=== PATIENT | male | born 1940 | race Caucasian/White ===

== ENCOUNTER 2019-10-02 08:34 | Day surgery (SDC) | payer MEDICARE, OTHER, SELFPAY ==
[2019-10-01 14:31] VITALS: BMI 29.2
[2019-10-02 09:27] VITALS: BP 119/62; PULSE 76; RESP 18; TEMP 36.6; O2SAT 96
--- NOTE | 2019-10-02 09:30 | W.PM.OPSUD ---
Surgery/Procedure H&P Update DATE OF PROCEDURE: October 02, 2019 DATE H&P PERFORMED: 09/30/19 H&P UPDATE INFORMATION: I have reviewed H&P completed within last 30 days, I have examined patient prior to procedure and No changes to prior documentation PREOP DIAGNOSIS: Subcutaneous mass left arm PLANNED PROCEDURE: Operation Date: 10/02/19 10:15 Proposed Procedures p Excision Mass of subcutaneous left thumb 73071 R22.32(Not Applicable) - Antwan Moore MD
[2019-10-02] MEDS: sodium chloride 0.9% 1,000 ML 30 ML IV (09:33)
[2019-10-02 09:37] LABS: Glucose Point of Care 164 mg/dL (70-110)
--- NOTE | 2019-10-02 09:56 | ANES.PREANE2 ---
Pre-Anesthetic Assessment Pre-Anesthetic Assessment: Height/Weight: Height 1.6 m Weight 74.843 kg Temp Pulse Resp BP Pulse Ox 97.9 F 76 18 119/62 96 10/02/19 09:27 10/02/19 09:27 10/02/19 09:27 10/02/19 09:27 10/02/19 09:27 Preop Diagnosis: Subcutaneous mass left arm Proposed Procedure: Operation Date: 10/02/19 10:15 Proposed Procedures p Excision Mass of subcutaneous left thumb 69712 R22.32(Not Applicable) - Antwan Moore MD Was Beta Ofe taken within 24 hours: Yes Last intake: Intake Last Liquid Date 09/30/19 Last Liquid Time 14:00 Last Solid Date 09/30/19 Last Solid Time 14:00 Social: Comment: chews Exam: Pre-Anes Outpt Exam: alert, oriented x 3, clear to auscultation bilaterally and regular rate & rhythm Airway: Submandibular: WNL Cervical ROM: Other MP: 2 CV/HEM: CV/HEM: HTN and VA Comments: '16 Cabg Metabolic: Metabolic: DM Comments: 4Y, NORMALLY does not follow Anesthetic Plan: ASA status: 3 Anesthesia: MAC Meds/Allergies Current Medications: Current Medications Generic Name Dose Route Start Last Admin Trade Name Freq PRN Reason Stop Dose Admin Sodium Chloride 1,000 mls @ 30 ml s/hr 10/02/19 09:00 10/02/19 09:33 Sodium Chloride 0.9% IV 10/03/19 08:59 30 mls/hr .Q24H KRISTY Administration PFSH Anesthesia PFSH: Social History (Updated 10/01/19 @ 14:26 by Shelby Erwin) Smoking and tobacco status: never smoked Alcohol intake: never History of recent travel: No Data Anesthesia Other Labs: Laboratory Results - last 48 hr 10/02/19 09:35 POC Glucose 164 Cardiac Studies: No Data to Display
[2019-10-02] MEDS: lidocaine 1% INJ 20 mL IM (10:38)
[2019-10-02 11:24] VITALS: BP 97/48; PULSE 57; RESP 16; TEMP 37.3; O2SAT 97
--- NOTE | 2019-10-02 11:26 | PM.OP ---
Operative Report Date of procedure: October 02, 2019 Pre-op Diagnosis: Subcutaneous mass left thumb Post-op diagnosis: same Procedure Done: Excision of subcutaneous mass left thumb measuring 2.5 x 2.5 cm Specimens removed/disposition: Subcutaneous mass left thumb Surgeon: Antwan Moore Anesthesia: MAC Disposition: same day Procedure: The patient was taken to the operating room and placed under MAC after the left arm was prepped and draped in a sterile manner. Using a 15 blade an elliptical incision was made longitudinally measuring 4 cm extending from the metacarpophalangeal joint down to the base of the nailbed. Using combination of 15 blade and electrocautery the subcutaneous mass along with the overlying skin was dissected free from the surrounding subcutaneous tissue and underlying tendon. Medial and lateral skin flaps were raised and the skin was approximated using interrupted 3-0 Prolene suture. Incision was covered with antibiotic cream, Telfa and 2 inch Kerlix gauze and a splint was applied to prevent flexion. The patient was transferred to same-day surgery in stable condition.
[2019-10-02 11:47] VITALS: BP 91/46; PULSE 57; RESP 18; TEMP 37.2; O2SAT 98
== END 2019-10-02 12:12 | disposition home or self-care (01) ==
PROVIDERS: Family Provider Registered Nurse; PCP Registered Nurse; Visit Provider Surgery
PROC: (CPT 64788; principal; 2019-10-02 10:05)
DX: D36.12 Benign neoplasm of peripheral nerves and autonomic nervous system, upper limb, including shoulder (principal); F17.220 Nicotine dependence, chewing tobacco, uncomplicated; I10 Essential (primary) hypertension; I25.2 Old myocardial infarction; E11.9 Type 2 diabetes mellitus without complications; Z95.1 Presence of aortocoronary bypass graft; E78.5 Hyperlipidemia, unspecified; Z79.82 Long term (current) use of aspirin; Z79.84 Long term (current) use of oral hypoglycemic drugs
CPT/HCPCS: 64788; 12345; 36416; 82962; 88309; J2001; J2250; J2704; J3010; J3490; J7030

== ENCOUNTER 2023-10-11 16:09 | Inpatient (IN) | payer MEDICARE, OTHER, SELFPAY ==
[2023-10-11] VITALS (57 sets, daily range): BP systolic 103–170; BP diastolic 58–92; PULSE 70–133; RESP 10–48; TEMP 36.3–39.6; O2SAT 90–98
--- NOTE | 2023-10-11 16:10 | ECG_ITS ---
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 Measurements Intervals Sigel Rate: 117 P: 0 MS: 0 QRS: 14 QRSD: 135 T: 124 QT: 344 QTc: 481 Interpretive Statements ATRIAL FIBRILLATION WITH RAPID VENTRICULAR RESPONSE INTRAVENTRICULAR CONDUCTION DELAY [130+ ms QRS DURATION] Compared to ECG 01/14/2016 04:40:54 Intraventricular conduction delay now present Sinus tachycardia no longer present T-wave abnormality no longer present Myocardial infarct finding no longer present Electronically Signed On 10-12-2023 14:46:45 SEQUENCING MACHINE OPERATOR by Torres Zayas M.D. [id number]
--- NOTE | 2023-10-11 16:10 | CTR_ITS ---
PROCEDURE INFORMATION: Exam: CT Head Without Contrast Exam date and time: 10/11/2023 4:11 PM Age: 83 years old Clinical indication: Stroke-like symptoms; Altered mental status/memory loss; Additional info: Symptoms of acute stroke TECHNIQUE: Imaging protocol: Computed tomography of the head without contrast. Radiation optimization: All CT scans at this facility use at least one of these dose optimization techniques: automated exposure control; mA and/or kV adjustment per patient size (includes targeted exams where dose is matched to clinical indication); or iterative reconstruction. Other technique: STROKE PROTOCOL was implemented. COMPARISON: No relevant prior studies available. RADIATION DOSE METRICS: Total DLP (mGy-cm): 1872 FINDINGS: Brain: There is diffuse cerebral atrophy and chronic microvascular white matter disease. There is no significant mass effect or midline shift. There is no acute intracranial hemorrhage. Cerebral ventricles: There is mild ex vacuo dilation of the lateral ventricles. The basal cisterns are unremarkable. Paranasal sinuses: Normal edema. There is mucosal thickening and fluid in the left maxillary sinus. There is mucosal thickening in the ethmoid air cells bilaterally. There is mucosal thickening and fluid in the sphenoid sinuses bilaterally. Mastoid air cells: The mastoid air cells are clear. Orbital cavities: Probably chronic aspherical contour of the right globe. Right lens is not visible. No intraorbital edema. Bones/joints: The calvarium is intact. Soft tissues: The visible extracranial soft tissues are unremarkable. There is trace gas in the right cavernous sinus and in the upper right facial soft tissues, likely venous gas related to peripheral venipuncture. CT/CT head thrombolytic 02249 IMPRESSION: 1. No acute intracranial abnormality. 2. Left maxillary, bilateral sphenoid and bilateral ethmoid sinusitis, possibly acute. 3. Incidental findings above. ASSESSMENT: ASPECTS ([place] Stroke Program Early CT Score) is 10.
--- NOTE | 2023-10-11 16:28 | XRR_ITS ---
PROCEDURE INFORMATION: Exam: XR Chest Exam date and time: 10/11/2023 4:35 PM Age: 83 years old Clinical indication: Other: AMS; Additional info: SOB TECHNIQUE: Imaging protocol: Radiologic exam of the chest. Views: 1 view. COMPARISON: No relevant prior studies available. FINDINGS: Lungs: There is extensive patchy ground-glass opacity throughout both lungs. Pleural spaces: There is no pleural effusion or pneumothorax. Heart/Mediastinum: There is moderate enlargement of the cardiac silhouette. Bones/joints: Sternal wires are present. There is no displacement to suggest sternal dehiscence. XR/XR chest 1V portable [id number] IMPRESSION: 1. Extensive bilateral pulmonary opacity is nonspecific. Differential diagnosis includes cardiogenic pulmonary edema, infection, pulmonary hemorrhage, interstitial lung disease, and acute lung injury. 2. Cardiac enlargement.
[2023-10-11 16:33] LABS: Glucose Point of Care 310 mg/dL (70-110)
[2023-10-11 16:34] LABS: Basophils % 0.1 %; Hematocrit 37.6 % (37-53); Lymphocytes # 0.3 10^3/uL (0.8-4.8); Mean Corpuscular HGB Conc 33.5 g/dL (30-55); Mean Corpuscular Hemoglobin 31.8 pg (27-33); Mean Corpuscular Volume 94.9 fl (82-101); Mean Platelet Volume 9.5 fL (7.4-10.4); Monocytes # 0.3 10^3/uL (0.2-0.9); Monocytes % 3.8 %; Neutrophils # 7.47 10^3/uL (1.8-7.7); Neutrophils % 90.9 %; Nucleated Red Blood Cells % 0 %; Platelet Count 246 10^3/cmm (157-399); Red Blood Count 3.96 10^6/uL (3.85-5.65); Red Cell Distribution Width 12.9 % (12.1-15.1); White Blood Count 8.22 10^3/uL (3.29-11.43)
--- NOTE | 2023-10-11 16:37 | ED_ITS ---
HPI - Neuro Symptoms/Deficit 2 General: Chief Complaint: Altered Mental Status Stated Complaint: Stoke Alert Time Seen by Provider: 10/11/23 16:10 Source: patient and EMS Mode of arrival: EMS Limitations: no limitations History of Present Illness: 83-year-old male brought in by EMS for s troke alert per EMS home health states that he went to bed 1130 was normal and when he woke up at 230 he was quite confused not following commands and seemed weak. Patient here is able to tell me his name not really able answer any other questions he does move both arms he will not move either legs patient is tachypneic here in appears short of breath he is febrile to 103.2 no known recent illnesses. Patient's family here now states he did test positive for COVID 6 days ago Review of Systems 2 General: Reports: ROS unobtainable due to mental status PFSH ED 2 PFSH: Medical History Hx of coronary artery disease Hyperlipidemia Diabetes Hypertension Surgical History History of local excision of skin lesion Neurofibroma left thumb Hx of CABG Family History Denies family history of Anesthesia complication Bleeding disorder Social History Smoking and tobacco/nicotine status: never used tobacco/nicotine Alcohol intake: never Substance/Drug Use: never Physical Exam 2 Const: COMMON NORMALS: negative for patient oriented x3 GENERAL APPEARANCE: ill appearing HENMT: COMMON NORMALS: normocephalic and atraumatic HEAD & SCALP: n ormocephalic and atraumatic Eye: COMMON NORMALS: Equal, round and reactive pupils present and EOMs intact bilaterally PUPIL: Yes Equal, round and reactive pupils present Neck/C-Spine: COMMON NORMALS: full ROM and supple Chest: COMMONS NORMALS: normal inspection of the chest and normal palpation of entire chest wall Resp: EFFORT & INSPECTION: Yes tachypneic, Yes respiratory distress, Yes labored and Yes audible wheezes AUSCULTATION: rales Cardio: COMMON NORMALS: No murmurs present (Cardio) RATE: tachycardic R HYTHM: abnormal rhythm irregularly irregular GI: COMMON NORMALS: Normal to inspection, nondistended, normoactive bowel sounds present, Soft to palpation, non-tender and no masses PALPATION: Yes Soft to palpation Extremity: COMMON NORMALS: normal to inspection and full ROM Neuro: COMMON NORMALS: negative for patient oriented x3 Psych: COMMON NORMALS: negative for mental status grossly normal Skin: COMMON NORMALS: no rashes or lesions noted and no wounds GENERAL SKIN EXAM: no rashes or lesions noted Course 2 Vital Signs: Vital signs: Vital Signs Temperature 103.2 F H 10/11/23 16:15 Pulse Rate 114 H 10/11/23 17:45 Respiratory Rate 24 H 10/11/23 17:45 Blood Pressure 132/61 10/11/23 17:45 Pulse Oximetry 95 10/11/23 17:45 Oxygen Delivery Me thod BiPAP 10/11/23 17:45 Oxygen Flow Rate 2 10/11/23 16:40 Fraction of Inspir ed Oxygen 30 10/11/23 17:10 MDM - Neuro Symptoms/Deficit Medical Decision Making Patient presents here with confusion he has no focal deficits here he was in respiratory distress he tested positive for COVID 6 days ago his x-ray is consistent with a COVID-pneumonia he is on BiPAP here. His signs do qualify him for sepsis but I did stop his IV fluids as he appears fluid overloaded as well and his BNP is elevated and feel that we will do more harm with IV fluids spoke to the hospitalist will admit the ICU at this time. Medical Records I reviewed the patient's medical records. Lab Data I reviewed the patient's lab results. 10/11/23 16:26 10/11/23 16:[address] 10/11/23 16:10 IMPRESSION: 1. No acute intracranial abnormality. 2. Left maxillary, bilateral sphenoid and bilateral ethmoid sinusitis, possibly acute. 3. Incidental findings above. ASSESSMENT: ASPECTS ([place] Stroke Program Early CT Score) is 10. ADDENDUM: 10/11/23 0160 THIS REPORT CONTAINS FINDINGS THAT MAY BE CRITICAL TO PATIENT CARE. The findings and recommendations were verbally communicated by me via telephone conference with BRIANNE TODD at 4:43 PM PALLIATIVE MEDICINE PHYSICIAN on 10/11/2023. The findings were acknowledged and understood. Chest X-Ray 10/11/23 16:28 IMPRESSION: 1. Extensive bilateral pulmonary opacity is nonspecific. Differential diagnosis includes cardiogenic pulmonary edema, infection, pulmonary hemorrhage, interstitial lung disease, and acute lung injury. 2. Cardiac enlargement. Laboratory Results WBC 8.22 10^3/uL (3.29-11.43) 10/11/23 16:26 RBC 3.96 10^6/uL (3.85-5.65) 10/11/23 16:26 Hgb 12.60 g/dL (11.27-16.99) 10/11/23 16:26 Hct 37.6 % (37-53) 10/11/23 16:26 MCV 94.9 fl (82-101) 10/11/23 16:26 MCH 31.8 pg (27-33) 10/11/23 16:26 MCHC 33.5 g/dL (30-55) 10/11/23 16:26 RDW 12.9 % (12.1-15.1) 10/11/23 16:26 Plt Count 246 10^3/cmm (157-399) 10/11/23 16:26 MPV 9.5 fL (7.4-10.4) 10/11/23 16:26 Neut % (Auto) 90.9 % 10/11/23 16:26 Lymph % (Auto) 4.0 % 10/11/23 16:26 [place] % (Auto) 3.8 % 10/11/23 16:26 Eos % (Auto) 0.0 % 10/11/23 16:26 Baso % (Auto) 0.1 % 10/11/23 16:26 Neut # (Auto) 7.47 10^3/uL (1.8-7.7) 10/11/23 16:26 Lymph # (Auto) 0.3 10^3/uL (0.8-4.8) L 10/11/23 16:26 [place] # (Auto) 0.3 10^3/uL (0.2-0.9) 10/11/23 16:26 Eos # (Auto) 0.0 10^3/uL (0.0-0.8) 10/11/23 16:26 Baso # (Auto) 0.0 10^3/uL (0.0-0.1) 10/11/23 16:26 Nucleated RBC % (auto) 0 % 10/11/23 16:26 Nucleated RBCs # 0.0 /100WBC 10/11/23 16:26 PT 16.10 SECONDS (12.1-14.9) H 10/11/23 16:26 INR 1.25 (0.8-1.2) H 10/11/23 16:26 APTT 35.2 SECONDS (23.9-36.7) 10/11/23 16:26 Specimen Type Arterial 10/11/23 16:45 Sample Site Brachial, left 10/11/23 16:45 ABG pH 7.50 (7.35-7.45) H 10/11/23 16:45 ABG pCO2 30.3 mmHg (35-45) L 10/11/23 16:45 ABG pO2 89.4 mmHg (80.0-100.0) 10/11/23 16:45 ABG PO2/FiO2 Ratio 0 10/11/23 16:45 ABG HCO3 23.7 mmol/L (22-26) 10/11/23 16:45 ABG Base Excess 1.2 mmol/L (-2.0-2.0) 10/11/23 16:45 David Test N/a 10/11/23 16:45 Hematocrit 37.0 % (42-52) L 10/11/23 16:45 O2 Delivery Device Nc 10/11/23 16:45 O2 Liters/Min 2.0 % 10/11/23 16:45 FiO2 28.0 % 10/11/23 16:45 Substitute Teacher ID Amh 10/11/23 16:45 Sodium 133 mmol/L (136-145) L 10/11/23 16:26 Potassium 4.5 mmol/L (3.5-5.1) 10/11/23 16:26 Chloride 96 mmol/L (98-107) L 10/11/23 16:26 Carbon Dioxide 23 mmol/L (22-29) 10/11/23 16:26 Anion Gap 18.5 (5-19) 10/11/23 16:26 BUN 20 mg/dL (8-23) 10/11/23 16:26 Creatinine 0.9 mg/dL (0.7-1.2) 10/11/23 16:26 GFR Calculation Not Reportable 10/11/23 16:26 Glucose 317 mg/dL (65-115) H 10/11/23 16:26 POC Glucose 310 mg/dL (70-110) H 10/11/23 16:23 Calculated Osmolality 291 mOsm/kg (285-295) 10/11/23 16:26 Lactic Acid 2.2 mmol/L (0.5-2.2) 10/11/23 16:26 Calcium 8.1 mg/dL (8.5-10.5) L 10/11/23 16:26 Total Bilirubin 0.8 mg/dL (0.15-1.2) 10/11/23 16:26 AST 16 U/L (0-40) 10/11/23 16:26 ALT 29 U/L (0-41) 10/11/23 16:26 Alkaline Phosphatase 70 U/L (40-130) 10/11/23 16:26 Ammonia 18 umol/L (16-60) 10/11/23 16:26 NT-Pro-B Natriuret Pep 41715 pg/mL (0-450) H 10/11/23 16:26 Total Protein 6.8 g/dL (6.6-8.7) 10/11/23 16:26 Albumin 3.1 g/dL (3.5-5.2) L 10/11/23 16:26 Globulin 3.7 g/dL (1.3-4.6) 10/11/23 16:26 All radiology interpretation(s) finalized by discharge EKG Data EKG 1: I personally reviewed and interpreted this EKG as follows: EKG interpretation date: 10/11/23 EKG interpretation time: :24 Interpretation: afib with rvr hr [address] or twave abnormalities qrs 135 qtc 413 Critical Care Time 2 Critical Care Time: Critical Care Time: Yes Total Critical Care Time: 50 Attestation: The high probability of a clinically significant, sudden or life threatening deterioration of the patient's resp system(s) required my full and direct attention, intervention and personal management. The critical care time is as shown. This time is in addition to time spent performing any reported procedures but includes the following: [x] Data and vital sign review and interpretation [x] Patient assessment, examination and intervention [x] Documentation [x] Medication orders and management Discharge Plan Discharge Patient Disposition: Admitted As Inpatient Clinical Impression: Altered mental status, COVID-19, Acute respiratory failure with hypoxia Condition: Stable Coding Level of Care Code ED Decorator Inspector for Geoff Vidales
[2023-10-11] MEDS: ipratropium-albuterol 3 mL Neb INHALATION (16:40)
[2023-10-11 16:45] LABS: INR 1.25 (0.8-1.2)
[2023-10-11 16:46] LABS: Partial Thromboplastin Time 35.2 SECONDS (23.9-36.7)
[2023-10-11] MEDS: acetaminophen 1,000 MG/100 ML PIGGYBACK 400 MG IV (16:46)
[2023-10-11] MEDS: sodium chloride 0.9% 1,000 ML 999 ML IV (16:46)
--- NOTE | 2023-10-11 16:54 | PC.PHAR ---
PT'S FAMILY STATES HE HAS NOT BEEN TO THE DOCTOR IN OVER A YEAR. LAST MEDICATION FILLED WAS C[facility] AT [facility]. I PHONED [facility]ILIE [facility]. LAST MEDICATIONS ON THIS PT FILLED IN 2021. 10/11/23
[2023-10-11 16:56] LABS: ABG PCO2 30.3 mmHg (35-45); Base Excess ABG 1.2 mmol/L (-2.0-2.0); Blood Gas Operator Identificat AMH; Blood Gas Sample Site Brachial, left; Blood Gas Sample Type Arterial; HCO3 ABG 23.7 mmol/L (22-26); Oxygen Device NC; PO2 ABG 89.4 mmHg (80.0-100.0); PO2 FiO2 Ratio Arterial Blood 0
[2023-10-11 17:04] LABS: Ammonia 18 umol/L (16-60)
[2023-10-11 17:15] LABS: Alanine Aminotransferase 29 U/L (0-41); Albumin Level 3.1 g/dL (3.5-5.2); Alkaline Phosphatase 70 U/L (40-130); Anion Gap 18.5 (5-19); Aspartate Amino Transferase 16 U/L (0-40); Blood Urea Nitrogen 20 mg/dL (8-23); Calcium 8.1 mg/dL (8.5-10.5); Carbon Dioxide 23 mmol/L (22-29); Chloride 96 mmol/L (98-107); Creatinine Clr Calc Pharmacy 64.7939; Globulin 3.7 g/dL (1.3-4.6); Glucose 317 mg/dL (65-115); NT Pro B Type Natriuretic Pept 10280 pg/mL (0-450); Osmolality Calculated 291 mOsm/kg (285-295); Potassium 4.5 mmol/L (3.5-5.1); Sodium 133 mmol/L (136-145); Total Bilirubin 0.8 mg/dL (0.15-1.2); Total Protein 6.8 g/dL (6.6-8.7)
[2023-10-11 17:22] LABS: Lactic Sepsis W/Reflex 2.2 mmol/L (0.5-2.2)
--- NOTE | 2023-10-11 17:40 | P.HP_ITS ---
Providers/Chief Complaint 2 Primary Care Provider: Alexa Berry DO Chief Complaint: Stoke Alert History of Present Illness Junior Li Everett is a 83 year old male with history of CABG, dementia, was recently discharged from the hospital 2 days ago from [facility] after management of COVID-19 and shortness of breath as per the niece who is at the bedside there was no albuterol or oxygen prescribed, he presented back because he has been confused and short of breath. Code stroke was called however that was ruled out CT head unremarkable. He was diagnosed with pulmonary congestion, sepsis related to COVID-19 septic bolus was discontinued. I gave him Lasix 60 mg he has received antibiotics. He has high-grade fever. He is oriented to himself We put him on BiPAP to decrease work of breathing ABG showing hypoxia Review of Systems 2 Const: Reports: fever(s) and chills Eyes: Denies: change in vision ENMT: Denies: throat pain Card: Denies: chest pain Resp: Reports: dyspnea Medications/Allergies Home Medications Medication Instructions Recorded Confirmed Last Taken Type No Known Home Medications 10/11/23 10/11/23 Unknown History Allergies Allergy/AdvReac Type Severity Reaction Status Date / Time metformin Allergy unknown Verified 04/09/20 08:20 rosuvastatin Allergy ADR-Muscle Verified 10/18/19 09:51 Pain PFSH Acute 2 PFSH: Medical History (Updated 10/11/23 @ 18:12 by Celestina Escalante MD) Dementia Hx of coronary artery disease History of hypertension Hx of chronic arthritis History of CVA (cerebrovascular accident) Hx of chest pain Hx of cholelithiasis History of peripheral arterial disease Hx of hyperlipidemia Hx of coronary artery disease Hyperlipidemia Diabetes Hypertension Surgical History (Updated 10/11/23 @ 18:12 by Celestina Escalante MD) Hx of heart bypass surgery History of local excision of skin lesion Neurofibroma left thumb Hx of CABG Family History Denies family history of Anesthesia complication Bleeding disorder Social History Smoking and tobacco/nicotine status: never used tobacco/nicotine Alcohol intake: never Substance/Drug Use: never Vitals/I&O/Wt Last Vital Signs Temp 103.2 F H 10/11/23 16:15 Pulse 110 H 10/11/23 17:10 Resp 24 H 10/11/23 16:40 BP 170/89 10/11/23 16:15 Pulse Ox 95 10/11/23 17:10 O2 Del Method Nasal Cannula 10/11/23 16:40 O2 Flow Rate 2 10/11/23 16:40 FiO2 30 10/11/23 17:10 10/11/23 10/11/23 10/11/23 06:59 14:59 22:59 Intake Total 482.85 / 482.85 Balance 482.85 / 482.85 Weight last 48 hrs Weight 88.451 kg Physical Exam 2 Narrative: Awake and alert Signs of fluid overload GCS 15 Currently on BiPAP Oriented to himself Blind in right eye Patient not able to provide much detail Experiencing visual hallucination Abdomen soft 1+ edema of legs Napoles catheter in place Data 10/11/23 16:26 10/11/23 16:26 A&P Assessment and plan (1) COVID-19: (2) Altered mental status: (3) Acute respiratory failure with hypoxia: (4) Metabolic encephalopathy: (5) Sepsis: (6) New onset of congestive heart failure: (7) Atrial fibrillation with RVR: Plan COVID-19 Bilateral infiltrates Will add antibiotics for postviral bacterial pneumonia Check echo to learn more about his EF I will diurese him at this point Agree with holding off on aggressive IV fluid hydration despite meeting septic criteria Sepsis secondary to t COVID-19 Criteria met with tachypnea tachycardia fever Not a good candidate to receive septic bolus related to fluid overload condition and pulmonary venous congestion New onset CHF Requested echo Will give him Lasix Metabolic encephalopathy related to sepsis related to COVID-19 Monitor in ICU Increased Rester distress acute hypoxic respiratory failure requiring BiPAP Our threshold to intubate him will stay low Full code N.p.o. for now Can start clear liquid diet once he is more awake and alert and stable As per the niece who is at the bedside who is providing history, because patient is not able to provide much history, patient seems to have component of dementia, he does not use any oxygen at home, they are okay with nursing placement if that is needed, patient normally is very active for his age He carries history of A-fib but he has never been put on any anticoagulating agent Dedrick Mcgee 5 I will keep him on therapeutic Lovenox Will describe Eliquis at the time of discharge Attestations 2 Medical Necessity Statement*: More than 2 midnights anticipated Diagnoses COVID-19 U07.1 Altered mental status R41.82 Acute respiratory failure with hypoxia J96.01 Metabolic encephalopathy G93.41 Sepsis A41.9 New onset of congestive heart failure I50.9 Atrial fibrillation with RVR I48.91
--- NOTE | 2023-10-11 17:44 | USCV_ITS ---
Junior Marguerite Age: 83 Gender: M : 1940 Exam Date: 10/11/2023 19:09 Ordering Phys: Celestina Escalante MD Technologist: TERRI Exam Location: [facility] [place] Indication: COVID+ febrile 103F , order says chf . History of CABG 1994 BP: 132 / 61 HR: 75 Rhythm: Sinus Technical Quality: Adequate MEASUREMENTS (Male / Female) Normal Values 2D ECHO LV Diastolic Diameter PLAX 3.8 cm 4.2 - 5.9 / 3.9 - 5.3 cm LV Systolic Diameter PLAX 3.2 cm IVS Diastolic Thickness 2.0 cm 0.6 - 1.0 / 0.6 - 0.9 cm IVS Systolic Thickness 2.1 cm LVPW Diastolic Thickness 1.4 cm 0.6 - 1.0 / 0.6 - 0.9 cm LVPW Systolic Thickness 1.6 cm LVOT Diameter 1.9 cm LV Ejection Fraction 2D Teich 30.6 % LV Ejection Fraction MOD 2C 36.9 % LV Ejection Fraction 2C AL 36.9 % LA Diameter 6.2 cm Aorta at Sinotubular Diameter 3.9 cm IVC Diameter 1.7 cm M-MODE LA Ao Ratio MM 1.3 AV Cusp Separation MM 1.1 cm DOPPLER AV Peak Velocity 192.0 cm/s LVOT Peak Velocity 97.0 cm/s AV Area Cont Eq vti 1.6 cm squared AV Area Cont Eq pk 1.5 cm squared MV Peak Velocity 135.0 cm/s MV Area PHT 2.9 cm squared Mitral E to A Ratio 20.1 TV Peak Velocity 215.0 cm/s TR Peak Velocity 220.0 cm/s TR Peak Gradient 19.4 mmHg TV Peak E Velocity 37.0 cm/s Right Atrial Pressure 10.0 mmHg Pulmonary Artery Systolic Pressu 29.4 mmHg PV Peak Velocity 76.0 cm/s FINDINGS Left Ventricle Left ventricle is normal in size. LV systolic function is mildly reduced with EF of 40-45%. Mild global hypokinesis. Right Ventricle Mildly hypokinetic Right Atrium Normal in size Left Atrium Dilated. Mitral Valve Mitral valve is thickened. Mild mitral regurgitation Aortic Valve Aortic valve is thickened and calcified. Mild to moderate aortic regurgitation. Mild aortic stenosis with aortic valve area 1.56 cm squared and mean gradient of 7.7 mmHg. Tricuspid Valve Trace tricuspid regurgitation. Pulmonary artery systolic pressure is normal. 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 IVC Appears to be normal CONCLUSIONS LV systolic function is mildly reduced with EF of 40-45% Left atrial dilation. Mild mitral regurgitation. Mild to moderate aortic regurgitation. Mild aortic stenosis. Trace tricuspid regurgitation. Small sized pericardial effusion. 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 Compared to prior echocardiogram from 2016, LV systolic function has decreased now and patient has dilated ascending aorta. Torres Zayas MD (Electronically Signed) Final Date: 12 October 2023 13:46 S
[2023-10-11] MEDS: dexamethasone 10 mg/mL INJ IVP (17:47)
[2023-10-11 18:04] LABS: Amphetamines Screen Urine Negative (Negative); Barbiturates Screen Urine Negative (Negative); Benzodiazepines Screen Urine Negative (Negative); Cocaine Screen Urine Negative (Negative); Opiate Screen Urine Negative (Negative); PCP Screen Urine Negative (Negative); THC Screen Urine Negative (Negative)
[2023-10-11 18:05] LABS: Bilirubin Urine Neg (Negative); Blood Urine 2+ (Negative); Glucose Urine UA 4+ (Normal); Ketones Urine 2+ (Negative); Leukocyte Esterase Urine Negative (Negative); Nitrate Urine Negative (Negative); Protein Urine 1+ (Negative); Urine Appearance Clear (CLEAR); Urine Color Yellow (Yellow); Urobilinogen Urine 1 mg/dL (Negative); pH Urine 5 (5-7)
[2023-10-11 18:06] LABS: Add Urine Microscopic? YES
[2023-10-11 18:08] LABS: Add Urine Culture? No; Amorphous Sediment Urine TRACE /hpf; Bacteria Urine TRACE /hpf; Mucus Urine 2+ /hpf; Squamous Epithelial Cell Urine 0-4 /hpf (0-5); WBC Urine 0-4 /hpf (0-5)
[2023-10-11] MEDS: FUROsemide 10 mg/mL SDV 10mL 60 MG IVP (18:09)
[2023-10-11] MEDS: pantoprazole 40 mg SDV IVP (18:14)
[2023-10-11] MEDS: piperacillin-tazobactam 3.375 GM in sodium chloride 0.9% (plus) 50 ML IV (18:17)
[2023-10-11 18:26] LABS: D Dimer 1.56 ug/mLFEU (0-0.59)
[2023-10-11 18:33] LABS: Procalcitonin 1.01 ng/mL (0-0.5); Thyroid Stimulating Hormone 1.43 uIU/mL (0.27-4.20); Vitamin B12 576 pg/mL (232-1245)
[2023-10-11 18:44] LABS: Magnesium 1.7 mg/dL (1.7-2.3)
[2023-10-11 18:52] LABS: Influenza A by IFA negative (Negative); Influenza B by IFA negative (Negative); SARS Covid-2 Antigen negative (Negative)
[2023-10-11 18:58] LABS: Reflex Lactate Order REFLEX LACTIC ORDERD
[2023-10-11] MEDS: vancomycin 1,000 MG in sodium chloride 0.9% 250 ML 250 MG IV (19:03)
--- NOTE | 2023-10-11 20:10 | PC.NURSE ---
Report was called to HAYLEY Alegria in ICU. All questions and concerns were addressed at time of report.
[2023-10-11 20:17] LABS: Lactic Acid level (Lactate) 1.3 mmol/L (0.5-2.2)
[2023-10-11 20:22] LABS: Adenovirus Not Detected (NOT DETECT); Chlamydia Pneumoniae Not Detected (NOT DETECT); Coronavirus 229E,HKU1,NL63,OC4 Not Detected (NOT DETECT); Human Metapneumovirus Not Detected (NOT DETECT); Human Rhinovirus/Enterovirus Not Detected (NOT DETECT); Influenza A Not Detected (NOT DETECT); Influenza A H1 Not Detected (NOT DETECT); Influenza A H1-2009 Not Detected (NOT DETECT); Influenza A H3 Not Detected (NOT DETECT); Influenza B Not Detected (NOT DETECT); Mycoplasma Pneumoniae Not Detected (NOT DETECT); Parainfluenza Virus Type 1 Not Detected (NOT DETECT); Parainfluenza Virus Type 2 Not Detected (NOT DETECT); Parainfluenza Virus Type 3 Not Detected (NOT DETECT); Parainfluenza Virus Type 4 Not Detected (NOT DETECT); Respiratory Syncytial Virus A Not Detected (NOT DETECT); Respiratory Syncytial Virus B Not Detected (NOT DETECT)
[2023-10-11 20:26] LABS: SARS-COV-2 Detected (NOT DETECT)
--- NOTE | 2023-10-11 22:47 | PC.NURSE ---
Patient currently NSR with heart rate at 72. Spoke with Dr Webster regarding metoprolol and cardizem due. Received instruction to not give Cardizem dose and continue with the Metoprolol dosing. RBVO
[2023-10-11] MEDS: remdesivir 200 MG in sodium chloride 0.9% (100 ml) 60 ML 100 MG IV (22:57)
[2023-10-11] MEDS: metoprolol tartrate 25 mg Tablet PO (22:57)
[2023-10-11] MEDS: enoxaparin 100 mg/mL Syringe 90 MG SUBCUT (22:57)
[2023-10-12] VITALS (94 sets, daily range): BP systolic 62–171; BP diastolic 41–95; PULSE 60–118; RESP 12–29; TEMP 35.8–37.2; O2SAT 90–100
[2023-10-12 05:17] LABS: Basophils % 0.1 %; Hematocrit 40.3 % (37-53); Lymphocytes # 0.4 10^3/uL (0.8-4.8); Lymphocytes % 3.8 %; Mean Corpuscular HGB Conc 33.3 g/dL (30-55); Mean Corpuscular Hemoglobin 31.8 pg (27-33); Mean Corpuscular Volume 95.7 fl (82-101); Mean Platelet Volume 9.7 fL (7.4-10.4); Monocytes # 0.2 10^3/uL (0.2-0.9); Monocytes % 2.3 %; Neutrophils # 8.54 10^3/uL (1.8-7.7); Nucleated Red Blood Cells % 0 %; Platelet Count 261 10^3/cmm (157-399); Red Blood Count 4.21 10^6/uL (3.85-5.65); Red Cell Distribution Width 13.1 % (12.1-15.1); White Blood Count 9.18 10^3/uL (3.29-11.43)
[2023-10-12 05:21] LABS: ABG PCO2 34.1 mmHg (35-45); ABG PH Result 7.48 (7.35-7.45); Arterial Blood Gas Hematocrit 31.6 % (42-52); Base Excess ABG 1.9 mmol/L (-2.0-2.0); Blood Gas Allen Test Pos; Blood Gas Operator Identificat JB; Blood Gas Sample Site Radial, right; Blood Gas Sample Type Arterial; HCO3 ABG 25.3 mmol/L (22-26); Oxygen Device BIPAP; PO2 ABG 92.9 mmHg (80.0-100.0); PO2 FiO2 Ratio Arterial Blood 0
[2023-10-12 05:54] LABS: Blood Urea Nitrogen 23 mg/dL (8-23); C Reactive Protein 286.6 mg/L (0.0-4.9); Calcium 8.1 mg/dL (8.5-10.5); Carbon Dioxide 26 mmol/L (22-29); Chloride 94 mmol/L (98-107); Creatinine Clr Calc Pharmacy 57.5244; Glucose 394 mg/dL (65-115); Magnesium 2.2 mg/dL (1.7-2.3); Osmolality Calculated 302 mOsm/kg (285-295); Phosphorus 4.3 mg/dL (2.5-4.5); Sodium 136 mmol/L (136-145)
[2023-10-12] MEDS: magnesium sulfate premix 1 GM/100 ML PIGGYBACK IV (05:55)
[2023-10-12] MEDS: etomidate 20 ML 20 MG (06:00)
[2023-10-12] MEDS: succinylcholine 20 mg/mL SDV 10mL 200 MG (06:00)
--- NOTE | 2023-10-12 06:21 | ECG_ITS ---
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 Measurements Intervals [place] Rate: 109 P: 106 NC: 257 QRS: 15 QRSD: 147 T: 184 QT: 371 QTc: 500 Interpretive Statements SINUS TACHYCARDIA WITH FIRST DEGREE AV BLOCK LEFT ATRIAL ENLARGEMENT [-0.15mV P-WAVE IN V1/V2] LEFT BUNDLE BRANCH BLOCK [120+ ms QRS DURATION, 80+ ms Q/S IN V1/V2, 85+ ms R IN I/aVL/V5/V6] Compared to ECG 10/11/2023 16:24:27 First degree AV block now present Atrial abnormality now present Left bundle-branch block now present Atrial fibrillation no longer present Intraventricular conduction delay no longer present Electronically Signed On 10-12-2023 14:44:35 SUGAR SAMPLER by Torres Zayas M.D. [id number]
--- NOTE | 2023-10-12 06:28 | ECG_ITS ---
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 Measurements Intervals [place] Rate: 94 P: 60 PA: 249 QRS: 20 QRSD: 150 T: 200 QT: 400 QTc: 500 Interpretive Statements SINUS RHYTHM WITH FIRST DEGREE AV BLOCK LEFT BUNDLE BRANCH BLOCK [120+ ms QRS DURATION, 80+ ms Q/S IN V1/V2, 85+ ms R IN I/aVL/V5/V6] Compared to ECG 10/12/2023 06:04:55 Sinus tachycardia no longer present Atrial abnormality no longer present Electronically Signed On 10-12-2023 14:44:27 BELT REPAIRER by Torres Zayas M.D. [id number]
--- NOTE | 2023-10-12 06:29 | PC.NURSE ---
At 0545 Code El was called due v-fib on telemetry and no palpable carotid pulse. Code team arrived. ROSC achieved at 0552. Patient intubated at 0559. Dr Webster placing central line to right groin. Patient placed on amiodarone drip, propofol and received 1g mag sulfate. Family notified.
[2023-10-12 06:34] LABS: Alveolar-Arterial Oxygen Gradi 57.9 mmHg (5-10); Arterial Blood Gas Hematocrit 40.6 % (42-52); Base Excess ABG -10.7 mmol/L (-2.0-2.0); Blood Gas Operator Identificat JB; Blood Gas Sample Site Not specified; Blood Gas Sample Type Arterial; Carboxyhemoglobin 0.7 %THgb (0.4-20.1); HCO3 ABG 14.3 mmol/L (22-26); HGB O2 Sat 98.6 % (95-100); Methemoglobin 0.7 % (0.4-1.5); Oxygen Device VENT; PO2 FiO2 Ratio Arterial Blood 0; Potassium Level - ABG 5.1 mmol/L (3.5-5.0); Total Hemoglobin 13.2 g/dL (14-18)
[2023-10-12] MEDS: norepinephrine 4 MG/250 ML BAG 7.5 MG IV (07:00)
--- NOTE | 2023-10-12 07:08 | PM.CCNAC ---
Critical Care Event Note The high probability of a clinically significant, sudden or life threatening deterioration of the patient's [cardivascular, respiratory] system(s) required my full and direct attention, intervention and personal management. The critical care time is as shown. This time is in addition to time spent performing any reported procedures but includes the following: [x] Data and vital sign review and interpretation [x] Patient assessment, examination and intervention [x] Documentation [x] Medication orders and management Critical Care Time Code activated: Yes Critical Care Time (min): 60 Additional information about critical care time: ATA FIGUEROA called this morning after patient developed V-fib. He was unresponsive. ATA FIGUEROA activated. Had 2 rounds of chest compressions. 2 rounds of epinephrine. ROSC was able to be obtained after 2 rounds of CPR. Patient intubated emergently by ER physician Dr. Mills. Blood pressure 222/130 initially, thereafter patient becoming hypotensive around 6:45 AM for which Levophed was started. New changes noted on EKG post CPR. Diffuse ST segment depressions noted on telemetry. Twelve-lead EKG and troponins ordered. Central line attempted to be placed initially in the right femoral, however line removed as it was an arterial stick. Central line was subsequently inserted into the left IJ by Dr. Hendricks. Postintubation and line x-ray pending at this time. Stat labs sent. Family updated. Currently patient is on amiodarone gtt, levophed, full dose a/c as already initiated yesterday Coding Level of Care Code Critical Care
--- NOTE | 2023-10-12 07:09 | P.OP_ITS ---
Operative Report Date of procedure: October 12, 2023 Pre-op diagnosis: Poor vascular access status post arrest Post-op diagnosis: same Procedure done: Right internal jugular vein central line placement Implants: Triple-lumen central line Pathology: none sent Surgeon: Sam Hendricks MD Estimated blood loss (mL): 10 Complications: None observed Condition: critical Disposition: ICU Brief History: I was requested while making rounds in the ICU by Dr. Webster to assess a right groin line placement for possible intra-arterial positioning. Blood gas had been drawn and indeed during our conversation was returned that this was consistent with an arterial placement. We then using ultrasound attempted to identify the vascular anatomy though I believe probably related to some extravasation, this is quite confusing, therefore I recommended a neck approach for central line placement. As the central line was required in an expeditious fashion and the patient was intubated with a history of dementia, I elected to proceed without the opportunity to obtain consent. Procedure: TYPE OF PLACEMENT: Central line right IJ WHERE INSERTED: Right IJ TUNNELED: No IMAGING UTILIZED: Yes/hand-held ultrasound ANESTHESIA: 1% local REASON FOR PLACEMENT: Urgent need for vascular access status post arrest DESCRIPTION OF PROCEDURE PLACEMENT: Monitors were already in place and monitored throughout the procedure. A time out was performed with the nurse present. All necessary supplies were available prior to start. Hand hygiene was performed prior to starting. Maximum barrier technique including hat, mask, sterile gown, and sterile gloves was utilized by all at the sterile field. Site was was prepped with chlorhexidine and a head to toe drape was placed. 3 mL of 1% lidocaine was injected into the skin with a 25 gauge needle. Hand-held ultrasound was utilized for direct visualization. Under direct visualization the needle was inserted into the right IJ vein. A wire was then advanced without difficulty. There were no prolonged runs of ectopy noted. A small incision was then made to facilitate the dilator over which the catheter was placed. The wire was then removed. All ports were then aspirated showing venous return and were each then flushed with sterile normal saline. The catheter was then sutured in place and a Tegaderm was used to cover the insertion site. Patient tolerated the procedure without difficulty or complication. A portable chest x- ray is pending. Patients vital signs remained stable throughout the procedure. At this time it is safe to use the right IJ central line.
--- NOTE | 2023-10-12 07:10 | XR_ITS ---
WS: [id number] Portable AP semiupright chest, 10/12/2023 Clinical Data: cvl line placement Comparison: Portable chest, 10/11/2023 Findings: There is a right internal jugular venous catheter which ends at the caval atrial junction. There is a nasogastric tube and the tip ends in the fundus of the stomach. There is an endotracheal t ube above the shay. The heart and lungs remain the same. Impression: Satisfactory insertion of multiple tubes.
[2023-10-12 07:38] LABS: Troponin(5th) Baseline 29 ng/L (0-15)
--- NOTE | 2023-10-12 08:40 | P.CONIM_ITS ---
Providers/Reason For Consult 2 Consulting Physician/Specialty*: ROZ Don MD/cardiology Reason for Consult*: Patient with V-fib arrest/history of ASHD and coronary bypass surgery/atrial fibrillation/pulmonary edema Requesting Physician: Dr. Escalante Attending Physician: Celestina Escalante MD Primary Care Provider: Alexa Berry DO History of Present Illness History of Present Illness Junior Li Everett is a 83 year old male who is admitted to hospital through the emergency room where he presented with complaints of worsening shortness of breath and altered mental status. The patient was found to be septic and respiratory distress. He had some features of congestive heart failure. He is admitted to hospital for further evaluation management. Initially he was placed on a BiPAP. In the ICU, he had a V-fib arrest. He regained a rhythm and blood pressure with resuscitation. However he remains unconscious. Cardiology consult is requested for further cardiac evaluation recommendations This patient known to have atherosclerotic heart disease and had a coronary bypass surgery here at the [facility] in 2017. For the last 2 years, he has not been to any doctors. According to the family, he stopped taking all his medications a year ago. He was admitted to the outside hospital with COVID-pneumonia ? On September.. He was told to have fluid collection in the left side of the lung. He was discharged home on the 09 October. According to the niece, his shortness of breath kept getting worse since the hospital discharge. He also was getting progressively weak with a low-grade fever and change of mentation. Initially he was taken to the primary care provider. The family was advised to him to be admitted to the hospital for further evaluation and management. He was found to be in respiratory distress in the emergency room. He was placed on BiPAP. Last night, he went into ventricular fibrillation. He had 2 rounds of chest compressions. At that point, he achieved ROSC. Initially he was found to have an accelerated hypertension. Subsequently became hypotensive. He was placed on a low-dose of Levophed. Currently he is on Levophed 7 mics per KG per minute. He is not responding to verbal commands or painful stimuli at this point This patient had a four-vessel coronary bypass surgery [place] [address] Hendricks. He had a PARRA to the LAD, venous graft to the RCA and a Y graft to the intermedius and to the circumflex artery. He used to be followed by Dr. Last up until 2019. Has not been to a physician since then up until his current hospital admission. He did not want to take any more medications and stopped taking all his medications a year ago He is legally blind in his right eye. Has some diminished vision will left eye. Review of Systems 2 Narrative: CONSTITUTIONAL: No fever or chills. Recent COVID-19 and fever as mentioned above EYES: No blurring of vision or other visual disturbances lately. ENT: No hoarseness of voice, auditory disturbances or sore throat. CARDIOVASCULAR: As mentioned above. RESPIRATORY: Progressive shortness of breath as mentioned above GASTROINTESTINAL: No hematemesis or melena. GENITOURINARY: No dysuria or hematuria. INTEGUMENTARY: No skin rashes or history of skin cancer. NEURO: Altered mental status as mentioned above PSYCHIATRIC: No history of psychosis or major depression. HEMATOLOGIC: No bleeding disorders or significant anemia. ENDOCRINE: No history of polyuria or polydipsia. MUSCULOSKELETAL: No recent joint pain or swelling. ALLERGY/IMMUNOLOGY: As mentioned above. Medications/Allergies Home Medications Medication Instructions Recorded Confirmed Last Taken Type No Known Home Medications 10/11/23 10/11/23 Unknown History Allergies Allergy/AdvReac Type Severity Reaction Status Date / Time metformin Allergy unknown Verified 04/09/20 08:20 rosuvastatin Allergy ADR-Muscle Verified 10/18/19 09:51 Pain Current Medications Generic Name Dose Route Start Last Admin Trade Name Freq PRN Reason Stop Dose Admin Enoxaparin Sodium 90 mg 10/11/23 22:00 10/11/23 22:57 Enoxaparin 100 Mg/Ml Syringe SUBCUT 90 mg Q12H KRISTY Administration Furosemide 60 mg 10/11/23 17:45 10/11/23 18:09 Furosemide 10 Mg/Ml Sdv 10ml IVP 60 mg Q12H KRISTY Administration Metoprolol Tartrate 25 mg 10/11/23 21:44 10/11/23 22:57 Metoprolol Tartrate 25 Mg Tablet PO 25 mg BID@0900,2100 KRISTY Administration Pantoprazole Sodium 40 mg 10/11/23 18:00 10/11/23 18:14 Pantoprazole 40 Mg Sdv IVP 40 mg BID KRISTY Administration PFSH Acute 2 PFSH: Medical History Dementia Hx of coronary artery disease History of hypertension Hx of chronic arthritis History of CVA (cerebrovascular accident) Hx of chest pain Hx of cholelithiasis History of peripheral arterial disease Hx of hyperlipidemia Hx of coronary artery disease Hyperlipidemia Diabetes Hypertension Surgical History Hx of heart bypass surgery History of local excision of skin lesion Neurofibroma left thumb Hx of CABG Family History Denies family history of Anesthesia complication Bleeding disorder Social History Smoking and tobacco/nicotine status: never used tobacco/nicotine Alcohol intake: never Substance/Drug Use: never Vitals/I&O/Wt Last Vital Signs Temp 96.4 F L 10/12/23 01:00 Pulse 70 10/12/23 07:10 Resp 14 10/12/23 06:15 BP 145/90 10/12/23 04:00 Pulse Ox 97 10/12/23 04:15 O2 Del Method BiPAP 10/12/23 01:00 O2 Flow Rate 2 10/11/23 16:40 FiO2 100 10/12/23 06:15 10/11/23 10/12/23 10/12/23 22:59 06:59 14:59 Intake Total 882.85 / 882.85 100 / 982.85 Output Total 2550 / 2550 Balance 882.85 / 882.85 -2450 / -1567.15 Weight last 48 hrs Weight 189 lb 8 oz Weight 191 lb 4.8 oz Weight 195 lb Physical Exam 2 Narrative: GENERAL: The patient is intubated and unresponsive to verbal or painful stimuli. The right cornea is opaque. Left pupil is small and nonreactive HEENT: Minimal pallor. No icterus or lymphadenopathy.Oral cavity: There are no mucous membrane lesions. NECK: Trachea appears to be central. No masses noted. No JVD or thyromegaly appreciated. RESPIRATORY: Chest is symmetrical. No intercostals muscle retraction or any accessory muscle activation. There is no chest wall tenderness. Breath sounds are heard bilaterally. Breath sounds are diminished in the bases more so on the left side BREASTS: Deferred. HEART: The heart sounds are normal. No S3 or S4. Soft systolic murmur in the left frontal border. No diastolic murmurs. No pericardial rub ABDOMEN: No vessel pulsations or distention. No tenderness. No organomegaly appreciated. Bowel sounds are normally heard. : Deferred. RECTAL: Deferred. LYMPHATIC: No lymphadenopathy noted in the neck. EXTREMITIES: No edema or cyanosis. No clubbing. The peripheral pulses are weak and extremities are relatively cold. MUSCULOSKELETAL: No acute joint deformities or swelling SKIN: There are no significant rashes or ecchymosis NEUROPSYCHIATRIC: Patient is unresponsive to verbal commands or painful stimuli. no spontaneous movements. Urinary Catheter Management: Napoles: Cath Placed During This Visit: yes Reason for Continuing Indwelling Catheter: Accurate Measurement of Urinary Output in Critically Ill Patients Urinary Catheter Date of Insertion: 10/11/23 Urinary Catheter Time of Insertion: 17:30 Data 10/12/23 04:52 10/12/23 14:21 Other Labs: Laboratory Last Values WBC 9.18 10^3/uL (3.29-11.43) 10/12/23 04:52 RBC 4.21 10^6/uL (3.85-5.65) 10/12/23 04:52 Hgb 13.40 g/dL (11.27-16.99) 10/12/23 04:52 Hct 40.3 % (37-53) 10/12/23 04:52 MCV 95.7 fl (82-101) 10/12/23 04:52 MCH 31.8 pg (27-33) 10/12/23 04:52 MCHC 33.3 g/dL (30-55) 10/12/23 04:52 RDW 13.1 % (12.1-15.1) 10/12/23 04:52 Plt Count 261 10^3/cmm (157-399) 10/12/23 04:52 MPV 9.7 fL (7.4-10.4) 10/12/23 04:52 Neut % (Auto) 93.0 % 10/12/23 04:52 Lymph % (Auto) 3.8 % 10/12/23 04:52 [place] % (Auto) 2.3 % 10/12/23 04:52 Eos % (Auto) 0.0 % 10/12/23 04:52 Baso % (Auto) 0.1 % 10/12/23 04:52 Neut # (Auto) 8.54 10^3/uL (1.8-7.7) H 10/12/23 04:52 Lymph # (Auto) 0.4 10^3/uL (0.8-4.8) L 10/12/23 04:52 [place] # (Auto) 0.2 10^3/uL (0.2-0.9) 10/12/23 04:52 Eos # (Auto) 0.0 10^3/uL (0.0-0.8) 10/12/23 04:52 Baso # (Auto) 0.0 10^3/uL (0.0-0.1) 10/12/23 04:52 Nucleated RBC % (auto) 0 % 10/12/23 04:52 Nucleated RBCs # 0.0 /100WBC 10/12/23 04:52 PT 16.10 SECONDS (12.1-14.9) H 10/11/23 16:26 INR 1.25 (0.8-1.2) H 10/11/23 16:26 APTT 35.2 SECONDS (23.9-36.7) 10/11/23 16:26 D-Dimer 1.56 ug/mLFEU (0-0.59) H 10/11/23 16:16 Specimen Type Arterial 10/12/23 10:40 Sample Site Brachial, right 10/12/23 10:40 ABG pH 7.46 (7.35-7.45) H 10/12/23 10:40 ABG pCO2 31.6 mmHg (35-45) L 10/12/23 10:40 ABG pO2 80.7 mmHg (80.0-100.0) 10/12/23 10:40 ABG PO2/FiO2 Ratio 0 10/12/23 10:40 ABG HCO3 22.6 mmol/L (22-26) 10/12/23 10:40 ABG O2 Saturation 100.0 10/12/23 06:25 ABG Base Excess -0.6 mmol/L (-2.0-2.0) 10/12/23 10:40 David Test Pos 10/12/23 10:40 A-a O2 Gradient 57.9 mmHg (5-10) H 10/12/23 06:25 Hematocrit 37.3 % (42-52) L 10/12/23 10:40 Hgb O2 Saturation 98.6 % (95-100) 10/12/23 06:25 Carboxyhemoglobin 0.7 %THgb (0.4-20.1) 10/12/23 06:25 Methemoglobin 0.7 % (0.4-1.5) 10/12/23 06:25 Total Hemoglobin 13.2 g/dL (14-18) L 10/12/23 06:25 Sodium 135.0 mmol/L (131-143) 10/12/23 06:25 Potassium 5.1 mmol/L (3.5-5.0) H 10/12/23 06:25 Glucose 493.0 mg/dL (70-115) H 10/12/23 06:25 Ionized Calcium 1.0 mmol/L (1.1-1.4) L 10/12/23 06:25 O2 Delivery Device Vent 10/12/23 10:40 O2 Liters/Min 2.0 % 10/11/23 16:45 FiO2 35.0 % 10/12/23 10:40 Tidal Volume 0.40 10/12/23 10:40 PEEP 6.0 cmH20 10/12/23 10:40 Head Men'[employer] Tennis [employer] ID Gd 10/12/23 10:40 Sodium 134 mmol/L (136-145) L 10/12/23 08:34 Potassium 5.0 mmol/L (3.5-5.1) 10/12/23 08:34 Chloride 93 mmol/L (98-107) L 10/12/23 08:34 Carbon Dioxide 20 mmol/L (22-29) L 10/12/23 08:34 Anion Gap 26.0 (5-19) H 10/12/23 08:34 BUN 30 mg/dL (8-23) H 10/12/23 08:34 Creatinine 1.0 mg/dL (0.7-1.2) 10/12/23 08:34 GFR Calculation Not Reportable 10/12/23 08:34 Glucose 485 mg/dL (65-115) H 10/12/23 08:34 POC Glucose 310 mg/dL (70-110) H 10/11/23 16:23 Calculated Osmolality 306 mOsm/kg (285-295) H 10/12/23 08:34 Lactic Acid 2.2 mmol/L (0.5-2.2) 10/11/23 16:26 Lactic Acid (Sepsis) 1.3 mmol/L (0.5-2.2) 10/11/23 19:53 Lactate 4.3 mmol/L (0.5-2.2) H* 10/12/23 08:34 Calcium 7.6 mg/dL (8.5-10.5) L 10/12/23 08:34 Phosphorus 4.3 mg/dL (2.5-4.5) 10/12/23 04:52 Magnesium 2.2 mg/dL (1.7-2.3) 10/12/23 04:52 Total Bilirubin 0.8 mg/dL (0.15-1.2) 10/11/23 16:26 AST 16 U/L (0-40) 10/11/23 16:26 ALT 29 U/L (0-41) 10/11/23 16:26 Alkaline Phosphatase 70 U/L (40-130) 10/11/23 16:26 Ammonia 18 umol/L (16-60) 10/11/23 16:26 Troponin T Baseline 29 ng/L (0-15) H 10/12/23 06:22 Troponin T 120 Minute 61.52 ng/L (0-15) H 10/12/23 08:34 Delta Troponin T 32.52 ABS# (0-10) H* 10/12/23 08:34 C-Reactive Protein 286.6 mg/L (0.0-4.9) H 10/12/23 04:52 NT-Pro-B Natriuret Pep 34943 pg/mL (0-450) H 10/11/23 16:26 Total Protein 6.8 g/dL (6.6-8.7) 10/11/23 16:26 Albumin 3.1 g/dL (3.5-5.2) L 10/11/23 16:26 Globulin 3.7 g/dL (1.3-4.6) 10/11/23 16:26 Vitamin B12 576 pg/mL (232-1245) 10/11/23 16:26 Procalcitonin 1.01 ng/mL (0-0.5) H 10/11/23 16:26 TSH 1.43 uIU/mL (0.27-4.20) 10/11/23 16:26 Urine Color Yellow (Yellow) 10/11/23 17:47 Urine Appearance Clear (CLEAR) 10/11/23 17:47 Urine pH 5 (5-7) 10/11/23 17:47 Ur Specific [place] 1.020 (1.005-1.030) 10/11/23 17:47 Urine Protein 1+ (Negative) H 10/11/23 17:47 Urine Glucose (UA) 4+ (Normal) H 10/11/23 17:47 Urine Ketones 2+ (Negative) H 10/11/23 17:47 Urine Blood 2+ (Negative) H 10/11/23 17:47 Urine Nitrate Negative (Negative) 10/11/23 17:47 Urine Bilirubin Neg (Negative) 10/11/23 17:47 Urine Urobilinogen 1 mg/dL (Negative) H 10/11/23 17:47 Ur Leukocyte Esterase Negative (Negative) 10/11/23 17:47 Urine RBC 5-10 /hpf (0-2) H 10/11/23 17:47 Urine WBC 0-4 /hpf (0-5) H 10/11/23 17:47 Ur Squamous Epith Cells 0-4 /hpf (0-5) H 10/11/23 17:47 Amorphous Sediment Trace /hpf 10/11/23 17:47 Urine Bacteria Trace /hpf (NONE) 10/11/23 17:47 Urine Mucus 2+ /hpf 10/11/23 17:47 Urine Opiates Screen Negative ng/mL (Negative) 10/11/23 17:47 Ur Barbiturates Screen Negative ng/mL (Negative) 10/11/23 17:47 Ur Phencyclidine Scrn Negative ng/mL (Negative) 10/11/23 17:47 Ur Amphetamines Screen Negative ng/mL (Negative) 10/11/23 17:47 U Benzodiazepines Scrn Negative ng/mL (Negative) 10/11/23 17:47 Urine Cocaine Screen Negative ng/mL (Negative) 10/11/23 17:47 U Marijuana (THC) Screen Negative ng/mL (Negative) 10/11/23 17:47 Adenovirus (PCR) Not detected (NOT DETECT) 10/11/23 18:20 C. pneumoniae DNA (PCR) Not detected (NOT DETECT) 10/11/23 18:20 Coronavirus 229E (PCR) Not detected (NOT DETECT) 10/11/23 18:20 Human Metapneumovir PCR Not detected (NOT DETECT) 10/11/23 18:20 Influenza A (H1) PCR Not detected (NOT DETECT) 10/11/23 18:20 Influ A (H1/09) PCR Not detected (NOT DETECT) 10/11/23 18:20 Influenza A (H3) PCR Not detected (NOT DETECT) 10/11/23 18:20 Influenza Type A Ag negative (Negative) 10/11/23 18:20 Influenza Type A (PCR) Not detected (NOT DETECT) 10/11/23 18:20 Influenza Type B Ag negative (Negative) 10/11/23 18:20 Influenza Type B (PCR) Not detected (NOT DETECT) 10/11/23 18:20 M. pneumoniae (PCR) Not detected (NOT DETECT) 10/11/23 18:20 Parainfluenza 1 (PCR) Not detected (NOT DETECT) 10/11/23 18:20 Parainfluenza 2 (PCR) Not detected (NOT DETECT) 10/11/23 18:20 Parainfluenza 3 (PCR) Not detected (NOT DETECT) 10/11/23 18:20 Parainfluenza 4 (PCR) Not detected (NOT DETECT) 10/11/23 18:20 RSV Type A (PCR) Not detected (NOT DETECT) 10/11/23 18:20 RSV Type B (PCR) Not detected (NOT DETECT) 10/11/23 18:20 Entero/Rhino (PCR) Not detected (NOT DETECT) 10/11/23 18:20 SARS-CoV-2 (PCR) Detected (NOT DETECT) A 10/11/23 18:20 SARS-CoV-2 Ag (Rapid) negative (Negative) 10/11/23 18:20 Micro: Microbiology 10/11/23 17:50 Blood Culture - Preliminary Blood SPECIMEN COLLECTED 10/11/23 17:55 Blood Culture - Preliminary Blood SPECIMEN COLLECTED A&P Assessment and plan (1) Ventricular fibrillation: The exact etiology is not clear. Possibility of underlying coronary ischemia causing this is a consideration. Patient has not had a recurrence of the arrhythmia. He may be kept on the IV amiodarone for the time being. (2) Hypotension: This could be multifactorial. Patient is currently on Levophed and dobutamine. This may be continued and titrated up to maintain a mean arterial pressure above 70 Qualifiers: Hypotension type: unspecified hypotension type Qualified Code(s): I95.9 - Hypotension, unspecified (3) Atherosclerotic heart disease of [place] coronary artery without angina pectoris: Patient has a history of four-vessel coronary bypass surgery. The troponin T has a delta of around 2:30 hours. It is possible that he could have had a non- ST elevation myocardial infarction. However because of the resuscitative measures the significance of troponin T is questionable. Qualifiers: [place] vs. transplanted heart: [place] heart Qualified Code(s): I25.10 - Atherosclerotic heart disease of [place] coronary artery without angina pectoris (4) Metabolic encephalopathy: Patient had a fever of 104, since hospital admission. He is on multiple antibiotics. (5) New onset of congestive heart failure: Coronary ischemia, LV dysfunction, systemic infection, etc. are contributing factors. (6) Atrial fibrillation with RVR: Patient has a history of atrial fibrillation. Currently he is in sinus rhythm. (7) Acute respiratory failure with hypoxia: The oxygenation seems to be improving. Currently the patient on FiO2 of 35%. Plan I had a long discussion with the patient's family members. He has a limited CODE STATUS. Family does not want him to undergo any invasive or interventional procedures, if his mental status is not improving Consult Attestations 2 Medical Necessity Statement: Patient requires continued hospital stay for close monitoring and further management Coding Level of Care Code 28782 Diagnoses Ventricular fibrillation I49.01 Hypotension, unspecified hypotension type I95.9 Hypotension type: unspecified hypotension type Atherosclerosis of [place] coronary artery of [place] heart without angina pectoris I25.10 [place] vs. transplanted heart: [place] heart Metabolic encephalopathy G93.41 New onset of congestive heart failure I50.9 Atrial fibrillation with RVR I48.91 Acute respiratory failure with hypoxia J96.01
[2023-10-12] MEDS: pantoprazole 40 mg SDV IVP ×2 (08:53→17:22)
[2023-10-12] MEDS: cefTRIAXone 1,000 MG in sodium chloride 0.9% (plus) 50 ML 100 MG IV (08:53)
[2023-10-12] MEDS: sennosides-docusate Tablet 1 TAB PO (08:54)
--- NOTE | 2023-10-12 09:01 | XR_ITS ---
WS: [id number] Portable AP semiupright chest, 10/12/2023, 0920 hours Clinical Data: et tube placement Comparison: Portable chest, 10/12/2023, 0723 hours Findings: The endotracheal tube ends above the shay. The right internal jugular venous catheter and nasogastric tube remain in the same position. Impression: Satisfactory placement of endotracheal tube.
[2023-10-12] MEDS: enoxaparin 100 mg/mL Syringe 90 MG SUBCUT ×2 (09:05→23:06)
[2023-10-12 09:14] LABS: Troponin 5 2HR 61.52 ng/L (0-15)
--- NOTE | 2023-10-12 09:14 | ECG_ITS ---
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 Measurements Intervals [place] Rate: 81 P: -7 AR: 322 QRS: 12 QRSD: 141 T: 133 QT: 432 QTc: 504 Interpretive Statements SINUS RHYTHM WITH FIRST DEGREE AV BLOCK LEFT BUNDLE BRANCH BLOCK [120+ ms QRS DURATION, 80+ ms Q/S IN V1/V2, 85+ ms R IN I/aVL/V5/V6] Compared to ECG 10/12/2023 06:27:09 No significant changes Electronically Signed On 10-12-2023 14:50:42 MINE SURVEYOR by Torres Zayas M.D. [id number]
[2023-10-12 09:28] LABS: Blood Urea Nitrogen 30 mg/dL (8-23); Calcium 7.6 mg/dL (8.5-10.5); Carbon Dioxide 20 mmol/L (22-29); Chloride 93 mmol/L (98-107); Creatinine Clr Calc Pharmacy 57.5244; Glucose 485 mg/dL (65-115); Osmolality Calculated 306 mOsm/kg (285-295); Sodium 134 mmol/L (136-145)
[2023-10-12 09:36] LABS: Lactate (Lactic Acid level) 4.3 mmol/L (0.5-2.2); Troponin 5 2HR Delta 32.52 ABS# (0-10)
[2023-10-12] MEDS: sodium bicarbonate 150 MEQ in dextrose 5% 1,000 ML IV (09:58)
[2023-10-12] MEDS: insulin regular-human 10 UNIT in SYRINGE 1 EACH IVP (10:01)
[2023-10-12] MEDS: propofol 1,000 MG/100 ML INJ 30.9400000000000013 MG IV ×3 (10:10→16:40)
[2023-10-12 10:58] LABS: ABG PCO2 31.6 mmHg (35-45); ABG PH Result 7.46 (7.35-7.45); Arterial Blood Gas Hematocrit 37.3 % (42-52); Base Excess ABG -0.6 mmol/L (-2.0-2.0); Blood Gas Allen Test Pos; Blood Gas Operator Identificat GD; Blood Gas Sample Site Brachial, right; Blood Gas Sample Type Arterial; HCO3 ABG 22.6 mmol/L (22-26); Oxygen Device VENT; PO2 ABG 80.7 mmHg (80.0-100.0); PO2 FiO2 Ratio Arterial Blood 0
--- NOTE | 2023-10-12 11:11 | P.PN_ITS ---
Subjective 2 Subjective: Overnight events noted Patient is intubated sedated ET tube size 8 at 20 cm I have added dobutamine for cardiogenic shock Currently is on amiodarone drip Noticed acidosis on ABG, likely lactic acid related which was supported by the BMP A friend visited him today I have tried to call the family It is going on voicemail for now Consulted Dr. Don Non-STEMI EKG showing A-fib with incomplete left bundle branch block Troponin without significant elevation Significant delta troponin currently patient is on therapeutic Lovenox Holding metoprolol for low blood pressure We will replenish calcium as well Vitals/I&O/Wt Last Vital Signs Temp 98.9 F 10/12/23 10:45 Pulse 92 10/12/23 10:45 Resp 15 10/12/23 10:08 BP 79/57 10/12/23 10:45 Pulse Ox 97 10/12/23 10:45 O2 Del Method Mechanical Ventilation 10/12/23 09:43 O2 Flow Rate 2 10/11/23 16:40 FiO2 35 10/12/23 10:08 10/11/23 10/12/23 10/12/23 22:59 06:59 14:59 Intake Total 882.85 / 882.85 100 / 982.85 Output Total 2550 / 2550 Balance 882.85 / 882.85 -2450 / -1567.15 Weight last 48 hrs Weight 85.956 kg Weight 86.772 kg Weight 88.451 kg Physical Exam 2 Narrative: Patient intubated and sedated ET tube size 8 at 20 cm at at the level of teeth Abdomen nondistended Lower extremity swelling FiO2 80% PEEP 6 Currently on amiodarone Propofol at 40 Amiodarone at 1 Levophed at 88 mics About 800 mL urine noted in the bag Urinary Catheter Management: Napoles: Cath Placed During This Visit: yes Reason for Continuing Indwelling Catheter: Accurate Measurement of Urinary Output in Critically Ill Patients Urinary Catheter Date of Insertion: 10/11/23 Urinary Catheter Time of Insertion: 17:30 Data 10/12/23 04:52 10/12/23 08:34 Micro: Microbiology 10/11/23 17:50 Blood Culture - Preliminary Blood SPECIMEN COLLECTED 10/11/23 17:55 Blood Culture - Preliminary Blood SPECIMEN COLLECTED A&P Assessment and plan (1) New onset of congestive heart failure: (2) Hx of CABG: (3) Ventricular fibrillation: (4) Atrial fibrillation with RVR: (5) COVID-19: (6) Sepsis: (7) Altered mental status: (8) Metabolic encephalopathy: (9) Acute respiratory failure with hypoxia: (10) Cardiac arrest: (11) Metabolic acidosis: (12) Hyperkalemia: (13) Septic shock: (14) Non-STEMI (non-ST elevated myocardial infarction): Plan Septic shock Not a candidate of septic bolus secondary to CHF exacerbation Source is COVID-19 Considering non-STEMI secondary to troponin, I would also consider cardiogenic shock in my differentials because of signal pulm edema evident on the x-ray Add dobutamine to Levophed Respiratory failure after cardiac arrest requiring mechanical ventilation Patient intubated on 10/11 ABG showing metabolic acidosis I have asked RT to decrease FiO2 from 80% Repeat ABG Non-STEMI Currently on therapeutic Lovenox Hold metoprolol Will add aspirin and Plavix via NG tube Patient carries history of CABG Cardiac arrest, V-fib Torsade? Echo ordered Magnesium is 2.2 Currently on amiodarone drip Cardiology consulted Hyperkalemia will give 10 units IV insulin Metabolic acidosis start bicarb drip which I will stop with next BMP if it is improving by 2:00pm Guarded prognosis Full code Try to get a hold of family, it is going to voicemail COVID-19: Continue Decadron and remdesivir N.p.o. Attestations 2 Medical Necessity Statement*: Critical, continue ICU management Coding Level of Care Code Critical Care >/= 30 minutes Critical care time (in minutes): 50 The high probability of a clinically significant, sudden or life threatening deterioration, as referenced in this documentation, required my full and direct attention, intervention and personal management. The critical care time shown is in addition to time spent performing any reported separately billable procedures and includes the following: [x] Data and vital sign review and interpretation [x ] Patient assessment, examination and intervention [x] Medication orders and management [x] Patient/Family updates as able [x] Care Coordination and Documentation. Diagnoses New onset of congestive heart failure I50.9 Hx of CABG Z95.1 Ventricular fibrillation I49.01 Atrial fibrillation with RVR I48.91 COVID-19 U07.1 Sepsis A41.9 Altered mental status R41.82 Metabolic encephalopathy G93.41 Acute respiratory failure with hypoxia J96.01 Cardiac arrest I46.9 Metabolic acidosis E87.20 Hyperkalemia E87.5 Septic shock A41.9; R65.21 Non-STEMI (non-ST elevated myocardial infarction) I21.4
[2023-10-12] MEDS: DOBUTamine drip 500 MG/250 ML PREMIX 12.8900000000000006 MG IV (11:40)
[2023-10-12] MEDS: piperacillin-tazobactam 3.375 GM in sodium chloride 0.9% (plus) 50 ML IV ×2 (12:36→20:10)
--- NOTE | 2023-10-12 13:14 | ECG_ITS ---
[facility] Test Date: 2023-10-12 Pat Name: Junior Everett Department: Room: ICU12 Gender: Male Document Coordinator: : 1940 Requested By: Barbie Webster Order Number: [id number] Arnol MD: Torres Zayas M.D. Measurements Intervals [place] Rate: 92 P: 0 VT: 0 QRS: 15 QRSD: 145 T: 156 QT: 439 QTc: 546 Interpretive Statements ATRIAL FIBRILLATION LEFT BUNDLE BRANCH BLOCK [120+ ms QRS DURATION, 80+ ms Q/S IN V1/V2, 85+ ms R IN I/aVL/V5/V6] Compared to ECG 10/12/2023 08:53:38 Sinus rhythm no longer present First degree AV block no longer present Electronically Signed On 10-12-2023 14:50:15 FORMSTONE FITTER by Torres Zayas M.D. [id number]
[2023-10-12] MEDS: insulin regular-human 250 UNIT in sodium chloride 0.9% 250 ML 8.08000000000000007 UNIT IV (13:17)
[2023-10-12 14:14] LABS: Glucose Point of Care 453 mg/dL (70-110)
[2023-10-12] MEDS: ipratropium-albuterol 3 mL Neb INHALATION ×2 (14:15→20:25)
[2023-10-12 14:25] LABS: Lactic Sepsis W/Reflex 3.3 mmol/L (0.5-2.2)
[2023-10-12 14:38] LABS: Troponin 5 6HR 131.8 ng/L (0-15); Troponin 5 6HR Delta 102.8 ng/L (0-12)
[2023-10-12 14:57] LABS: Anion Gap 21.6 (5-19); Blood Urea Nitrogen 33 mg/dL (8-23); Calcium 7.4 mg/dL (8.5-10.5); Carbon Dioxide 23 mmol/L (22-29); Chloride 92 mmol/L (98-107); Glucose 446 mg/dL (65-115); Osmolality Calculated 303 mOsm/kg (285-295); Potassium 3.6 mmol/L (3.5-5.1); Sodium 133 mmol/L (136-145)
[2023-10-12] MEDS: norepinephrine 4 MG/250 ML BAG 30 MG IV (15:26)
[2023-10-12 15:43] LABS: Reflex Lactate Order REFLEX LACTIC ORDERD
[2023-10-12 16:48] LABS: Glucose Point of Care 448 mg/dL (70-110)
[2023-10-12] MEDS: remdesivir 100 MG in sodium chloride 0.9% (100 ml) 80 ML IV (17:21)
[2023-10-12 17:51] LABS: Lactic Acid level (Lactate) 4.3 mmol/L (0.5-2.2)
--- NOTE | 2023-10-12 18:00 | PM.CCN ---
Critical Care Event Note Responded to CODE BLUE in ICU room 12. I was the first physician to arrive. Directed to code initially then Dr. Webster took over and manage the medical portion of the COVID intubated the patient with an 8 OT ET tube 22 cm at the gumline Dr. Webster continued management of the patient we had achieved ROSC by the time I left the room. Critical Care Time Code activated: Yes Critical Care Time (min): 15 Procedures Intubation Sedative: etomidate Mg given: 30 Paralytic: succinylcholine Mg given: 120 Laryngoscope: fiber optic video scope ET tube size: 8 ET tube uncuffed: No Tube secured depth (cm): 22 Tube secured location: teeth Tube placement confirmation: visualized tube passing through cords, equal breath sounds bilaterally, no breath sounds over epigastrium, confirmation by capnometry and color change noted Patient tolerated procedure: well Intubation complications: none Coding Level of Care Code Acute Code for Chg Fwd
[2023-10-12] MEDS: dextrose 5%-sod chloride 0.9% 1,000 ML 75 ML IV (20:10)
[2023-10-12] MEDS: norepinephrine 4 MG/250 ML BAG 60 MG IV (20:11)
[2023-10-12] MEDS: propofol 1,000 MG/100 ML INJ 28.370000000000001 MG IV (20:11)
[2023-10-12 20:31] LABS: Glucose Point of Care 197 mg/dL (70-110)
[2023-10-12 20:32] LABS: Glucose Point of Care 130 mg/dL (70-110)
[2023-10-12 21:13] LABS: Anion Gap 17.6 (5-19); Blood Urea Nitrogen 31 mg/dL (8-23); Carbon Dioxide 28 mmol/L (22-29); Chloride 95 mmol/L (98-107); Glucose 123 mg/dL (65-115); Osmolality Calculated 292 mOsm/kg (285-295); Potassium 3.6 mmol/L (3.5-5.1); Sodium 137 mmol/L (136-145)
[2023-10-12 21:15] LABS: Glucose Point of Care 130 mg/dL (70-110)
[2023-10-12 21:31] LABS: Calcium 7.6 mg/dL (8.5-10.5)
[2023-10-12] MEDS: fentaNYL 1,000 MCG/100 ML BAG 2.5 MCG IV (21:54)
[2023-10-12 22:05] LABS: Glucose Point of Care 113 mg/dL (70-110)
--- NOTE | 2023-10-12 23:03 | PC.NURSE ---
Sodium bicarbonate was stopped during dayshift. MAR was updated to reflect this.
--- NOTE | 2023-10-12 23:11 | PC.NURSE ---
Insulin drip: Patient's blood sugar was 130, Anion Gap was 17.6, and Carbon dioxide levels were 28. Dr. Webster was notified per Insulin drip protocol. Dr. Webster ordered for the insulin drip to be set at a fixed rate of 5 units per hour.
[2023-10-12 23:12] LABS: Glucose Point of Care 120 mg/dL (70-110)
[2023-10-13] VITALS (104 sets, daily range): BP systolic 73–145; BP diastolic 38–74; PULSE 60–115; RESP 12–15; TEMP 37.5–37.7; O2SAT 89–100
[2023-10-13 00:07] LABS: Anion Gap 16.2 (5-19); Blood Urea Nitrogen 31 mg/dL (8-23); Calcium 7.5 mg/dL (8.5-10.5); Carbon Dioxide 29 mmol/L (22-29); Chloride 94 mmol/L (98-107); Glucose 121 mg/dL (65-115); Osmolality Calculated 290 mOsm/kg (285-295); Potassium 3.2 mmol/L (3.5-5.1); Sodium 136 mmol/L (136-145)
[2023-10-13] MEDS: norepinephrine 4 MG/250 ML BAG 60 MG IV ×2 (00:16→23:56)
[2023-10-13] MEDS: propofol 1,000 MG/100 ML INJ 18.0500000000000007 MG IV (00:17)
[2023-10-13 01:03] LABS: Glucose Point of Care 113 mg/dL (70-110)
[2023-10-13] MEDS: lidocaine 1% 5 ML in potassium chloride premix 100 ML 25 ML IV ×2 (01:06→13:00)
[2023-10-13 02:03] LABS: Glucose Point of Care 147 mg/dL (70-110)
[2023-10-13 03:05] LABS: Glucose Point of Care 150 mg/dL (70-110)
[2023-10-13] MEDS: ipratropium-albuterol 3 mL Neb INHALATION ×4 (03:26→20:32)
[2023-10-13 03:59] LABS: Basophils % 0.1 %; Hematocrit 33.9 % (37-53); Lymphocytes # 0.6 10^3/uL (0.8-4.8); Mean Corpuscular Hemoglobin 31.7 pg (27-33); Mean Platelet Volume 9.4 fL (7.4-10.4); Monocytes # 0.2 10^3/uL (0.2-0.9); Monocytes % 2.2 %; Neutrophils # 9.18 10^3/uL (1.8-7.7); Nucleated Red Blood Cells % 0 %; Platelet Count 181 10^3/cmm (157-399); Red Blood Count 3.53 10^6/uL (3.85-5.65); White Blood Count 10.09 10^3/uL (3.29-11.43)
[2023-10-13] MEDS: norepinephrine 4 MG/250 ML BAG 75 MG IV ×5 (04:06→17:06)
[2023-10-13] MEDS: piperacillin-tazobactam 3.375 GM in sodium chloride 0.9% (plus) 50 ML IV ×3 (04:06→22:00)
[2023-10-13 04:25] LABS: ABG PCO2 39.2 mmHg (35-45); ABG PH Result 7.46 (7.35-7.45); Arterial Blood Gas Hematocrit 40.4 % (42-52); Base Excess ABG 3.4 mmol/L (-2.0-2.0); Blood Gas Allen Test Pos; Blood Gas Operator Identificat JB; Blood Gas Sample Site Radial, right; Blood Gas Sample Type Arterial; HCO3 ABG 27.5 mmol/L (22-26); Oxygen Device VENT; PO2 ABG 56.1 mmHg (80.0-100.0)
[2023-10-13 04:27] LABS: PO2 FiO2 Ratio Arterial Blood 0
[2023-10-13] MEDS: DOBUTamine drip 500 MG/250 ML PREMIX 51.5700000000000003 MG IV (04:31)
[2023-10-13 04:32] LABS: Anion Gap 17.3 (5-19); Blood Urea Nitrogen 29 mg/dL (8-23); Calcium 7.1 mg/dL (8.5-10.5); Carbon Dioxide 26 mmol/L (22-29); Chloride 93 mmol/L (98-107); Creatinine Clr Calc Pharmacy 41.0889; Glucose 174 mg/dL (65-115); Osmolality Calculated 286 mOsm/kg (285-295); Potassium 3.3 mmol/L (3.5-5.1); Sodium 133 mmol/L (136-145)
[2023-10-13] MEDS: vasopressin 40 UNIT/100 ML PREMIX IV (04:58)
[2023-10-13 05:58] LABS: Glucose Point of Care 150 mg/dL (70-110)
[2023-10-13 05:58] LABS: Glucose Point of Care 175 mg/dL (70-110)
[2023-10-13 08:06] LABS: Blood Urea Nitrogen 28 mg/dL (8-23); Calcium 6.8 mg/dL (8.5-10.5); Carbon Dioxide 21 mmol/L (22-29); Chloride 94 mmol/L (98-107); Creatinine Clr Calc Pharmacy 40.8516; Glucose 211 mg/dL (65-115); Osmolality Calculated 284 mOsm/kg (285-295); Sodium 131 mmol/L (136-145)
[2023-10-13 08:08] LABS: Anion Gap 19.6 (5-19); Potassium 3.6 mmol/L (3.5-5.1)
[2023-10-13] MEDS: propofol 1,000 MG/100 ML INJ 7.74000000000000021 MG IV (08:35)
[2023-10-13] MEDS: fentaNYL 1,000 MCG/100 ML BAG 12.5 MCG IV ×2 (08:48→13:54)
--- NOTE | 2023-10-13 09:11 | PC.NURSE ---
Dr. Escalante at bedside this AM, plan to stop dobutamine, start epi drip if bp stays low, stop insulin drip and monitor glucose
[2023-10-13] MEDS: sennosides-docusate Tablet 1 TAB PO (09:18)
[2023-10-13] MEDS: enoxaparin 100 mg/mL Syringe 90 MG SUBCUT ×2 (09:18→22:00)
[2023-10-13] MEDS: pantoprazole 40 mg SDV IVP ×2 (09:18→17:21)
[2023-10-13] MEDS: FUROsemide 10 mg/mL SDV 10mL 60 MG IVP (09:18)
--- NOTE | 2023-10-13 11:49 | P.PN_ITS ---
Subjective 2 Subjective: Patient is requiring 3 pressors I have asked nurse to discontinue dobutamine and continue Levophed along vasopressin Patient is showing A-fib with left bundle branch block wide QRS pattern Magnesium of 2 Will increase FiO2 to 50% No fever or leukocytosis Hypotensive Septic shock Potassium 3.6 Patient is not extremely acidotic Creatinine 1.4 Insulin drip has been turned off Vitals/I&O/Wt Last Vital Signs Temp 99.9 F H 10/13/23 04:44 Pulse 96 10/13/23 09:00 Resp 15 10/13/23 11:05 BP 91/62 10/13/23 09:00 Pulse Ox 100 10/13/23 11:05 O2 Del Method Mechanical Ventilation 10/13/23 08:24 O2 Flow Rate 2 10/11/23 16:40 FiO2 50 10/13/23 11:05 10/12/23 10/13/23 10/13/23 22:59 06:59 14:59 Intake Total 1155.215 / 0113.985 0296.160 / 2527.875 1885.430 / 1885.430 Output Total 1175 / 1175 400 / 1575 Balance -19.785 / 312.715 640.160 / 929.214 6385.430 / 1885.430 Weight last 48 hrs Weight 84.907 kg Weight 85.956 kg Weight 86.772 kg Weight 88.451 kg Physical Exam 2 Narrative: Patient is intubated and sedated Low-grade fever Hypertensive Septic shock No skin mottling Adequate urine output Abdomen soft Bilateral assisted breath sounds Neuroexam limited Napoles catheter in place No sign ischemic ulcers Right IJ central line in place Right groin no active bleeding Urinary Catheter Management: Napoles: Cath Placed During This Visit: yes Reason for Continuing Indwelling Catheter: Accurate Measurement of Urinary Output in Critically Ill Patients Urinary Catheter Date of Insertion: 10/11/23 Urinary Catheter Time of Insertion: 17:30 Data 10/13/23 03:48 10/13/23 07:36 Micro: Microbiology 10/11/23 17:50 Blood Culture - Preliminary Blood NEGATIVE TO DATE 10/11/23 17:55 Blood Culture - Preliminary Blood NEGATIVE TO DATE 10/12/23 09:20 Gram Stain - Final Sputum - Endotracheal Tube Aspirate A&P Assessment and plan (1) Hypotension: Qualifiers: Hypotension type: unspecified hypotension type Qualified Code(s): I95.9 - Hypotension, unspecified (2) New onset of congestive heart failure: (3) Non-STEMI (non-ST elevated myocardial infarction): (4) Hx of CABG: (5) Atrial fibrillation with RVR: (6) Ventricular fibrillation: (7) Cardiac arrest: (8) Metabolic acidosis: (9) Hyperkalemia: (10) COVID-19: (11) Septic shock: (12) Sepsis: (13) Altered mental status: Qualifiers: Altered mental status type: coma Coma depth: other Coma timing: at hospital admission Qualified Code(s): R40.2443 - Other coma, without documented [place] coma scale score, or with partial score reported, at hospital admission (14) Metabolic encephalopathy: (15) Acute respiratory failure with hypoxia: Plan Cardiac arrest related to V-fib Appreciate cardiology recommendations Continue amiodarone Goal potassium 4 magnesium of 2 Continue therapeutic Lovenox Respiratory failure requiring mechanical ventilation Patient intubated and sedated Septic shock Currently on 3 pressors I have asked nurse to discontinue dobutamine and continue Levophed along vasopressin, third agent if needed will be epinephrine for septic shock Low-grade fever Cultures negative COVID-19 related pneumonia [place]: Cardiorenal anticipate improvement with diuresis Metabolic encephalopathy: Related to COVID-19 and septic shock Patient is not ready to be weaned off however his FiO2 requirement is around 50% with PEEP of 6 He is currently requiring 2 pressors Blood pressure is still soft If his blood pressure stays with MAP above 70 we can wean off one of the vasopressors and then probably try weaning trial on Monday Guarded prognosis Non-STEMI Currently on therapeutic Lovenox Appreciate cardiology recommendations Echo showed mildly reduced EF AF with left bundle branch block: Wide QRS pattern on EKG and telemetry Continue amiodarone Guarded prognosis Today I have increased FiO2 to 50% Discontinue dobutamine Added potassium IV Attestations 2 Medical Necessity Statement*: Continue medical management Coding Level of Care Code Critical Care >/= 30 minutes Critical care time (in minutes): 40 The high probability of a clinically significant, sudden or life threatening deterioration, as referenced in this documentation, required my full and direct attention, intervention and personal management. The critical care time shown is in addition to time spent performing any reported separately billable procedures and includes the following: [x] Data and vital sign review and interpretation [x ] Patient assessment, examination and intervention [x] Medication orders and management [x] Patient/Family updates as able [x] Care Coordination and Documentation. Diagnoses Hypotension, unspecified hypotension type I95.9 Hypotension type: unspecified hypotension type New onset of congestive heart failure I50.9 Non-STEMI (non-ST elevated myocardial infarction) I21.4 Hx of CABG Z95.1 Atrial fibrillation with RVR I48.91 Ventricular fibrillation I49.01 Cardiac arrest I46.9 Metabolic acidosis E87.20 Hyperkalemia E87.5 COVID-19 U07.1 Septic shock A41.9; R65.21 Sepsis A41.9 Other coma depth, at hospital admission R40.2443 Altered mental status type: coma Coma depth: other Coma timing: at hospital admission Metabolic encephalopathy G93.41 Acute respiratory failure with hypoxia J96.01
--- NOTE | 2023-10-13 17:01 | PM.PN ---
Subjective Subjective: Patient remains intubated. Unresponsive to painful stimuli. On vasopressors. Telemetry shows sinus rhythm/tachycardia. FiO2 of 50%. Currently on vasopressin, Levophed and Dobutrex. Medications: Medication Review Details: Current Medications Acetaminophen (Acetaminophen 500 Mg Tablet) 500 mg PO Q4H PRN PRN Reason: fever Albuterol/Ipratropium (Ipratropium-Albuterol 3 Ml Neb) 3 ml INHALATION Q6H.RESP KRISTY Last Admin: 10/13/23 13:27 Dose: 3 ml Enoxaparin Sodium (Enoxaparin 100 Mg/Ml Syringe) 90 mg SUBCUT Q12H KRISTY Last Admin: 10/13/23 09:18 Dose: 90 mg Furosemide (Furosemide 10 Mg/Ml Sdv 10ml) 60 mg IVP DAILY KRISTY Last Admin: 10/13/23 09:18 Dose: 60 mg Remdesivir 100 mg/ Sodium (Chloride) 100 mls @ 100 mls/hr IV Q24H KRISTY Stop: 10/15/23 18:59 Last Admin: 10/12/23 17:21 Dose: 100 mls/hr Propofol (Diprivan) 1,000 mg in 100 mls @ 0 mls/hr IV .Q0M KRISTY; Protocol Last Admin: 10/13/23 08:35 Dose: 15 mcg/kg/min, 7.74 mls/hr Amiodarone HCl/Dextrose (Nexterone) 360 mg in 200 mls @ 0 mls/hr IV .Q0M KRISTY; Protocol Last Admin: 10/13/23 01:10 Dose: 0.5 mg/min, 16.67 mls/hr norepinephrine (Levophed) 4 mg in 250 mls @ 0 mls/hr IV .Q0M KRISTY; Protocol Last Admin: 10/13/23 13:09 Dose: 20 mcg/min, 75 mls/hr Fentanyl (Sublimaze) 1,000 mcg in 100 mls @ 0 mls/hr IV .Q0M KRISTY; Protocol Last Admin: 10/13/23 13:54 Dose: 125 mcg/hr, 12.5 mls/hr Dobutamine HCl/Dextrose (Dobutamine Drip) 500 mg in 250 mls @ 0 mls/hr IV .Q0M KRISTY; Protocol Last Titration: 10/13/23 09:14 Dose: 5 mcg/kg/min, 12.89 mls/hr Piperacillin Sod/Tazobactam (Sod 3.375 gm/ Sodium Chloride) 50 mls @ 12.5 mls/hr IV Q8H [facility]; Protocol Last Admin: 10/13/23 11:40 Dose: 12.5 mls/hr Magnesium Sulfate (Magnesium Sulfate Premix) 2 gm in 50 mls @ 50 mls/hr IV PRN PRN PRN Reason: HYPOMAGNESIUMIA Insulin Human Regular 250 unit (/ Sodium Chloride) 252.5 mls @ 0 mls/hr IV .Q0M [facility]; Protocol Last Titration: 10/13/23 09:12 Dose: 0 unit/hr, 0 mls/hr Potassium Phosphate 40 meq/ (Sodium Chloride) 108.5106 mls @ 27.273 mls/hr IV PRN PRN PRN Reason: hypophosphatemia Dextrose (D10w) 125 mls @ 750 mls/hr IV PRN PRN; Protocol PRN Reason: Adult DKA Hypoglycemia Nursing Protocol Dextrose (D10w) 250 mls @ 1,000 mls/hr IV PRN PRN; Protocol PRN Reason: Adult DKA Hypoglycemia Nursing Protocol Dextrose/Sodium Chloride (Dextrose 5%-Sod Chloride 0.9%) 1,000 mls @ 75 mls/hr IV .[id number] [facility] Last Infusion: 10/13/23 09:13 Dose: 0 mls/hr Vasopressin (Vasostrict) 40 unit in 100 mls @ 0 mls/hr IV .Q0M KRISTY; Protocol Last Titration: 10/13/23 14:33 Dose: 0.02 unit/min, 3 mls/hr Lidocaine HCl 5 ml/ Potassium (Chloride) 105 mls @ 25 mls/hr IV PRN PRN PRN Reason: hypokalemia Metoprolol Tartrate (Metoprolol Tartrate 25 Mg Tablet) 25 mg PO BID@0900,2100 [facility] Last Admin: 10/12/23 08:54 Dose: Not Given Ondansetron HCl (Ondansetron 2 Mg/Ml Sdv 2 Ml) 4 mg IVP Q6H PRN PRN Reason: NAUSEA AND VOMITING Pantoprazole Sodium (Pantoprazole 40 Mg Sdv) 40 mg IVP BID [facility] Last Admin: 10/13/23 09:18 Dose: 40 mg Senna/Docusate Sodium (Sennosides-Docusate Tablet) 1 tab PO DAILY KRISTY Last Admin: 10/13/23 09:18 Dose: 1 tab Vitals/I&O/Wt Last Vital Signs Temp 99.9 F H 10/13/23 04:44 Pulse 71 10/13/23 14:15 Resp 12 10/13/23 13:30 BP 121/65 10/13/23 14:15 Pulse Ox 100 10/13/23 14:15 O2 Del Method Mechanical Ventilation 10/13/23 13:27 O2 Flow Rate 2 10/11/23 16:40 FiO2 50 10/13/23 13:30 10/13/23 10/13/23 10/13/23 06:59 14:59 22:59 Intake Total 1040.160 / 2527.875 2264.855 / 2264.855 Output Total 400 / 1575 Balance 640.160 / 209.892 8885.855 / 2264.855 Weight last 48 hrs Weight 187 lb 3 oz Weight 189 lb 8 oz Weight 191 lb 4.8 oz Physical Exam Urinary Catheter Management: Napoles: Cath Placed During This Visit: yes Reason for Continuing Indwelling Catheter: Accurate Measurement of Urinary Output in Critically Ill Patients Urinary Catheter Date of Insertion: 10/11/23 Urinary Catheter Time of Insertion: 17:30 Data 10/13/23 03:48 10/13/23 07:36 Micro: Microbiology 10/12/23 09:20 Gram Stain - Final Sputum - Endotracheal Tube Aspirate Sputum Culture - Preliminary 10/11/23 17:50 Blood Culture - Preliminary Blood NEGATIVE TO DATE 10/11/23 17:55 Blood Culture - Preliminary Blood NEGATIVE TO DATE A&P Assessment and plan (1) Ventricular fibrillation: The exact etiology is not clear. Possibility of underlying coronary ischemia causing this is a consideration. Patient has not had a recurrence of the arrhythmia. He may be kept on the IV amiodarone for the time being. (2) Hypotension: The vasopressin was tapered off. Currently on Levophed of 20 mics per KG per minute and 10 mics of Dobutrex Qualifiers: Hypotension type: unspecified hypotension type Qualified Code(s): I95.9 - Hypotension, unspecified (3) Atherosclerotic heart disease of [place] coronary artery without angina pectoris: Patient has a history of four-vessel coronary bypass surgery. Possible Non ST lesion myocardial infarction. Patient is on Lovenox. Qualifiers: [place] vs. transplanted heart: [place] heart Qualified Code(s): I25.10 - Atherosclerotic heart disease of [place] coronary artery without angina pectoris (4) Metabolic encephalopathy: Currently remaining afebrile. (5) New onset of congestive heart failure: Coronary ischemia, LV dysfunction, systemic infection, etc. are contributing factors. Seems to be an intermittent heart failure (6) Atrial fibrillation with RVR: Patient is in intermittent atrial fibrillation (7) Acute respiratory failure with hypoxia: Patient has remained intubated. Currently is on FiO2 50%. Oxygen saturation are 98% Plan As per the family's request, patient is on limited code. Continue on the current measures for the time being Attestations Medical Necessity Statement*: Disposition as per the primary Coding Level of Care Code 47753 Diagnoses Ventricular fibrillation I49.01 Hypotension, unspecified hypotension type I95.9 Hypotension type: unspecified hypotension type Atherosclerosis of [place] coronary artery of [place] heart without angina pectoris I25.10 [place] vs. transplanted heart: [place] heart Metabolic encephalopathy G93.41 New onset of congestive heart failure I50.9 Atrial fibrillation with RVR I48.91 Acute respiratory failure with hypoxia J96.01
[2023-10-13] MEDS: remdesivir 100 MG in sodium chloride 0.9% (100 ml) 80 ML IV (17:21)
[2023-10-13] MEDS: norepinephrine 4 MG/250 ML BAG 67.5 MG IV (20:41)
[2023-10-13 22:11] LABS: Glucose Point of Care 443 mg/dL (70-110)
[2023-10-13] MEDS: fentaNYL 1,000 MCG/100 ML BAG 10 MCG IV (22:11)
[2023-10-13] MEDS: insulin lispro 100 unit/1 mL SUBCUT (23:49)
[2023-10-13] MEDS: propofol 1,000 MG/100 ML INJ 5.16000000000000014 MG IV (23:55)
--- NOTE | 2023-10-13 23:57 | PC.NURSE ---
AT the beginning of this nurse's shift dobutamnne and amiodarone drips were both paused. MAR was updated to reflect this.
[2023-10-14] VITALS (107 sets, daily range): BP systolic 80–132; BP diastolic 52–80; PULSE 59–101; RESP 12–18; TEMP 36.6–37.2; O2SAT 87–100
[2023-10-14] MEDS: ipratropium-albuterol 3 mL Neb INHALATION ×4 (02:44→19:45)
[2023-10-14 04:29] LABS: Basophils % 0.1 %; Eosinophils % 0.1 %; Hematocrit 33.2 % (37-53); Lymphocytes # 0.9 10^3/uL (0.8-4.8); Lymphocytes % 9.2 %; Mean Corpuscular HGB Conc 33.1 g/dL (30-55); Mean Corpuscular Hemoglobin 32.1 pg (27-33); Mean Corpuscular Volume 96.8 fl (82-101); Monocytes # 0.5 10^3/uL (0.2-0.9); Monocytes % 5.1 %; Neutrophils # 8.01 10^3/uL (1.8-7.7); Neutrophils % 84.8 %; Nucleated Red Blood Cells % 0.2 %; Platelet Count 245 10^3/cmm (157-399); Red Blood Count 3.43 10^6/uL (3.85-5.65); Red Cell Distribution Width 13.6 % (12.1-15.1); White Blood Count 9.45 10^3/uL (3.29-11.43)
[2023-10-14 04:38] LABS: ABG PCO2 45.6 mmHg (35-45); ABG PH Result 7.38 (7.35-7.45); Arterial Blood Gas Hematocrit 34.6 % (42-52); Base Excess ABG 1.4 mmol/L (-2.0-2.0); Blood Gas Allen Test Pos; Blood Gas Sample Site Radial, right; Blood Gas Sample Type Arterial; HCO3 ABG 26.9 mmol/L (22-26); Oxygen Device VENT; PO2 FiO2 Ratio Arterial Blood 0
[2023-10-14 04:49] LABS: Alanine Aminotransferase 120 U/L (0-41); Albumin Level 2.5 g/dL (3.5-5.2); Alkaline Phosphatase 78 U/L (40-130); Anion Gap 14.7 (5-19); Aspartate Amino Transferase 78 U/L (0-40); Blood Urea Nitrogen 33 mg/dL (8-23); Calcium 7.3 mg/dL (8.5-10.5); Carbon Dioxide 27 mmol/L (22-29); Chloride 89 mmol/L (98-107); Creatinine Clr Calc Pharmacy 35.7451; Globulin 2.9 g/dL (1.3-4.6); Glucose 441 mg/dL (65-115); Osmolality Calculated 288 mOsm/kg (285-295); Potassium 4.7 mmol/L (3.5-5.1); Sodium 126 mmol/L (136-145); Total Bilirubin 0.7 mg/dL (0.15-1.2); Total Protein 5.4 g/dL (6.6-8.7)
[2023-10-14] MEDS: piperacillin-tazobactam 3.375 GM in sodium chloride 0.9% (plus) 50 ML IV ×3 (05:06→19:25)
[2023-10-14] MEDS: norepinephrine 4 MG/250 ML BAG 30 MG IV (05:10)
[2023-10-14] MEDS: insulin lispro 100 unit/1 mL SUBCUT ×2 (05:17→22:10)
[2023-10-14 05:18] LABS: Glucose Point of Care 389 mg/dL (70-110)
[2023-10-14] MEDS: fentaNYL 1,000 MCG/100 ML BAG 125 MCG IV (05:54)
[2023-10-14] MEDS: propofol 1,000 MG/100 ML INJ 5.16000000000000014 MG IV (05:56)
[2023-10-14 06:01] LABS: Glucose Point of Care 476 mg/dL (70-110)
[2023-10-14 07:32] LABS: Glucose Point of Care 406 mg/dL (70-110)
--- NOTE | 2023-10-14 08:03 | P.PN_ITS ---
Subjective 2 Subjective: Rony is essentially unchanged. He was admitted a couple of days ago respiratory distress and change in his mental status. He was found to be in heart failure. He has underlying coronary disease and had bypass surgery several years ago. He chose to stop seeing physicians after that and stopped most of his medications. He had been placed in the intensive care unit for management of his underlying medical problems when very early in the morning 2 days ago he suffered a cardiopulmonary arrest. He underwent CPR for a short time with standard ACLS protocol. He was intubated. Since then he has been unresponsive and there is a fear of brain . I spoke to the nurse this morning who said that the night nurse told him that the patient may have followed a command last evening. He is on propofol, fentanyl and norepinephrine. This morning I get no response from the patient. The propofol is slowly being weaned. His white blood cell count has been stable. His creatinine is up to 1.6. His first troponin was 29 but then after the cardiopulmonary arrest and CPR it went up to 131. His EKGs have been unchanged. His other medical problems include ill-defined dementia, stroke, dyslipidemia, diabetes, hypertension and peripheral arterial disease. Vitals/I&O/Wt Last Vital Signs Temp 98.9 F 10/14/23 00:30 Pulse 75 10/14/23 06:15 Resp 12 10/14/23 04:00 BP 115/60 10/14/23 06:15 Pulse Ox 100 10/14/23 06:15 O2 Del Method Mechanical Ventilation 10/14/23 06:15 O2 Flow Rate 2 10/11/23 16:40 FiO2 50 10/14/23 04:00 10/13/23 10/14/23 10/14/23 22:59 06:59 14:59 Intake Total 944.475 / 3209.330 644.671 / 3854.001 Output Total 1200 / 1200 700 / 1900 Balance -255.525 / 2009.330 -55.329 / 1954.001 Weight last 48 hrs Weight 186 lb 2 oz Weight 187 lb 3 oz Physical Exam 2 Narrative: GENERAL: Intubated HEENT: Exam within normal limits. NECK: Supple without jugular vein distention. The carotid upstroke is normal without bruits. BACK: Exam normal. LUNGS: Clear. HEART: Regular rate and rhythm. ABDOMEN: Benign without organomegaly or tenderness. EXTREMITIES: No edema. NEUROLOGIC: Comatose SKIN: Unremarkable. Urinary Catheter Management: Napoles: Cath Placed During This Visit: yes Reason for Continuing Indwelling Catheter: Accurate Measurement of Urinary Output in Critically Ill Patients Urinary Catheter Date of Insertion: 10/11/23 Urinary Catheter Time of Insertion: 17:30 Data 10/14/23 03:59 10/14/23 03:59 Micro: Microbiology 10/12/23 09:20 Gram Stain - Final Sputum - Endotracheal Tube Aspirate Sputum Culture - Preliminary A&P Assessment and plan (1) Hypertension: Qualifiers: Hypertension type: primary hypertension Qualified Code(s): I10 - Essential (primary) hypertension (2) Hx of CABG: (3) Hyperlipidemia: Qualifiers: Hyperlipidemia type: pure hypercholesterolemia Qualified Code(s): E 78.00 - Pure hypercholesterolemia, unspecified (4) New onset of congestive heart failure: (5) Atrial fibrillation with RVR: (6) Ventricular fibrillation: (7) Atherosclerotic heart disease of [place] coronary artery without angina pectoris: Qualifiers: [place] vs. transplanted heart: [place] heart Qualified Code(s): I25.10 - Atherosclerotic heart disease of [place] coronary artery without angina pectoris (8) Cardiac arrest: (9) Hypotension: Qualifiers: Hypotension type: unspecified hypotension type Qualified Code(s): I95.9 - Hypotension, unspecified (10) Metabolic acidosis: (11) Hyperkalemia: (12) Metabolic encephalopathy: Plan We need to wean anything that we will sedate him down and off. We need to get some handle on his central nervous system before moving forward. No family in the room this morning. Attestations 2 Medical Necessity Statement*: Continued hospitalization for management of heart failure and cardiopulmonary arrest. and High Time for a total of 60 minutes, includes reviewing past or interval history, examining/interviewing patient, discussing plan of care with staff, communicating with other healthcare providers and documenting encounter Diagnoses Primary hypertension I10 Hypertension type: primary hypertension Hx of CABG Z95.1 Pure hypercholesterolemia E78.00 Hyperlipidemia type: pure hypercholesterolemia New onset of congestive heart failure I50.9 Atrial fibrillation with RVR I48.91 Ventricular fibrillation I49.01 Atherosclerosis of [place] coronary artery of [place] heart without angina pectoris I25.10 [place] vs. transplanted heart: [place] heart Cardiac arrest I46.9 Hypotension, unspecified hypotension type I95.9 Hypotension type: unspecified hypotension type Metabolic acidosis E87.20 Hyperkalemia E87.5 Metabolic encephalopathy G93.41
--- NOTE | 2023-10-14 08:11 | PM.PN ---
Subjective Subjective: Rony somewhat improved today. He is off the BiPAP sitting in a chair eating breakfast. He can carry on a conversation this morning where he was unable to do so yesterday due to his COPD. He states that he still quite short of breath but if forced, he could lie flat. Vitals/I&O/Wt Last Vital Signs Temp 98.9 F 10/14/23 00:30 Pulse 75 10/14/23 06:15 Resp 12 10/14/23 04:00 BP 115/60 10/14/23 06:15 Pulse Ox 100 10/14/23 06:15 O2 Del Method Mechanical Ventilation 10/14/23 06:15 O2 Flow Rate 2 10/11/23 16:40 FiO2 50 10/14/23 04:00 10/13/23 10/14/23 10/14/23 22:59 06:59 14:59 Intake Total 944.475 / 3209.330 644.671 / 3854.001 Output Total 1200 / 1200 700 / 1900 Balance -255.525 / 2009.330 -55.329 / 1954.001 Weight last 48 hrs Weight 186 lb 2 oz Weight 187 lb 3 oz Physical Exam Narrative: GENERAL: In general he is short of breath but less so than yesterday HEENT: Exam within normal limits. NECK: Supple without jugular vein distention. The carotid upstroke is normal without bruits. BACK: Exam normal. LUNGS: Decreased breath sounds bilaterally. Occasional scattered wheezes. Prolonged expiratory phase. HEART: Regular rate and rhythm. ABDOMEN: Benign without organomegaly or tenderness. EXTREMITIES: No edema. NEUROLOGIC: Exam normal. SKIN: Unremarkable. Urinary Catheter Management: Napoles: Cath Placed During This Visit: yes Reason for Continuing Indwelling Catheter: Accurate Measurement of Urinary Output in Critically Ill Patients Urinary Catheter Date of Insertion: 10/11/23 Urinary Catheter Time of Insertion: 17:30 Data 10/14/23 03:59 10/14/23 03:59 Micro: Microbiology 10/12/23 09:20 Gram Stain - Final Sputum - Endotracheal Tube Aspirate Sputum Culture - Preliminary A&P Assessment and plan Plan He is improved from yesterday. Still probably not well enough to undergo angiography. We will continue to treat him and I will reassess with him tomorrow whether he would be a candidate for angiography. The difficulty will be even if he maintains a low ejection fraction will he be a candidate for a defibrillator. 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 His blood pressures have been quite soft and so far we have been unable to add afterload reducing agents and/or beta-blockers. His blood pressure today is improved slightly so we may add some medical therapy. Coding Level of Care Code Acute Code for Geoff Vidales
[2023-10-14] MEDS: fentaNYL 1,000 MCG/100 ML BAG 10 MCG IV (09:07)
--- NOTE | 2023-10-14 09:09 | PC.NURSE ---
Addendum entered by Chata Farr RN 10/14/23 11:02: witnessed waste of 45ml of fentanyl with Simba HARDY. Original Note: OCT shows fentanyl bag infused at 0700 when bag from previous shift wasnt empty, flow sheet showed running at 1250 mcg/hr when rate was 120 mcg/hr at shift change. unable to titrate bag on oct. 45 ml fentanyl wasted. Rx notified
[2023-10-14] MEDS: pantoprazole 40 mg SDV IVP ×2 (09:23→17:33)
[2023-10-14] MEDS: FUROsemide 10 mg/mL SDV 10mL 60 MG IVP (09:23)
[2023-10-14] MEDS: insulin regular-human 250 UNIT in sodium chloride 0.9% 250 ML 8.08000000000000007 UNIT IV (09:23)
[2023-10-14] MEDS: sennosides-docusate Tablet 1 TAB PO (09:23)
[2023-10-14] MEDS: enoxaparin 100 mg/mL Syringe 90 MG SUBCUT ×2 (09:23→22:10)
--- NOTE | 2023-10-14 10:14 | P.PN_ITS ---
Subjective 2 Subjective: Showing signs of improvement Only requiring Levophed at 8 mics Turn FiO2 down to 30 to 35% Will do sedation vacation to assess cognitive function Afebrile MAP above 65 Will switch amiodarone to p.o. regimen Start insulin drip for persistent hyperglycemia Would not use sliding scale Vitals/I&O/Wt Last Vital Signs Temp 98.9 F 10/14/23 00:30 Pulse 81 10/14/23 09:45 Resp 12 10/14/23 09:31 BP 98/56 10/14/23 09:45 Pulse Ox 99 10/14/23 09:45 O2 Del Method Mechanical Ventilation 10/14/23 07:50 O2 Flow Rate 2 10/11/23 16:40 FiO2 35 10/14/23 09:31 10/13/23 10/14/23 10/14/23 22:59 06:59 14:59 Intake Total 944.475 / 3209.330 644.671 / 3854.001 187.532 / 187.532 Output Total 1200 / 1200 700 / 1900 Balance -255.525 / 2009.330 -55.329 / 1954.001 187.532 / 187.532 Weight last 48 hrs Weight 84.425 kg Weight 84.907 kg Physical Exam 2 Narrative: Patient intubated sedated Hyperglycemia Currently on Levophed Signs of fluid overload improving Abdomen nondistended Neuro exam limited Endotracheal tube size 8 FiO2 30 to 35% Napoles catheter in place Urinary Catheter Management: Napoles: Cath Placed During This Visit: yes Reason for Continuing Indwelling Catheter: Accurate Measurement of Urinary Output in Critically Ill Patients Urinary Catheter Date of Insertion: 10/11/23 Urinary Catheter Time of Insertion: 17:30 Data 10/14/23 03:59 10/14/23 03:59 Micro: Microbiology 10/12/23 09:20 Gram Stain - Final Sputum - Endotracheal Tube Aspirate Sputum Culture - Preliminary A&P Assessment and plan (1) Metabolic acidosis: (2) Hyperkalemia: (3) COVID-19: (4) Sepsis: (5) Septic shock: (6) Altered mental status: Qualifiers: Altered mental status type: coma Coma depth: other Coma timing: at hospital admission Qualified Code(s): R40.2443 - Other coma, without documented [place] coma scale score, or with partial score reported, at hospital admission (7) Metabolic encephalopathy: (8) Acute respiratory failure with hypoxia: (9) New onset of congestive heart failure: (10) Non-STEMI (non-ST elevated myocardial infarction): (11) Hx of CABG: (12) Atrial fibrillation with RVR: (13) Ventricular fibrillation: (14) Hyperlipidemia: Qualifiers: Hyperlipidemia type: pure hypercholesterolemia Qualified Code(s): E 78.00 - Pure hypercholesterolemia, unspecified (15) Cardiac arrest: Plan Cardiac arrest related to V-fib No recurrence A-fib with left bundle branch block Discontinue amiodarone and switch to p.o. regimen Keep potassium above 4 and magnesium of 2 Rester failure require mechanical ventilation Minimal ventilator settings PEEP is low FiO2 35% Sedation location today Discontinue IV amiodarone switch to p.o. regimen Persistent hyperglycemia Hemoglobin A1c is below 7 Start insulin drip to keep blood sugar between 140s to 180, keep less than 200 mg/dL I would not do sliding scale Metabolic acidosis: Resolved Septic shock: Requiring 8 mics of Levophed [place]: Cardiorenal: Creatinine 1.6 Will do gentle fluid hydration Guarded prognosis Weaning trial to assess cognitive function Continue ICU management DNR/DNI Hyponatremia: Noted Will repeat BMP Attestations 2 Medical Necessity Statement*: Continue ICU management Coding Level of Care Code Critical Care >/= 30 minutes Critical care time (in minutes): 35 The high probability of a clinically significant, sudden or life threatening deterioration, as referenced in this documentation, required my full and direct attention, intervention and personal management. The critical care time shown is in addition to time spent performing any reported separately billable procedures and includes the following: [x] Data and vital sign review and interpretation [x ] Patient assessment, examination and intervention [x] Medication orders and management [x] Patient/Family updates as able [x] Care Coordination and Documentation. Diagnoses Metabolic acidosis E87.20 Hyperkalemia E87.5 COVID-19 U07.1 Sepsis A41.9 Septic shock A41.9; R65.21 Other coma depth, at hospital admission R40.2443 Altered mental status type: coma Coma depth: other Coma timing: at hospital admission Metabolic encephalopathy G93.41 Acute respiratory failure with hypoxia J96.01 New onset of congestive heart failure I50.9 Non-STEMI (non-ST elevated myocardial infarction) I21.4 Hx of CABG Z95.1 Atrial fibrillation with RVR I48.91 Ventricular fibrillation I49.01 Pure hypercholesterolemia E78.00 Hyperlipidemia type: pure hypercholesterolemia Cardiac arrest I46.9
[2023-10-14 14:36] LABS: Glucose Point of Care 283 mg/dL (70-110)
[2023-10-14 14:36] LABS: Glucose Point of Care 66 mg/dL (70-110)
[2023-10-14] MEDS: dextrose 10% 125 ML 750 ML IV (14:36)
[2023-10-14 15:32] LABS: Methicillin-Resist S.aureu PCR NOT DETECTED (NOT DETECTED)
[2023-10-14 15:35] LABS: Glucose Point of Care 79 mg/dL (70-110)
[2023-10-14 17:01] LABS: Glucose Point of Care 107 mg/dL (70-110)
[2023-10-14] MEDS: remdesivir 100 MG in sodium chloride 0.9% (100 ml) 80 ML IV (17:33)
[2023-10-14] MEDS: amiodarone 200 mg Tablet 400 MG PO (17:33)
[2023-10-14] MEDS: norepinephrine 4 MG/250 ML BAG 7.5 MG IV (17:34)
[2023-10-14 20:17] LABS: Glucose Point of Care 170 mg/dL (70-110)
[2023-10-14 22:04] LABS: Glucose Point of Care 198 mg/dL (70-110)
[2023-10-14] MEDS: chlorhexidine gluconate 4% Btl 118 mL 1 APPLIC TOPICAL (22:10)
[2023-10-15] VITALS (63 sets, daily range): BP systolic 89–153; BP diastolic 55–123; PULSE 66–101; RESP 12–30; TEMP 36.6–37.4; O2SAT 93–100; BMI 29.7
[2023-10-15] MEDS: fentaNYL 1,000 MCG/100 ML BAG 7.5 MCG IV (01:10)
[2023-10-15] MEDS: ipratropium-albuterol 3 mL Neb INHALATION ×4 (03:18→20:44)
[2023-10-15 04:29] LABS: Glucose Point of Care 203 mg/dL (70-110)
[2023-10-15] MEDS: insulin lispro 100 unit/1 mL SUBCUT ×4 (04:32→22:07)
[2023-10-15] MEDS: piperacillin-tazobactam 3.375 GM in sodium chloride 0.9% (plus) 50 ML IV ×3 (04:32→20:22)
[2023-10-15 04:40] LABS: ABG PCO2 42.9 mmHg (35-45); ABG PH Result 7.43 (7.35-7.45); Arterial Blood Gas Hematocrit 33.3 % (42-52); Base Excess ABG 3.3 mmol/L (-2.0-2.0); Blood Gas Allen Test Pos; Blood Gas Sample Site Radial, right; Blood Gas Sample Type Arterial; HCO3 ABG 28.1 mmol/L (22-26); Oxygen Device VENT; PO2 ABG 85.8 mmHg (80.0-100.0); PO2 FiO2 Ratio Arterial Blood 0
[2023-10-15 05:20] LABS: Basophils % 0.1 %; Eosinophils % 0.1 %; Hematocrit 33.6 % (37-53); Lymphocytes # 0.8 10^3/uL (0.8-4.8); Lymphocytes % 11.1 %; Mean Corpuscular HGB Conc 33.3 g/dL (30-55); Mean Corpuscular Hemoglobin 32.3 pg (27-33); Mean Corpuscular Volume 96.8 fl (82-101); Mean Platelet Volume 10.1 fL (7.4-10.4); Monocytes # 0.3 10^3/uL (0.2-0.9); Monocytes % 4.9 %; Neutrophils # 5.61 10^3/uL (1.8-7.7); Neutrophils % 83.2 %; Nucleated Red Blood Cells % 0 %; Platelet Count 177 10^3/cmm (157-399); Red Blood Count 3.47 10^6/uL (3.85-5.65); Red Cell Distribution Width 13.5 % (12.1-15.1); White Blood Count 6.75 10^3/uL (3.29-11.43)
[2023-10-15 05:51] LABS: Anion Gap 15.3 (5-19); Blood Urea Nitrogen 41 mg/dL (8-23); Calcium 7.6 mg/dL (8.5-10.5); Carbon Dioxide 27 mmol/L (22-29); Chloride 96 mmol/L (98-107); Creatinine Clr Calc Pharmacy 40.7426; Glucose 182 mg/dL (65-115); Osmolality Calculated 293 mOsm/kg (285-295); Potassium 4.3 mmol/L (3.5-5.1); Sodium 134 mmol/L (136-145)
[2023-10-15 05:56] LABS: Creatine Phosphokinase 467 U/L (39-308)
--- NOTE | 2023-10-15 08:07 | P.PN_ITS ---
Subjective 2 Subjective: According to the nurses, the patient opens his eyes and looks around but has no meaningful motion. He does not respond to any command or painful stimuli. I could not elicit any response from him this morning. Vitals/I&O/Wt Last Vital Signs Temp 98.1 F 10/15/23 04:30 Pulse 85 10/15/23 06:15 Resp 18 10/15/23 04:30 BP 99/63 10/15/23 06:15 Pulse Ox 100 10/15/23 06:15 O2 Del Method Mechanical Ventilation 10/15/23 06:15 O2 Flow Rate 2 10/11/23 16:40 FiO2 30 10/15/23 06:15 10/14/23 10/15/23 10/15/23 21:59 06:59 14:59 Intake Total Output Total Balance Weight last 48 hrs Weight 184 lb Weight 186 lb 2 oz Physical Exam 2 Narrative: GENERAL: In general he appears to be comatose on the ventilator. HEENT: Exam within normal limits. NECK: Supple without jugular vein distention. The carotid upstroke is normal without bruits. BACK: Exam normal. LUNGS: Clear. HEART: Regular rate and rhythm. ABDOMEN: Benign without organomegaly or tenderness. EXTREMITIES: No edema. NEUROLOGIC: Coma SKIN: Unremarkable. Urinary Catheter Management: Napoles: Cath Placed During This Visit: yes Reason for Continuing Indwelling Catheter: Accurate Measurement of Urinary Output in Critically Ill Patients Urinary Catheter Date of Insertion: 10/11/23 Urinary Catheter Time of Insertion: 17:30 Data 10/15/23 04:50 10/15/23 04:50 Micro: Microbiology 10/12/23 09:20 Gram Stain - Final Sputum - Endotracheal Tube Aspirate Sputum Culture - Final A&P Assessment and plan (1) Hypertension: Qualifiers: Hypertension type: primary hypertension Qualified Code(s): I10 - Essential (primary) hypertension (2) Hx of CABG: (3) Hyperlipidemia: Qualifiers: Hyperlipidemia type: pure hypercholesterolemia Qualified Code(s): E 78.00 - Pure hypercholesterolemia, unspecified (4) New onset of congestive heart failure: (5) Atrial fibrillation with RVR: (6) Ventricular fibrillation: (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 There are no family members around at this time. We will follow at a distance. Attestations 2 Medical Necessity Statement*: Hospitalization for management of heart failure and cardiac arrest. Coding Level of Care Code Acute Code for g Fwd Diagnoses Primary hypertension I10 Hypertension type: primary hypertension Hx of CABG Z95.1 Pure hypercholesterolemia E78.00 Hyperlipidemia type: pure hypercholesterolemia New onset of congestive heart failure I50.9 Atrial fibrillation with RVR I48.91 Ventricular fibrillation I49.01 Atherosclerosis of [place] coronary artery of [place] heart without angina pectoris I25.10 [place] vs. transplanted heart: [place] heart Cardiac arrest I46.9 Non-STEMI (non-ST elevated myocardial infarction) I21.4 Hypotension, unspecified hypotension type I95.9 Hypotension type: unspecified hypotension type Acute respiratory failure with hypoxia J96.01 Anoxic encephalopathy G93.1
[2023-10-15] MEDS: pantoprazole 40 mg SDV IVP ×2 (08:14→17:49)
[2023-10-15] MEDS: amiodarone 200 mg Tablet 400 MG PO (08:15)
[2023-10-15] MEDS: FUROsemide 10 mg/mL SDV 10mL 60 MG IVP (08:15)
[2023-10-15] MEDS: sennosides-docusate Tablet 1 TAB PO (08:15)
[2023-10-15 09:52] LABS: Glucose Point of Care 176 mg/dL (70-110)
--- NOTE | 2023-10-15 11:58 | P.PN_ITS ---
Subjective 2 Subjective: Patient is morning is able to follow some commands He was able to blink his eyes on command Not able to move his arms or legs yet Nonpurposeful movements of lower extremities noted Afebrile Off Levophed Off sedation Sedation was turned off around 5 AM Family at the bedside I did tell them that we are waiting for him to respond a little better before making decision to extubate and do a weaning trial If he is not able to follow commands we will not be able to extubate him today They are agreeable with this plan Patient is DNR/DNI He has been afebrile Not requiring Levophed Adequate urine output No leukocytosis ABG showed good oxygenation, FiO2 30% Creatinine stable at 1.4 Vitals/I&O/Wt Last Vital Signs Temp 98.2 F 10/15/23 08:00 Pulse 84 10/15/23 08:30 Resp 14 10/15/23 11:17 BP 106/76 10/15/23 08:30 Pulse Ox 99 10/15/23 11:17 O2 Del Method Mechanical Ventilation 10/15/23 08:00 O2 Flow Rate 2 10/11/23 16:40 FiO2 30 10/15/23 11:17 10/14/23 10/15/23 10/15/23 21:59 06:59 14:59 Intake Total 37.875 / 37.875 Output Total Balance 37.875 / 37.875 Weight last 48 hrs Weight 83.461 kg Weight 84.425 kg Physical Exam 2 Narrative: Patient able to follow some commands Off sedation Intubated Off pressors Mild signs of fluid overload Napoles catheter in place Abdomen soft No audible stridor or wheezing Urinary Catheter Management: Napoles: Cath Placed During This Visit: yes Reason for Continuing Indwelling Catheter: Accurate Measurement of Urinary Output in Critically Ill Patients Urinary Catheter Date of Insertion: 10/11/23 Urinary Catheter Time of Insertion: 17:30 Data 10/15/23 04:50 10/15/23 04:50 Micro: Microbiology 10/12/23 09:20 Gram Stain - Final Sputum - Endotracheal Tube Aspirate Sputum Culture - Final A&P Assessment and plan (1) New onset of congestive heart failure: (2) Non-STEMI (non-ST elevated myocardial infarction): (3) Hx of CABG: (4) Atrial fibrillation with RVR: (5) Ventricular fibrillation: (6) Cardiac arrest: (7) Hyperlipidemia: Qualifiers: Hyperlipidemia type: pure hypercholesterolemia Qualified Code(s): E 78.00 - Pure hypercholesterolemia, unspecified (8) Metabolic acidosis: (9) Hyperkalemia: (10) COVID-19: (11) Sepsis: (12) Septic shock: (13) Altered mental status: Qualifiers: Altered mental status type: coma Coma depth: other Coma timing: at hospital admission Qualified Code(s): R40.2443 - Other coma, without documented [place] coma scale score, or with partial score reported, at hospital admission (14) Metabolic encephalopathy: (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: (16) Acute respiratory failure with hypoxia: Plan 83 male who was recently discharged from [facility] 2 days ago before his admission to the hospital for management & evaluation of respiratory distress, he was diagnosed with acute hypoxic hypercarbic respiratory failure, new onset CHF, non-STEMI, he was put on BiPAP at the time of admission, and next 12 hours patient had wide QRS rhythm, he lost pulse CODE BLUE was called after 2 rounds of epi ROSC was obtained there was concern for V-fib however he does have A-fib with left bundle branch block, his troponins were not remarkably high, echo showed mildly reduced EF, he was admitted as septic shock to the ICU, required Levophed along dobutamine and vasopressin at some point which was gradually weaned off, for his A-fib he was put on amiodarone drip which we have discontinued on 10/14, transition to p.o. regimen, please note his A1c is below 7 however his blood sugar was above 400 with high anion gap I started insulin drip which improved his metabolic acidosis and hyperglycemia. He was given bicarb drip on admission which was running through D5, I have discontinued bicarb drip as well, off sedation 10/14 since 5 AM, able to follow some commands Cardiac arrest related to severe sepsis Concern for V-fib Weaning trial once he is able to follow command Patient is blinking his eyes on verbal command Off sedation since 5 AM If extubated will request another evaluation from cardiology whether they would opt for stress test versus angiogram I do believe his wide QRS rhythm was related to A-fib with left bundle branch block I have switched his IV amiodarone to p.o. regimen Mildly reduced EF V-fib:? Will discuss with cardiology if patient would benefit from an AICD however I do believe it was A-fib with left bundle branch block showing wide QRS Systolic CHF exacerbation Continue diuresis Patient cardiology recommendations [place]: Cardiorenal Continue diuresis COVID-19 related pneumonia Continue antibiotics Afebrile this morning Respiratory failure secondary to hypoxic hypercarbic respite failure Plan to extubate in next 24 hours FiO2 30% Minimal vent settings Patient has been n.p.o. since admission His blood sugar has been running high Hyperglycemia improved with insulin drip Once extubated will do speech therapy Patient will need PT OT and ST If we are able to extubate him he will most likely need care home placement Family will decide if they want short-term versus long-term placement Metabolic acidosis: Resolved Hyperkalemia: Resolved Patient carries history of CABG Prognosis will be further assessed after neuro cognition evaluation Goals of care changed from full code to DNR/DNI after reviewing advance directives and medical DPOA documentation Attestations 2 Medical Necessity Statement*: Continue ICU management Coding Level of Care Code Critical Care >/= 30 minutes Critical care time (in minutes): 35 The high probability of a clinically significant, sudden or life threatening deterioration, as referenced in this documentation, required my full and direct attention, intervention and personal management. The critical care time shown is in addition to time spent performing any reported separately billable procedures and includes the following: [x] Data and vital sign review and interpretation [x ] Patient assessment, examination and intervention [x] Medication orders and management [x] Patient/Family updates as able [x] Care Coordination and Documentation. Diagnoses New onset of congestive heart failure I50.9 Non-STEMI (non-ST elevated myocardial infarction) I21.4 Hx of CABG Z95.1 Atrial fibrillation with RVR I48.91 Ventricular fibrillation I49.01 Cardiac arrest I46.9 Pure hypercholesterolemia E78.00 Hyperlipidemia type: pure hypercholesterolemia Metabolic acidosis E87.20 Hyperkalemia E87.5 COVID-19 U07.1 Sepsis A41.9 Septic shock A41.9; R65.21 Other coma depth, at hospital admission R40.2443 Altered mental status type: coma Coma depth: other Coma timing: at hospital admission Metabolic encephalopathy G93.41 Anoxic encephalopathy G93.1 Acute respiratory failure with hypoxia J96.01
[2023-10-15] MEDS: enoxaparin 100 mg/mL Syringe 90 MG SUBCUT ×2 (11:59→22:07)
[2023-10-15 14:47] LABS: Glucose Point of Care 253 mg/dL (70-110)
--- NOTE | 2023-10-15 15:05 | PC.NURSE ---
Pt was extubated to 3l NC. Tolerated well.
[2023-10-15] MEDS: remdesivir 100 MG in sodium chloride 0.9% (100 ml) 80 ML IV (17:49)
[2023-10-15 22:03] LABS: Glucose Point of Care 250 mg/dL (70-110)
[2023-10-16] VITALS (50 sets, daily range): BP systolic 91–161; BP diastolic 55–118; PULSE 81–97; RESP 15–32; TEMP 36.3–37.1; O2SAT 87–100
[2023-10-16] MEDS: ipratropium-albuterol 3 mL Neb INHALATION ×3 (01:30→14:04)
[2023-10-16 03:56] LABS: Basophils % 0.3 %; Hematocrit 33.7 % (37-53); Lymphocytes % 13.1 %; Mean Corpuscular HGB Conc 33.2 g/dL (30-55); Mean Corpuscular Hemoglobin 32.8 pg (27-33); Mean Corpuscular Volume 98.8 fl (82-101); Mean Platelet Volume 10.9 fL (7.4-10.4); Monocytes # 0.5 10^3/uL (0.2-0.9); Monocytes % 6.2 %; Neutrophils # 6.03 10^3/uL (1.8-7.7); Neutrophils % 79.6 %; Nucleated Red Blood Cells % 0 %; Platelet Count 126 10^3/cmm (157-399); Red Blood Count 3.41 10^6/uL (3.85-5.65); Red Cell Distribution Width 13.5 % (12.1-15.1); White Blood Count 7.57 10^3/uL (3.29-11.43)
[2023-10-16 04:23] LABS: Anion Gap 14.3 (5-19); Blood Urea Nitrogen 43 mg/dL (8-23); Calcium 7.7 mg/dL (8.5-10.5); Carbon Dioxide 30 mmol/L (22-29); Chloride 98 mmol/L (98-107); Creatinine Clr Calc Pharmacy 43.6418; Glucose 115 mg/dL (65-115); Osmolality Calculated 300 mOsm/kg (285-295); Potassium 3.3 mmol/L (3.5-5.1); Sodium 139 mmol/L (136-145)
[2023-10-16 04:55] LABS: Glucose Point of Care 124 mg/dL (70-110)
[2023-10-16] MEDS: piperacillin-tazobactam 3.375 GM in sodium chloride 0.9% (plus) 50 ML IV ×3 (05:01→20:51)
--- NOTE | 2023-10-16 07:49 | P.PN_ITS ---
Subjective 2 Subjective: Patient unable to follow most commands. Once I got very close to his right side he was able to wave his hand up however seems he may have a receptive aphasia. I did visually show him to squeeze my hand and then he squeeze my hand. Patient does not follow any other commands at this time. Limited neuroexam. Unable to assess for cranial nerves. Almost seems like he has a hemineglect. Patient favoring his right side. Nursing staff reported patient unable to swallow at all. Saturating 95% on room air. Unable to cough for me either. Not sure if patient is able to protect his airway however he is DNR/DNI at this time. Will be checking a CT head. Vitals/I&O/Wt Last Vital Signs Temp 97.7 F 10/16/23 01:30 Pulse 81 10/16/23 06:30 Resp 15 10/16/23 06:30 BP 126/70 10/16/23 06:30 Pulse Ox 93 10/16/23 06:30 O2 Del Method Room Air 10/16/23 01:30 O2 Flow Rate 2 10/11/23 16:40 FiO2 30 10/15/23 13:21 10/15/23 10/16/23 10/16/23 22:59 06:59 14:59 Intake Total 276.428 / 364.303 50 / 414.303 Output Total 950 / 950 600 / 1550 Balance -673.572 / -585.697 -550 / -1135.697 Weight last 48 hrs Weight 83.007 kg Weight 83.461 kg Physical Exam 2 Narrative: Unable to follow any commands. Off pressors Mild signs of fluid overload Napoles catheter in place Abdomen soft No audible stridor or wheezing Normal S1-S2, rhonchi at bases Heart exam: Limited. Able to move hands however seems to be nonpurposeful movements. Does have dysphagia as per nursing staff. Urinary Catheter Management: Napoles: Cath Placed During This Visit: yes Reason for Continuing Indwelling Catheter: Accurate Measurement of Urinary Output in Critically Ill Patients Urinary Catheter Date of Insertion: 10/11/23 Urinary Catheter Time of Insertion: 17:30 Data 10/16/23 03:35 10/16/23 03:35 A&P Assessment and plan (1) New onset of congestive heart failure: (2) Non-STEMI (non-ST elevated myocardial infarction): (3) Hx of CABG: (4) Atrial fibrillation with RVR: (5) Ventricular fibrillation: (6) Cardiac arrest: (7) Hyperlipidemia: Qualifiers: Hyperlipidemia type: pure hypercholesterolemia Qualified Code(s): E 78.00 - Pure hypercholesterolemia, unspecified (8) Metabolic acidosis: (9) Hyperkalemia: (10) COVID-19: (11) Sepsis: (12) Septic shock: (13) Altered mental status: Qualifiers: Altered mental status type: coma Coma depth: other Coma timing: at hospital admission Qualified Code(s): R40.2443 - Other coma, without documented Mally coma scale score, or with partial score reported, at hospital admission (14) Metabolic encephalopathy: (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: (16) Acute respiratory failure with hypoxia: Plan 83 male who was recently discharged from [facility] 2 days ago before his admission to the hospital for management & evaluation of respiratory distress, he was diagnosed with acute hypoxic hypercarbic respiratory failure, new onset CHF, non-STEMI, he was put on BiPAP at the time of admission, and next 12 hours patient had wide QRS rhythm, he lost pulse CODE BLUE was called after 2 rounds of epi ROSC was obtained there was concern for V-fib however he does have A-fib with left bundle branch block, his troponins were not remarkably high, echo showed mildly reduced EF, he was admitted as septic shock to the ICU, required Levophed along dobutamine and vasopressin at some point which was gradually weaned off, for his A-fib he was put on amiodarone drip which we have discontinued on 10/14, transition to p.o. regimen, please note his A1c is below 7 however his blood sugar was above 400 with high anion gap I started insulin drip which improved his metabolic acidosis and hyperglycemia. He was given bicarb drip on admission which was running through D5, I have discontinued bicarb drip as well, off sedation 10/14 since 5 AM, able to follow some commands. Patient was extubated 10/15/2023. A-fib plus left bundle branch block most likely cause of wide QRS rhythm. Cardiology on board. Cardiac arrest related to severe sepsis Concern for V-fib Weaning trial once he is able to follow command Patient is blinking his eyes on verbal command Off sedation since 5 AM If extubated will request another evaluation from cardiology whether they would opt for stress test versus angiogram I do believe his wide QRS rhythm was related to A-fib with left bundle branch block I have switched his IV amiodarone to p.o. regimen Mildly reduced EF V-fib:? Will discuss with cardiology if patient would benefit from an AICD however I do believe it was A-fib with left bundle branch block showing wide QRS Systolic CHF exacerbation Continue diuresis Patient cardiology recommendations [place]: Cardiorenal Continue diuresis COVID-19 related pneumonia Continue antibiotics Afebrile this morning Respiratory failure secondary to hypoxic hypercarbic respite failure Patient extubated Dysphagia ? Strict n.p.o. at this time ? Switch oral medications to IV at this time ? Check CT head to rule out stroke - Consult neurology Will discuss with family regarding PEG tube placement. Patient unable to participate with speech therapy and not following many commands at this time. Patient will need PT OT and ST Metabolic acidosis: Resolved Hyperkalemia: Resolved Patient carries history of CABG Prognosis will be further assessed after neuro cognition evaluation. Goals of care changed from full code to DNR/DNI after reviewing advance directives and medical DPOA documentation Prognosis seems to poor. Attestations 2 Medical Necessity Statement*: Pt not following commands, recent vent dep resp failure, continue ICU level care Diagnoses New onset of congestive heart failure I50.9 Non-STEMI (non-ST elevated myocardial infarction) I21.4 Hx of CABG Z95.1 Atrial fibrillation with RVR I48.91 Ventricular fibrillation I49.01 Cardiac arrest I46.9 Pure hypercholesterolemia E78.00 Hyperlipidemia type: pure hypercholesterolemia Metabolic acidosis E87.20 Hyperkalemia E87.5 COVID-19 U07.1 Sepsis A41.9 Septic shock A41.9; R65.21 Other coma depth, at hospital admission R40.2443 Altered mental status type: coma Coma depth: other Coma timing: at hospital admission Metabolic encephalopathy G93.41 Anoxic encephalopathy G93.1 Acute respiratory failure with hypoxia J96.01
[2023-10-16] MEDS: pantoprazole 40 mg SDV IVP ×2 (09:00→17:47)
[2023-10-16] MEDS: FUROsemide 10 mg/mL SDV 10mL 20 MG IVP (09:00)
--- NOTE | 2023-10-16 10:50 | CT_ITS ---
WS: [id number] CT HEAD NONCONTRAST HISTORY: r/o stroke TECHNIQUE: Contiguous axial imaging performed through the brain in 2.5 mm imaging. Bone and soft tiss ue windows. Sagittal and coronal reformats reviewed. All CT scans at [facility] use at least one of these dose optimization techniques: automated exposure control; mA and/or kV adjustment per pa tient size (includes targeted exams where dose is matched to clinical indication); or iterative recon struction. DLP: 2283.64 mGy.cm COMPARISON: 10/11/2023 No acute intracranial hemorrhage, midline shift or mass effect. Moderate atrophy and small vessel ischemic disease. No acute infarct or hemorrhage. Moderate bilatera l cerebellar atrophy. Ventricles: Mild ventricular dilatation on the basis of atrophy. Paranasal sinuses: Mucoperiosteal disease in the LEFT maxillary and ethmoid sinuses. Small fluid leve ls in the sphenoid sinuses. Mastoid air cells: Well pneumatized. Calvarium and scalp: Skull is intact with no soft tissue edema or swelling. IMPRESSION: 1. No acute intracranial hemorrhage or edema. 2. Moderate atrophy and small vessel ischemic disease. No acute interval change since 10/11/2023.
[2023-10-16 12:24] LABS: Glucose Point of Care 200 mg/dL (70-110)
[2023-10-16] MEDS: enoxaparin 100 mg/mL Syringe 90 MG SUBCUT ×2 (12:45→22:11)
[2023-10-16] MEDS: insulin lispro 100 unit/1 mL SUBCUT ×2 (12:45→22:11)
--- NOTE | 2023-10-16 13:05 | USCV_ITS ---
Junior Marguerite Age: 83 Gender: M : 1940 Exam Date: 10/16/2023 20:02 Ordering Phys: Yonas Clarke MD Technologist: TERRI [place] [facility] [place]: AMS, Patient is not oriented, in restraints, cannot cooperate, technically difficult study. No history available. Risk Factors: AMS, Patient is not oriented, in restraints, cannot cooperate, technically difficult study. No history available. Previous Vascular Surgery: unknown Right Brachial BP: 159 / 118 Left Brachial BP: / Right Left Velocity (cm/s) Spectral Plaque Velocity (cm/s) Spectral Plaque Syst/Diast Broadening Syst/Diast Broadening 76.00/ 14.30 Min Hetro Prox CCA 98.90 / 16.60 Mod Hetro 55.70/ 10.30 Min Homo Mid CCA 82.10 / 8.90 Mod Homo 57.70/ 8.90 Min Homo Distal CCA 65.40 / 11.40 Min Homo 50.00/ 8.90 Mod Homo Prox ICA 45.80 / 8.60 Mod Edgar 62.90/ 16.60 Min Homo Mid ICA 78.40 / 16.30 Mod Homo 51.30/ 11.40 Min Homo Distal ICA 68.60 / 14.10 Min Homo 102.70 Min Homo ECA 136.10 Mod Homo 1.10 ICA/CCA 1.20 Antegrade Vertebral Antegrade 38.40/ 6.30 cm/s 34.80/ 6.40 cm/s Tri Subclavian Tri 66.70 85.10 FINDINGS Comparison: none available. Technically difficult exam. No significant elevation of systolic or diastolic velocities. Diffuse bilateral scattered calcified plaque and intimal thickening throughout the common carotid arteries and extending through the bifurcation. CONCLUSIONS Bilateral ICA stenosis less than 50%. Dr. Lisa Shafer DO (Electronically Signed) Final Date: 17 October 2023 08:55 S
--- NOTE | 2023-10-16 13:47 | PC.SOCIAL ---
IMM Update pg 2 of IMM updated and reviewed w/ patients sister. Copy left @ bedside and copy dated, initialed and placed in chart.
[2023-10-16 14:45] LABS: Phosphorus 2.3 mg/dL (2.5-4.5)
[2023-10-16 16:59] LABS: Glucose Point of Care 133 mg/dL (70-110)
--- NOTE | 2023-10-16 17:44 | P.CONIM_ITS ---
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 The patient was admitted with COVID-19 infection. Patient was reported to experience cardiac and respiratory arrest requiring intubation. The patient was extubated but observed to have altered mental status and therefore neurology consult was obtained to assess for stroke versus seizures. Currently the patient is alert but having difficulty producing words. Patient repeatedly pointing at his upper hard palate and throat. He does follow commands. Motor testing appears to be nonfocal. Noncontrast head CT scan was obtained and revealed moderate atrophy and small vessel ischemic changes but no acute findings. Metabolic lab revealed elevated creatinine of 1.3. Therefore, CT angiogram was not ordered. Drug allergies: Metformin type reaction unknown Rosuvastatin which resulted in muscle aches and pains Home medications: None Past medical history: Ventricular fibrillation Atrial fibrillation New onset congestive heart failure COVID-19 infection Acute respiratory failure with hypoxia Hyperlipidemia Coronary atherosclerotic heart disease status post Type 2 diabetes mellitus Hypertension Habits: Unknown Family history: Unknown Review of Systems 2 General: Reports: ROS unobtainable due to medical condition Medications/Allergies Home Medications Medication Instructions Recorded Confirmed Last Taken Type No Known Home Medications 10/11/23 10/11/23 Unknown History Allergies Allergy/AdvReac Type Severity Reaction Status Date / Time metformin Allergy unknown Verified 04/09/20 08:20 rosuvastatin Allergy ADR-Muscle Verified 10/18/19 09:51 Pain Current Medications Generic Name Dose Route Start Last Admin Trade Name Freq PRN Reason Stop Dose Admin Albuterol/Ipratropium 3 ml 10/12/23 14:00 10/16/23 14:04 Ipratropium-Albuterol 3 Ml Neb INHALATION 3 ml Q6H.RESP KRISTY Administration Amiodarone HCl 400 mg 10/14/23 18:00 10/16/23 08:51 Amiodarone 200 Mg Tablet PO Not Given BID KRISTY Chlorhexidine Gluconate 1 applic 10/14/23 20:00 10/16/23 05:31 Chlorhexidine Gluconate 4% Btl 118 Ml TOPICAL Not Given Q24H KRISTY Enoxaparin Sodium 90 mg 10/11/23 22:00 10/16/23 12:45 Enoxaparin 100 Mg/Ml Syringe SUBCUT 90 mg Q12H KRISTY Administration Furosemide 20 mg 10/16/23 09:00 10/16/23 09:00 Furosemide 10 Mg/Ml Sdv 10ml IVP 20 mg DAILY KRISTY Administration Propofol 1,000 mg in 100 mls @ 0 mls/hr 10/12/23 06:30 10/15/23 18:03 Diprivan IV Infused .Q0M KRISTY Titration Protocol Per Protocol Piperacillin Sod/Tazobactam 50 mls @ 12.5 mls/hr 10/12/23 12:00 10/16/23 12:44 Sod 3.375 gm/ Sodium Chloride IV 12.5 mls/hr Q8H KRISTY Administration Protocol Dextrose 125 mls @ 750 mls/hr 10/13/23 22:25 10/15/23 19:20 D10w IV Infused PRN PRN Infusion Adult Acute Hypoglycemia Nursing Protocol Protocol Insulin Human Lispro 0 unit 10/13/23 22:30 10/16/23 17:20 Insulin Lispro 100 Unit/1 Ml SUBCUT Not Given Q6H [facility] Protocol Metoprolol Tartrate 25 mg 10/11/23 21:44 10/12/23 08:54 Metoprolol Tartrate 25 Mg Tablet PO Not Given BID@0900,2100 KRISTY Pantoprazole Sodium 40 mg 10/11/23 18:00 10/16/23 09:00 Pantoprazole 40 Mg Sdv IVP 40 mg BID KRISTY Administration Senna/Docusate Sodium 1 tab 10/12/23 09:00 10/16/23 08:52 Sennosides-Docusate Tablet PO Not Given DAILY KRISTY PFSH Acute 2 PFSH: Medical History (Updated 10/15/23 @ 08:09 by Adal Tang MD) Anoxic encephalopathy Dementia Hx of coronary artery disease History of hypertension Hx of chronic arthritis History of CVA (cerebrovascular accident) Hx of chest pain Hx of cholelithiasis History of peripheral arterial disease Hx of hyperlipidemia Hx of coronary artery disease Hyperlipidemia Diabetes Hypertension Surgical History Hx of heart bypass surgery History of local excision of skin lesion Neurofibroma left thumb Hx of CABG Family History Denies family history of Anesthesia complication Bleeding disorder Social History Smoking and tobacco/nicotine status: never used tobacco/nicotine Alcohol intake: never Substance/Drug Use: never Vitals/I&O/Wt Last Vital Signs Temp 98.0 F 10/16/23 07:00 Pulse 86 10/16/23 16:30 Resp 18 10/16/23 16:30 BP 150/118 10/16/23 16:30 Pulse Ox 92 10/16/23 16:00 O2 Del Method Room Air 10/16/23 14:04 O2 Flow Rate 2 10/11/23 16:40 FiO2 30 10/15/23 13:21 10/16/23 10/16/23 10/16/23 06:59 14:59 22:59 Intake Total 50 / 414.303 50 / 50 Output Total 600 / 1550 1450 / 1450 Balance -550 / -1135.697 50 / 50 -1450 / -1400 Weight last 48 hrs Weight 183 lb Weight 184 lb Physical Exam 2 Narrative: The patient is alert and oriented to person. Patient attempts to cooperate and attempts to talk but is unable to speak and he continues to point inside of his throat near his upper hard palate and down his throat area suggestive of trouble with his vocal cords or throat pain. Right pupil scar secondary to a chronic injury. Left pupil 3 to 4 mm reactive to light. Extraocular movements intact. Head atraumatic. 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 This is reported to be chronic. Motor testing grossly nonfocal. Patient able to lift all extremities against gravity to command. Deep tendon reflexes revealed plantar responses bilaterally. There was no clonus. Sensory examination was intact to touch. Throat appears to be clear. Lungs revealed no obvious wheezes. Heart regular rhythm and rate extremities were negative for cyanosis. Urinary Catheter Management: Napoles: Cath Placed During This Visit: yes Reason for Continuing Indwelling Catheter: Accurate Measurement of Urinary Output in Critically Ill Patients Urinary Catheter Date of Insertion: 10/11/23 Urinary Catheter Time of Insertion: 17:30 Data 10/16/23 03:35 10/16/23 03:35 A&P Assessment and plan (1) Anoxic encephalopathy: Impression: 1. Metabolic versus anoxic encephalopathy 2. Nonverbal with difficulty speaking recommend assessing for vocal cord injury 3. History of COVID-19 infection requiring intubation, patient now extubated 4. Renal insufficiency with elevated creatinine of 1.3 5. Congestive heart failure with decreased ejection fraction of 40 to 45% Plan: 1. Agree with current treatment 2. Recommend ENT evaluation to assess for any vocal cord injury 3. Once patient off COVID restrictions, consider obtaining noncontrast head MRI to assess for brainstem infarction if the patient's for us does not improve 4. Recommend obtaining carotid duplex study to assess for carotid or vertebral artery stenosis Consult Attestations 2 Medical Necessity Statement: Patient evaluated by neurology for altered mental status Coding Level of Care Code 64768 Diagnoses Anoxic encephalopathy G93.1
[2023-10-16] MEDS: potassium phosphate (mEq K) 40 MEQ in sodium chloride 0.9% (100 ml) 100 ML 27.2699999999999996 MEQ IV (17:47)
[2023-10-16 22:07] LABS: Glucose Point of Care 165 mg/dL (70-110)
--- NOTE | 2023-10-16 23:31 | PC.NURSE ---
Spoke with regarding patient that will be transfered from ICU to [facility]. The patient has an active order for IV Amiodarone gtt which has not been started. note said to start IV as patient PO amiodarone is on hold due to dysphagia. Confirmed with that patient should be started on amiodarone gtt. Nurse started gtt after patient arrived to CSU and settled in room 108.
[2023-10-17] VITALS (9 sets, daily range): BP systolic 128–147; BP diastolic 65–81; PULSE 76–91; RESP 15–25; TEMP 35.8–36.9; O2SAT 94–100
[2023-10-17] MEDS: piperacillin-tazobactam 3.375 GM in sodium chloride 0.9% (plus) 50 ML IV ×3 (03:39→20:24)
[2023-10-17 04:52] LABS: Basophils % 0.1 %; Eosinophils % 0.1 %; Hematocrit 34.3 % (37-53); Lymphocytes # 0.9 10^3/uL (0.8-4.8); Lymphocytes % 12.9 %; Mean Corpuscular HGB Conc 31.5 g/dL (30-55); Mean Corpuscular Hemoglobin 31.2 pg (27-33); Mean Corpuscular Volume 99.1 fl (82-101); Mean Platelet Volume 9.7 fL (7.4-10.4); Monocytes # 0.5 10^3/uL (0.2-0.9); Monocytes % 6.9 %; Neutrophils # 5.54 10^3/uL (1.8-7.7); Neutrophils % 78.6 %; Nucleated Red Blood Cells % 0 %; Platelet Count 215 10^3/cmm (157-399); Red Blood Count 3.46 10^6/uL (3.85-5.65); Red Cell Distribution Width 13.6 % (12.1-15.1); White Blood Count 7.06 10^3/uL (3.29-11.43)
[2023-10-17 05:17] LABS: Phosphorus 3.9 mg/dL (2.5-4.5)
[2023-10-17 05:18] LABS: Anion Gap 16.9 (5-19); Blood Urea Nitrogen 44 mg/dL (8-23); Calcium 7.6 mg/dL (8.5-10.5); Carbon Dioxide 29 mmol/L (22-29); Chloride 102 mmol/L (98-107); Glucose 185 mg/dL (65-115); Magnesium 2.2 mg/dL (1.7-2.3); Osmolality Calculated 314 mOsm/kg (285-295); Potassium 3.9 mmol/L (3.5-5.1); Sodium 144 mmol/L (136-145)
[2023-10-17 05:24] LABS: Slide Review Slide Review Perform
[2023-10-17] MEDS: insulin lispro 100 unit/1 mL SUBCUT ×3 (05:24→23:02)
[2023-10-17 05:25] LABS: Glucose Point of Care 185 mg/dL (70-110)
--- NOTE | 2023-10-17 06:45 | PC.NURSE ---
Called and made patients sister Ilana Tinsley aware of the patient being transfered to [facility].
[2023-10-17] MEDS: pantoprazole 40 mg SDV IVP ×2 (09:40→18:14)
[2023-10-17] MEDS: FUROsemide 10 mg/mL SDV 10mL 20 MG IVP (09:40)
[2023-10-17] MEDS: enoxaparin 100 mg/mL Syringe 90 MG SUBCUT (09:41)
[2023-10-17 10:10] LABS: Glucose Point of Care 146 mg/dL (70-110)
--- NOTE | 2023-10-17 10:16 | PC.NURSE ---
Pt speak few words such as good morning , No. He is able to follow commands when i asked him to squeeze my fingers, and he squeeze them. Oral care provided with sponge swab.
--- NOTE | 2023-10-17 11:45 | PM.PN ---
Subjective Subjective: Patient is awake and is trying to follow verbal commands. Difficulty in talking. Denies any chest pain. No shortness of breath. His oxygen saturation 94% room air. No fever, chills or cough. Medications: Medication Review Details: Current Medications Acetaminophen (Acetaminophen 500 Mg Tablet) 500 mg PO Q4H PRN PRN Reason: fever Albuterol/Ipratropium (Ipratropium-Albuterol 3 Ml Neb) 3 ml INHALATION Q6H.RESP PRN PRN Reason: Shortness Of Breath Amiodarone HCl (Amiodarone 200 Mg Tablet) 400 mg PO BID [facility] Last Admin: 10/16/23 08:51 Dose: Not Given Chlorhexidine Gluconate (Chlorhexidine Gluconate 4% Btl 118 Ml) 1 applic TOPICAL Q24H [facility] Last Admin: 10/16/23 20:29 Dose: Not Given Enoxaparin Sodium (Enoxaparin 100 Mg/Ml Syringe) 90 mg SUBCUT Q12H [facility] Last Admin: 10/17/23 09:41 Dose: 90 mg Furosemide (Furosemide 10 Mg/Ml Sdv 10ml) 20 mg IVP DAILY [facility] Last Admin: 10/17/23 09:40 Dose: 20 mg Piperacillin Sod/Tazobactam (Sod 3.375 gm/ Sodium Chloride) 50 mls @ 12.5 mls/hr IV Q8H [facility]; Protocol Last Infusion: 10/17/23 08:13 Dose: Infused Magnesium Sulfate (Magnesium Sulfate Premix) 2 gm in 50 mls @ 50 mls/hr IV PRN PRN PRN Reason: HYPOMAGNESIUMIA Potassium Phosphate 40 meq/ (Sodium Chloride) 108.5106 mls @ 27.273 mls/hr IV PRN PRN PRN Reason: hypophosphatemia Lidocaine HCl 5 ml/ Potassium (Chloride) 105 mls @ 25 mls/hr IV PRN PRN PRN Reason: hypokalemia Dextrose (D5w) 500 mls @ 0 mls/hr IV ONCE PRN; Protocol PRN Reason: Adult Acute Hypoglycemia Prot Dextrose (D10w) 125 mls @ 750 mls/hr IV PRN PRN; Protocol PRN Reason: Adult Acute Hypoglycemia Nursing Protocol Last Infusion: 10/15/23 19:20 Dose: Infused Dextrose (D10w) 250 mls @ 1,000 mls/hr IV PRN PRN; Protocol PRN Reason: Adult Acute Hypoglycemia Nursing Protocol Amiodarone HCl/Dextrose (Nexterone) 360 mg in 200 mls @ 0 mls/hr IV .Q0M [facility]; Protocol Last Admin: 10/16/23 23:31 Dose: 0.5 mg/min, 16.67 mls/hr Insulin Human Lispro (Insulin Lispro 100 Unit/1 Ml) 0 unit SUBCUT Q6H [facility]; Protocol Last Admin: 10/17/23 05:24 Dose: 6 unit Metoprolol Tartrate (Metoprolol Tartrate 25 Mg Tablet) 25 mg PO BID@0900,2100 [facility] Last Admin: 10/12/23 08:54 Dose: Not Given Ondansetron HCl (Ondansetron 2 Mg/Ml Sdv 2 Ml) 4 mg IVP Q6H PRN PRN Reason: NAUSEA AND VOMITING Pantoprazole Sodium (Pantoprazole 40 Mg Sdv) 40 mg IVP BID [facility] Last Admin: 10/17/23 09:40 Dose: 40 mg Senna/Docusate Sodium (Sennosides-Docusate Tablet) 1 tab PO DAILY [facility] Last Admin: 10/17/23 09:35 Dose: Not Given Vitals/I&O/Wt Last Vital Signs Temp 97.7 F 10/17/23 10:07 Pulse 84 10/17/23 10:07 Resp 15 10/17/23 10:07 BP 147/81 10/17/23 10:07 Pulse Ox 96 10/17/23 10:07 O2 Del Method Room Air 10/17/23 10:07 O2 Flow Rate 2 10/11/23 16:40 FiO2 30 10/15/23 13:21 10/16/23 10/17/23 10/17/23 22:59 06:59 14:59 Intake Total 158.5106 / 208.5106 265 / 473.5106 50 / 50 Output Total 1700 / 1700 300 / 2000 Balance -1541.4894 / -1491.4894 -35 / -1526.4894 50 / 50 Weight last 48 hrs Weight 189 lb 14.4 oz Weight 189 lb 14.4 oz Weight 189 lb 14.4 oz Weight 183 lb Physical Exam Narrative: GENERAL: The patient is alert and oriented to person. HEENT: Minimal pallor. No icterus or lymphadenopathy.Oral cavity: There are no mucous membrane lesions. NECK: Trachea appears to be central. No masses noted. No JVD or thyromegaly appreciated. RESPIRATORY: Chest is symmetrical. No intercostals muscle retraction or any accessory muscle activation. There is no chest wall tenderness. Breath sounds are heard bilaterally. No rales or rhonchi heard. No evidence of any consolidation. BREASTS: Deferred. HEART: The heart sounds are normal. No S3 or S4. Short systolic murmur in the lower sternal border. No diastolic murmurs. No pericardial rub ABDOMEN: No vessel pulsations or distention. No tenderness. No organomegaly appreciated. Bowel sounds are normally heard. : Deferred. RECTAL: Deferred. LYMPHATIC: No lymphadenopathy noted in the neck. EXTREMITIES: Trace edema with no cyanosis. MUSCULOSKELETAL: No acute joint deformities or swelling SKIN: There are no significant rashes or ecchymosis NEUROPSYCHIATRIC: Patient is alert and oriented to person. No focal motor deficit. Urinary Catheter Management: Napoles: Cath Placed During This Visit: yes Reason for Continuing Indwelling Catheter: Acute Urinary Retention or Obstruction Urinary Catheter Date of Insertion: 10/11/23 Urinary Catheter Time of Insertion: 17:30 Data 10/17/23 04:10 10/17/23 04:10 Other Labs: Laboratory Last Values WBC 7.06 10^3/uL (3.29-11.43) 10/17/23 04:10 RBC 3.46 10^6/uL (3.85-5.65) L 10/17/23 04:10 Hgb 10.80 g/dL (11.27-16.99) L 10/17/23 04:10 Hct 34.3 % (37-53) L 10/17/23 04:10 MCV 99.1 fl (82-101) 10/17/23 04:10 MCH 31.2 pg (27-33) 10/17/23 04:10 MCHC 31.5 g/dL (30-55) D 10/17/23 04:10 RDW 13.6 % (12.1-15.1) 10/17/23 04:10 Plt Count 215 10^3/cmm (157-399) D 10/17/23 04:10 MPV 9.7 fL (7.4-10.4) 10/17/23 04:10 Neut % (Auto) 78.6 % 10/17/23 04:10 Lymph % (Auto) 12.9 % 10/17/23 04:10 [place] % (Auto) 6.9 % 10/17/23 04:10 Eos % (Auto) 0.1 % 10/17/23 04:10 Baso % (Auto) 0.1 % 10/17/23 04:10 Neut # (Auto) 5.54 10^3/uL (1.8-7.7) 10/17/23 04:10 Lymph # (Auto) 0.9 10^3/uL (0.8-4.8) 10/17/23 04:10 [place] # (Auto) 0.5 10^3/uL (0.2-0.9) 10/17/23 04:10 Eos # (Auto) 0.0 10^3/uL (0.0-0.8) 10/17/23 04:10 Baso # (Auto) 0.0 10^3/uL (0.0-0.1) 10/17/23 04:10 Nucleated RBC % (auto) 0 % 10/17/23 04:10 Nucleated RBCs # 0.0 /100WBC 10/17/23 04:10 PT 16.10 SECONDS (12.1-14.9) H 10/11/23 16:26 INR 1.25 (0.8-1.2) H 10/11/23 16:26 APTT 35.2 SECONDS (23.9-36.7) 10/11/23 16:26 D-Dimer 1.56 ug/mLFEU (0-0.59) H 10/11/23 16:16 Specimen Type Arterial 10/15/23 04:25 Sample Site Radial, right 10/15/23 04:25 ABG pH 7.43 (7.35-7.45) 10/15/23 04:25 ABG pCO2 42.9 mmHg (35-45) 10/15/23 04:25 ABG pO2 85.8 mmHg (80.0-100.0) 10/15/23 04:25 ABG PO2/FiO2 Ratio 0 10/15/23 04:25 ABG HCO3 28.1 mmol/L (22-26) H 10/15/23 04:25 ABG O2 Saturation 100.0 10/12/23 06:25 ABG Base Excess 3.3 mmol/L (-2.0-2.0) H 10/15/23 04:25 David Test Pos 10/15/23 04:25 A-a O2 Gradient 57.9 mmHg (5-10) H 10/12/23 06:25 Hematocrit 33.3 % (42-52) L 10/15/23 04:25 Hgb O2 Saturation 98.6 % (95-100) 10/12/23 06:25 Carboxyhemoglobin 0.7 %THgb (0.4-20.1) 10/12/23 06:25 Methemoglobin 0.7 % (0.4-1.5) 10/12/23 06:25 Total Hemoglobin 13.2 g/dL (14-18) L 10/12/23 06:25 Sodium 135.0 mmol/L (131-143) 10/12/23 06:25 Potassium 5.1 mmol/L (3.5-5.0) H 10/12/23 06:25 Glucose 493.0 mg/dL (70-115) H 10/12/23 06:25 Ionized Calcium 1.0 mmol/L (1.1-1.4) L 10/12/23 06:25 O2 Delivery Device Vent 10/15/23 04:25 O2 Liters/Min 2.0 % 10/11/23 16:45 FiO2 30.0 % 10/15/23 04:25 Tidal Volume 0.40 10/15/23 04:25 PEEP 6.0 cmH20 10/15/23 04:25 Daytime Babysitter ID [email or web address] 10/15/23 04:25 Sodium 144 mmol/L (136-145) 10/17/23 04:10 Potassium 3.9 mmol/L (3.5-5.1) 10/17/23 04:10 Chloride 102 mmol/L (98-107) 10/17/23 04:10 Carbon Dioxide 29 mmol/L (22-29) 10/17/23 04:10 Anion Gap 16.9 (5-19) 10/17/23 04:10 BUN 44 mg/dL (8-23) H 10/17/23 04:10 Creatinine 1.1 mg/dL (0.7-1.2) 10/17/23 04:10 GFR Calculation Not Reportable 10/17/23 04:10 Glucose 185 mg/dL (65-115) H 10/17/23 04:10 POC Glucose 146 mg/dL (70-110) H 10/17/23 10:00 Calculated Osmolality 314 mOsm/kg (285-295) H 10/17/23 04:10 Lactic Acid 3.3 mmol/L (0.5-2.2) H 10/12/23 13:45 Lactic Acid (Sepsis) 4.3 mmol/L (0.5-2.2) H* 10/12/23 16:45 Lactate 4.3 mmol/L (0.5-2.2) H* 10/12/23 08:34 Calcium 7.6 mg/dL (8.5-10.5) L 10/17/23 04:10 Phosphorus 3.9 mg/dL (2.5-4.5) 10/17/23 04:10 Magnesium 2.2 mg/dL (1.7-2.3) 10/17/23 04:10 Total Bilirubin 0.7 mg/dL (0.15-1.2) 10/14/23 03:59 AST 78 U/L (0-40) H 10/14/23 03:59 ALT 120 U/L (0-41) H 10/14/23 03:59 Alkaline Phosphatase 78 U/L (40-130) 10/14/23 03:59 Ammonia 18 umol/L (16-60) 10/11/23 16:26 Creatine Kinase 467 U/L (39-308) H* 10/15/23 04:50 Troponin T Baseline 29 ng/L (0-15) H 10/12/23 06:22 Troponin T 120 Minute 61.52 ng/L (0-15) H 10/12/23 08:34 Delta Troponin T 32.52 ABS# (0-10) H* 10/12/23 08:34 Troponin T Hi Sens 6Hr 131.8 ng/L (0-15) H 10/12/23 13:45 Troponin T Hi Sens 6Hr Delta 102.8 ng/L (0-12) H* 10/12/23 13:45 C-Reactive Protein 286.6 mg/L (0.0-4.9) H 10/12/23 04:52 NT-Pro-B Natriuret Pep 79693 pg/mL (0-450) H 10/11/23 16:26 Total Protein 5.4 g/dL (6.6-8.7) L 10/14/23 03:59 Albumin 2.5 g/dL (3.5-5.2) L 10/14/23 03:59 Globulin 2.9 g/dL (1.3-4.6) 10/14/23 03:59 Vitamin B12 576 pg/mL (232-1245) 10/11/23 16:26 Procalcitonin 1.01 ng/mL (0-0.5) H 10/11/23 16:26 TSH 1.43 uIU/mL (0.27-4.20) 10/11/23 16:26 Urine Color Yellow (Yellow) 10/11/23 17:47 Urine Appearance Clear (CLEAR) 10/11/23 17:47 Urine pH 5 (5-7) 10/11/23 17:47 Ur Specific [place] 1.020 (1.005-1.030) 10/11/23 17:47 Urine Protein 1+ (Negative) H 10/11/23 17:47 Urine Glucose (UA) 4+ (Normal) H 10/11/23 17:47 Urine Ketones 2+ (Negative) H 10/11/23 17:47 Urine Blood 2+ (Negative) H 10/11/23 17:47 Urine Nitrate Negative (Negative) 10/11/23 17:47 Urine Bilirubin Neg (Negative) 10/11/23 17:47 Urine Urobilinogen 1 mg/dL (Negative) H 10/11/23 17:47 Ur Leukocyte Esterase Negative (Negative) 10/11/23 17:47 Urine RBC 5-10 /hpf (0-2) H 10/11/23 17:47 Urine WBC 0-4 /hpf (0-5) H 10/11/23 17:47 Ur Squamous Epith Cells 0-4 /hpf (0-5) H 10/11/23 17:47 Amorphous Sediment Trace /hpf 10/11/23 17:47 Urine Bacteria Trace /hpf (NONE) 10/11/23 17:47 Urine Mucus 2+ /hpf 10/11/23 17:47 Urine Opiates Screen Negative ng/mL (Negative) 10/11/23 17:47 Ur Barbiturates Screen Negative ng/mL (Negative) 10/11/23 17:47 Ur Phencyclidine Scrn Negative ng/mL (Negative) 10/11/23 17:47 Ur Amphetamines Screen Negative ng/mL (Negative) 10/11/23 17:47 U Benzodiazepines Scrn Negative ng/mL (Negative) 10/11/23 17:47 Urine Cocaine Screen Negative ng/mL (Negative) 10/11/23 17:47 U Marijuana (THC) Screen Negative ng/mL (Negative) 10/11/23 17:47 Adenovirus (PCR) Not detected (NOT DETECT) 10/11/23 18:20 C. pneumoniae DNA (PCR) Not detected (NOT DETECT) 10/11/23 18:20 Coronavirus 229E (PCR) Not detected (NOT DETECT) 10/11/23 18:20 Human Metapneumovir PCR Not detected (NOT DETECT) 10/11/23 18:20 Influenza A (H1) PCR Not detected (NOT DETECT) 10/11/23 18:20 Influ A (H1/09) PCR Not detected (NOT DETECT) 10/11/23 18:20 Influenza A (H3) PCR Not detected (NOT DETECT) 10/11/23 18:20 Influenza Type A Ag negative (Negative) 10/11/23 18:20 Influenza Type A (PCR) Not detected (NOT DETECT) 10/11/23 18:20 Influenza Type B Ag negative (Negative) 10/11/23 18:20 Influenza Type B (PCR) Not detected (NOT DETECT) 10/11/23 18:20 M. pneumoniae (PCR) Not detected (NOT DETECT) 10/11/23 18:20 Parainfluenza 1 (PCR) Not detected (NOT DETECT) 10/11/23 18:20 Parainfluenza 2 (PCR) Not detected (NOT DETECT) 10/11/23 18:20 Parainfluenza 3 (PCR) Not detected (NOT DETECT) 10/11/23 18:20 Parainfluenza 4 (PCR) Not detected (NOT DETECT) 10/11/23 18:20 RSV Type A (PCR) Not detected (NOT DETECT) 10/11/23 18:20 RSV Type B (PCR) Not detected (NOT DETECT) 10/11/23 18:20 Entero/Rhino (PCR) Not detected (NOT DETECT) 10/11/23 18:20 SARS-CoV-2 (PCR) Detected (NOT DETECT) A 10/11/23 18:20 SARS-CoV-2 Ag (Rapid) negative (Negative) 10/11/23 18:20 MRSA (PCR) Not detected (NOT DETECTED) 10/12/23 18:12 Micro: Microbiology 10/11/23 17:50 Blood Culture - Final Blood NO GROWTH AFTER 5 DAYS 10/11/23 17:55 Blood Culture - Final Blood NO GROWTH AFTER 5 DAYS A&P Assessment and plan (1) Ventricular fibrillation: The exact etiology is not clear. Possibility of underlying coronary ischemia causing this is a consideration. Patient has not had a recurrence of the arrhythmia. May continue IV amiodarone, maintenance dose till p.o. can be given. (2) Hypotension: Currently the blood pressure is slightly elevated. Qualifiers: Hypotension type: unspecified hypotension type Qualified Code(s): I95.9 - Hypotension, unspecified (3) Atherosclerotic heart disease of [place] coronary artery without angina pectoris: Patient has a history of four-vessel coronary bypass surgery. Possible Non ST lesion myocardial infarction. Patient is on Lovenox. Qualifiers: [place] vs. transplanted heart: [place] heart Qualified Code(s): I25.10 - Atherosclerotic heart disease of [place] coronary artery without angina pectoris (4) Metabolic encephalopathy: Has significant improvement . patient has underlying dementia. (5) New onset of congestive heart failure: The heart failure is currently compensated. (6) Atrial fibrillation with RVR: Patient is in intermittent atrial fibrillation. Currently seems to be in sinus rhythm. (7) Acute respiratory failure with hypoxia: Patient has remained intubated. Currently is on FiO2 50%. Oxygen saturation are 98% Plan Currently resolved. He is on room air oxygen. The patient has a DNR status. Will discuss with the family again about invasive cardiac workup. Will continue on the current medication for the time being Attestations Medical Necessity Statement*: Deferred to the primary Coding Level of Care Code Acute Code for [facility] Fwd Diagnoses Ventricular fibrillation I49.01 Hypotension, unspecified hypotension type I95.9 Hypotension type: unspecified hypotension type Atherosclerosis of [place] coronary artery of [place] heart without angina pectoris I25.10 [place] vs. transplanted heart: [place] heart Metabolic encephalopathy G93.41 New onset of congestive heart failure I50.9 Atrial fibrillation with RVR I48.91 Acute respiratory failure with hypoxia J96.01
--- NOTE | 2023-10-17 12:20 | PC.NURSE ---
Doctor rounding Dr Bond stated, pt can be off the isolation precaution. per report pt has been tested + for covid on sep. He is ok to be off the ISO.
--- NOTE | 2023-10-17 13:24 | P.PN_ITS ---
Subjective 2 Subjective: No family present at bedside Urine output 1700 overnight Able to follow some commands at this point. However unable to swallow still. Points to his mouth repeatedly indicating something is wrong. Able to protect his airway at this time No drooling noted. Saturating 96% on room air RN present at bedside stated that patient said good morning earlier this morning. Right side may be slightly weaker than left. CT head negative for stroke. Tested positive for COVID . Will take off COVID precautions this morning. Will try to discuss with family regarding PEG tube placement? Patient awake alert however unable to communicate. Vitals/I&O/Wt Last Vital Signs Temp 96.5 F L 10/17/23 12:00 Pulse 85 10/17/23 12:00 Resp 15 10/17/23 12:00 BP 128/65 10/17/23 12:00 Pulse Ox 94 10/17/23 12:00 O2 Del Method Room Air 10/17/23 12:00 O2 Flow Rate 2 10/11/23 16:40 FiO2 30 10/15/23 13:21 10/16/23 10/17/23 10/17/23 22:59 06:59 14:59 Intake Total 158.5106 / 208.5106 265 / 473.5106 250 / 250 Output Total 1700 / 1700 300 / 2000 Balance -1541.4894 / -1491.4894 -35 / -1526.4894 250 / 250 Weight last 48 hrs Weight 86.137 kg Weight 86.137 kg Weight 86.137 kg Weight 83.007 kg Physical Exam 2 Narrative: Able to follow some commands. Unable to speak however. Earlier did say good morning to RN. 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 Neuroexam nonfocal. Napoles catheter in place Abdomen soft No audible stridor or wheezing Normal S1-S2, rhonchi at bases Heart exam: Normal S1-S2 Lungs clear to auscultation bilaterally Urinary Catheter Management: Napoles: Cath Placed During This Visit: yes Reason for Continuing Indwelling Catheter: Acute Urinary Retention or Obstruction Urinary Catheter Date of Insertion: 10/11/23 Urinary Catheter Time of Insertion: 17:30 Data 10/17/23 04:10 10/17/23 04:10 Micro: Microbiology 10/11/23 17:50 Blood Culture - Final Blood NO GROWTH AFTER 5 DAYS 10/11/23 17:55 Blood Culture - Final Blood NO GROWTH AFTER 5 DAYS A&P Assessment and plan (1) New onset of congestive heart failure: (2) Non-STEMI (non-ST elevated myocardial infarction): (3) Hx of CABG: (4) Atrial fibrillation with RVR: (5) Ventricular fibrillation: (6) Cardiac arrest: (7) Hyperlipidemia: Qualifiers: Hyperlipidemia type: pure hypercholesterolemia Qualified Code(s): E 78.00 - Pure hypercholesterolemia, unspecified (8) Metabolic acidosis: (9) Hyperkalemia: (10) COVID-19: (11) Sepsis: (12) Septic shock: (13) Altered mental status: Qualifiers: Altered mental status type: coma Coma depth: other Coma timing: at hospital admission Qualified Code(s): R40.2443 - Other coma, without documented [place] coma scale score, or with partial score reported, at hospital admission (14) Metabolic encephalopathy: (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: (16) Acute respiratory failure with hypoxia: Plan 83 male who was recently discharged from [facility] days ago before his admission to the hospital for management & evaluation of respiratory distress, he was diagnosed with acute hypoxic hypercarbic respiratory failure, new onset CHF, non-STEMI, he was put on BiPAP at the time of admission, and next 12 hours patient had wide QRS rhythm, he lost pulse CODE BLUE was called after 2 rounds of epi ROSC was obtained there was concern for V-fib however he does have A-fib with left bundle branch block, his troponins were not remarkably high, echo showed mildly reduced EF, he was admitted as septic shock to the ICU, required Levophed along dobutamine and vasopressin at some point which was gradually weaned off, for his A-fib he was put on amiodarone drip which we have discontinued on 10/14, transition to p.o. regimen, please note his A1c is below 7 however his blood sugar was above 400 with high anion gap I started insulin drip which improved his metabolic acidosis and hyperglycemia. He was given bicarb drip on admission which was running through D5, I have discontinued bicarb drip as well, off sedation 10/14 since 5 AM, able to follow some commands. Patient was extubated 10/15/2023. A-fib plus left bundle branch block most likely cause of wide QRS rhythm. Cardiology on board. #Cardiac arrest related to severe sepsis secondary to COVID-19 #Concern for V-fib, A-fib with RVR with left bundle branch block? #Systolic CHF exacerbation #History of CABG -Patient has been extubated October 15, 2023. Since extubation he has been unable to speak. Points towards his mouth. ? Question of vocal cord dysfunction versus injury? Able to protect airway at this time. ? Consult ENT for further evaluation ? Neuroexam is nonfocal. Patient able to follow most commands. ? Will check MRI brain without contrast to rule out brainstem stroke ? Cardiology consulted and on board. Will discuss with them for further management. -Continue Lasix 20 IV daily ? Metoprolol tartrate 25 twice daily ? Continue amiodarone drip 0.5 IV [place] most likely secondary to cardiorenal and shock ? Resolved at this point ? Continuing to diuresis #COVID-19 related pneumonia, septic shock # Vent dependent Respiratory failure secondary to hypoxic hypercarbic respite failure ? May remove COVID precautions. Tested + ? Patient on Zosyn at this time. We will treat for total of 10 days and stop. Last date October 19. ? Patient continues to be afebrile. ?Patient extubated Dysphagia ? Strict n.p.o. at this time ? Switch oral medications to IV at this time ? Check CT head to rule out stroke?CT head rule out stroke - Consult neurology. Appreciate recommendations ? Check MRI without contrast brain to rule out brainstem stroke Will discuss with family regarding PEG tube placement. Once family is available Speech therapy ordered. If family declines a PEG tube we will have to discuss about palliative care/hospice Patient will need PT OT and ST Goals of care changed from full code to DNR/DNI after reviewing advance directives and medical DPOA documentation Prognosis seems to poor. Attestations 2 Medical Necessity Statement*: Continue to manage patient cardiac stepdown unit. Diagnoses New onset of congestive heart failure I50.9 Non-STEMI (non-ST elevated myocardial infarction) I21.4 Hx of CABG Z95.1 Atrial fibrillation with RVR I48.91 Ventricular fibrillation I49.01 Cardiac arrest I46.9 Pure hypercholesterolemia E78.00 Hyperlipidemia type: pure hypercholesterolemia Metabolic acidosis E87.20 Hyperkalemia E87.5 COVID-19 U07.1 Sepsis A41.9 Septic shock A41.9; R65.21 Other coma depth, at hospital admission R40.2443 Altered mental status type: coma Coma depth: other Coma timing: at hospital admission Metabolic encephalopathy G93.41 Anoxic encephalopathy G93.1 Acute respiratory failure with hypoxia J96.01
--- NOTE | 2023-10-17 14:30 | PC.NURSE ---
mri screening talk to the sister corine daniels for pt's mri screening order from doctor for possible brainstem stroke. reviewed and filled out mri screening form.
--- NOTE | 2023-10-17 17:40 | P.CONIM_ITS ---
Providers/Reason For Consult 2 Consulting Physician/Specialty*: Dr. Mahamed Morgan MD Otolaryngology, Head & Neck Surgery Reason for Consult*: Unable to speak after extubation Requesting Physician: Dr. Ruma Bond MD Attending Physician: Ruma Bond MD Primary Care Provider: Alexa Berry DO History of Present Illness History of Present Illness Junior Li Everett is a 83 year old male who was recently extubated after 3 days of intubation. I was consulted because the patient has been unable to speak above a whisper since extubation 2 days ago. Review of Systems 2 General: Reports: 10 or more systems reviewed and unremarkable except in HPI and below Medications/Allergies Home Medications Medication Instructions Recorded Confirmed Last Taken Type No Known Home Medications 10/11/23 10/11/23 Unknown History Allergies Allergy/AdvReac Type Severity Reaction Status Date / Time metformin Allergy unknown Verified 04/09/20 08:20 rosuvastatin Allergy ADR-Muscle Verified 10/18/19 09:51 Pain Current Medications Generic Name Dose Route Start Last Admin Trade Name Freq PRN Reason Stop Dose Admin Amiodarone HCl 400 mg 10/14/23 18:00 10/16/23 08:51 Amiodarone 200 Mg Tablet PO Not Given BID KRISTY Chlorhexidine Gluconate 1 applic 10/14/23 20:00 10/16/23 20:29 Chlorhexidine Gluconate 4% Btl 118 Ml TOPICAL Not Given Q24H KRISTY Enoxaparin Sodium 90 mg 10/11/23 22:00 10/17/23 09:41 Enoxaparin 100 Mg/Ml Syringe SUBCUT 90 mg Q12H KRISTY Administration Furosemide 20 mg 10/16/23 09:00 10/17/23 09:40 Furosemide 10 Mg/Ml Sdv 10ml IVP 20 mg DAILY KRISTY Administration Piperacillin Sod/Tazobactam 50 mls @ 12.5 mls/hr 10/12/23 12:00 10/17/23 17:01 Sod 3.375 gm/ Sodium Chloride IV Infused Q8H KRISTY Infusion Protocol Dextrose 125 mls @ 750 mls/hr 10/13/23 22:25 10/15/23 19:20 D10w IV Infused PRN PRN Infusion Adult Acute Hypoglycemia Nursing Protocol Protocol Amiodarone HCl/Dextrose 360 mg in 200 mls @ 0 mls/hr 10/16/23 10:51 10/17/23 12:47 Nexterone IV 0.5 mg/min .Q0M KRISTY 16.67 mls/hr Administration Protocol As Directed Insulin Human Lispro 0 unit 10/13/23 22:30 10/17/23 12:46 Insulin Lispro 100 Unit/1 Ml SUBCUT 4 unit Q6H KRISTY Administration Protocol Metoprolol Tartrate 25 mg 10/11/23 21:44 10/12/23 08:54 Metoprolol Tartrate 25 Mg Tablet PO Not Given BID@0900,2100 KRISTY Pantoprazole Sodium 40 mg 10/11/23 18:00 10/17/23 09:40 Pantoprazole 40 Mg Sdv IVP 40 mg BID KRISTY Administration Senna/Docusate Sodium 1 tab 10/12/23 09:00 10/17/23 09:35 Sennosides-Docusate Tablet PO Not Given DAILY KRISTY PFSH Acute 2 PFSH: Medical History (Updated 10/17/23 @ 17:50 by Mahamed Morgan MD) Anoxic encephalopathy Dementia Hx of coronary artery disease History of hypertension Hx of chronic arthritis History of CVA (cerebrovascular accident) Hx of chest pain Hx of cholelithiasis History of peripheral arterial disease Hx of hyperlipidemia Hx of coronary artery disease Hyperlipidemia Diabetes Hypertension Surgical History Hx of heart bypass surgery History of local excision of skin lesion Neurofibroma left thumb Hx of CABG Family History Denies family history of Anesthesia complication Bleeding disorder Social History Smoking and tobacco/nicotine status: never used tobacco/nicotine Alcohol intake: never Substance/Drug Use: never Vitals/I&O/Wt Last Vital Signs Temp 96.5 F L 10/17/23 12:00 Pulse 85 10/17/23 12:00 Resp 15 10/17/23 12:00 BP 128/65 10/17/23 12:00 Pulse Ox 94 10/17/23 12:00 O2 Del Method Room Air 10/17/23 12:00 O2 Flow Rate 2 10/11/23 16:40 FiO2 30 10/15/23 13:21 0310/17/23 10/17/23 06:59 14:59 22:59 Intake Total 265 / 473.5106 250 / 250 50 / 300 Output Total 300 / 2000 Balance -35 / -1526.4894 250 / 250 50 / 300 Weight last 48 hrs Weight 86.137 kg Weight 86.137 kg Weight 86.137 kg Weight 83.007 kg Physical Exam 2 Const: COMMON NORMALS: no acute distress, average body habitus and alert (The patient is alert and responds to commands) HENMT: COMMON NORMALS: normocephalic, atraumatic and Normal external nose present HEAD & SCALP: normocephalic and atraumatic FACE & SINUS: normal facial exam NOSE: Normal external nose present, Normal nares present and No nasal polyps present MOUTH: Normal oral and palatal mucosa present Neck/C-Spine: COMMON NORMALS: no lymphadenopathy Resp: COMMON NORMALS: normal respiratory effort, No retractions and No use of accessory muscles Neuro: SENSORIUM/ORIENTATION: Yes alert (The patient is alert and responds to commands) Urinary Catheter Management: Napoles: Cath Placed During This Visit: yes Reason for Continuing Indwelling Catheter: Acute Urinary Retention or Obstruction Urinary Catheter Date of Insertion: 10/11/23 Urinary Catheter Time of Insertion: 17:30 Data 10/17/23 04:10 10/17/23 04:10 Micro: Microbiology 10/11/23 17:50 Blood Culture - Final Blood NO GROWTH AFTER 5 DAYS 10/11/23 17:55 Blood Culture - Final Blood NO GROWTH AFTER 5 DAYS A&P Assessment and plan (1) Hoarseness of voice: Impression: Persistent Hoarseness following a brief intubation with normal true vocal cord mobilty plan: - Continue swallowing evaluation - I recommend a Neck CT with IV contrast to further evaluate the structures of the neck given the poor visualization via FFNPL secondary to copious retained secretions - I will f/u in a few days once a CT has been performed - I will review the CT and will perform a f/u FFNPL (2) Dysphagia: Impression: Dysphagia Plan: - Continue swallowing evaluation - O/W as above Consult Attestations 2 Medical Necessity Statement: I was consulted to evaluate the patient's hoarseness and vocal cords. Procedures Procedure Narrative Verbal informed consent was obtained; the patient's nose was sprayed with an Afrin/Lidocaine mix, and a flexible fiberoptic nasopharyngolaryngoscope was passed through the patient's right nostril until the nasopharynx came into view; an inspection was then carried out of the patient's nasopharynx, oropharynx, hypopharynx, and larynx with the findings noted below: - Nasopharynx: Normal - Oropharynx and hypopharynx: Exam difficult secondary to copious, retained, thickened secreations, but masses or lesions were appreciated - Larynx: Exam diffficult because of copious retained, thickened mucous, but the true vocal cords were visualized; the airway is patent, and the true vocal cords appear to be mobile bilaterally; there is chronic appearing laryngitis present Coding Level of Care Code Acute Code for Chg Fwd Diagnoses Hoarseness of voice R49.0 Dysphagia R13.10
[2023-10-17 18:00] LABS: Glucose Point of Care 130 mg/dL (70-110)
--- NOTE | 2023-10-17 20:12 | PC.NURSE ---
shift note pt able to speak few words, disoriented x4. he follow commands to raise his upper arms and squeeze my hands. noted more coughing episodes. oral suction at bedside.
--- NOTE | 2023-10-17 22:02 | W.PM.EVENTAC ---
Event Note Event Note: talked with patient's niece who is CRISTINO's daughter. she says patient's sister who is DPELVA would like to pursue comfort measures. she cannot come to hospital and is deaf. We will be having a phone conference tomorrow with CRISTINO and patient's niece at which point we will transition to comfort measures only status family not interested in pursuing neck ct, peg tube, cardiac workup or any other further procedures at this time. will keep code status dnr/dni stopped lovenox at this time. will not check labs in am, informed ENT as well. Discussed with family regarding disposition, home vs facility for hospice. They will discuss and let us know in AM. I dont believe pt will meet criteria for inpatient hospice at this time. In accordance with patients wishes that he had voiced to his sister (CRISTINO) pt will be made comfort measures in AM after conference call with family.
[2023-10-17 22:32] LABS: Glucose Point of Care 157 mg/dL (70-110)
[2023-10-18] VITALS (12 sets, daily range): BP systolic 113–136; BP diastolic 65–77; PULSE 64–77; RESP 20–29; TEMP 36.6–36.7; O2SAT 92–97; BMI 30.6
[2023-10-18] MEDS: piperacillin-tazobactam 3.375 GM in sodium chloride 0.9% (plus) 50 ML IV (04:03)
[2023-10-18 04:16] LABS: Glucose Point of Care 164 mg/dL (70-110)
[2023-10-18] MEDS: insulin lispro 100 unit/1 mL SUBCUT ×2 (04:17→10:45)
[2023-10-18 04:56] LABS: Eosinophils % 0.2 %; Hematocrit 33.6 % (37-53); Lymphocytes # 0.5 10^3/uL (0.8-4.8); Lymphocytes % 11.4 %; Mean Corpuscular HGB Conc 31.5 g/dL (30-55); Mean Corpuscular Hemoglobin 31.3 pg (27-33); Mean Corpuscular Volume 99.1 fl (82-101); Mean Platelet Volume 9.8 fL (7.4-10.4); Monocytes # 0.4 10^3/uL (0.2-0.9); Monocytes % 8.6 %; Neutrophils # 3.59 10^3/uL (1.8-7.7); Neutrophils % 78.7 %; Nucleated Red Blood Cells % 0 %; Platelet Count 209 10^3/cmm (157-399); Red Blood Count 3.39 10^6/uL (3.85-5.65); Red Cell Distribution Width 13.8 % (12.1-15.1); White Blood Count 4.56 10^3/uL (3.29-11.43)
[2023-10-18 05:21] LABS: Slide Review Slide Review Perform
[2023-10-18 05:24] LABS: Anion Gap 17.5 (5-19); Blood Urea Nitrogen 45 mg/dL (8-23); Calcium 7.7 mg/dL (8.5-10.5); Carbon Dioxide 28 mmol/L (22-29); Chloride 103 mmol/L (98-107); Creatinine Clr Calc Pharmacy 47.9848; Glucose 176 mg/dL (65-115); Magnesium 2.3 mg/dL (1.7-2.3); Osmolality Calculated 316 mOsm/kg (285-295); Potassium 3.5 mmol/L (3.5-5.1); Sodium 145 mmol/L (136-145)
--- NOTE | 2023-10-18 07:55 | PC.OT ---
OT TREATMENT HELD TODAY DUE TO FAMILY CONSIDERING COMFORT CARE.
--- NOTE | 2023-10-18 09:39 | PC.SOCIAL ---
IMM Update: pg 2 of IMM updated and reviewed w/ patients family. Copy left @ bedside and copy dated initialed and placed in chart.
[2023-10-18] MEDS: pantoprazole 40 mg SDV IVP (10:35)
[2023-10-18] MEDS: FUROsemide 10 mg/mL SDV 2mL 20 MG IVP (10:35)
[2023-10-18 10:47] LABS: Glucose Point of Care 148 mg/dL (70-110)
--- NOTE | 2023-10-18 14:04 | P.PN_ITS ---
Subjective 2 Subjective: Patient following some commands but at times stares into space. Does have a lot of secretions in mouth area. Did have an episode of aspiration overnight. Was suctioned. Patient unable to complete a neuroexam at this time with me. Unable to assess for orientation. He repeatedly tries to get out of bed and pull at his equipment. Soft restraints were used earlier and there was a sitter in place. He is unable to swallow. Please see event note from yesterday evening. Called family this morning in presence of nursing staff at nurses station. Phone was put on speaker. Discussed case with patient's niece and sister who is the DPOA. Ilana Lin and Ilana Sánchezwell. Discussed with them patient's prognosis and need for further workup with MRI to rule out a stroke and neck CT with repeat laryngoscope via ENT. I did tell the family that patient does have a lot of laryngeal edema and pooled secretions. Brainstem stroke may be suspected. Family does not want to pursue further aggressive measures or procedures at this time. Patient's sister states that he would not have wanted any of this and to live like this. They would like to pursue comfort measures at this time. They did ask me how long do I think he has and I responded saying probably days to weeks at this point. However it may be sudden with an acute aspiration event as patient does not seem to be protecting his airway that well at this time. Family would like to opt to take off the oxygen. And pursue comfort measures at this time. Vitals/I&O/Wt Last Vital Signs Temp 97.8 F 10/18/23 04:23 Pulse 77 10/18/23 12:44 Resp 29 H 10/18/23 12:44 BP 133/65 10/18/23 12:44 Pulse Ox 92 10/18/23 12:44 O2 Del Method Room Air 10/18/23 09:08 O2 Flow Rate 2 10/11/23 16:40 FiO2 30 10/15/23 13:21 10/17/23 10/18/23 10/18/23 22:59 06:59 14:59 Intake Total 195.585 / 445.585 50 / 495.585 230 / 230 Output Total 1100 / 1100 250 / 1350 550 / 550 Balance -904.415 / -654.415 -200 / -854.415 -320 / -320 Weight last 48 hrs Weight 85.984 kg Weight 86.137 kg Weight 86.137 kg Weight 86.137 kg Physical Exam 2 Narrative: Able to follow some commands. Unable to speak however. Has his mouth open and has a lot of secretions. Unable to assess for orientation. Will not follow all commands. Was trying to get out of bed earlier. Does move all 4 extremities however unable to swallow. Napoles catheter in place Abdomen soft Normal S1-S2, rhonchi at bases Heart exam: Normal S1-S2 Rhonchi bilaterally at bases. Urinary Catheter Management: Napoles: Cath Placed During This Visit: yes Reason for Continuing Indwelling Catheter: Accurate Measurement of Urinary Output in Critically Ill Patients Urinary Catheter Date of Insertion: 10/11/23 Urinary Catheter Time of Insertion: 17:30 Data 10/18/23 04:20 10/18/23 04:20 A&P Assessment and plan (1) New onset of congestive heart failure: (2) Non-STEMI (non-ST elevated myocardial infarction): (3) Hx of CABG: (4) Atrial fibrillation with RVR: (5) Ventricular fibrillation: (6) Cardiac arrest: (7) Hyperlipidemia: Qualifiers: Hyperlipidemia type: pure hypercholesterolemia Qualified Code(s): E 78.00 - Pure hypercholesterolemia, unspecified (8) Metabolic acidosis: (9) Hyperkalemia: (10) COVID-19: (11) Sepsis: (12) Septic shock: (13) Altered mental status: Qualifiers: Altered mental status type: coma Coma depth: other Coma timing: at hospital admission Qualified Code(s): R40.2443 - Other coma, without documented Mally coma scale score, or with partial score reported, at hospital admission (14) Metabolic encephalopathy: (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: (16) Acute respiratory failure with hypoxia: Plan 83 male who was recently discharged from [facility] 2 days ago before his admission to the hospital for management & evaluation of respiratory distress, he was diagnosed with acute hypoxic hypercarbic respiratory failure, new onset CHF, non-STEMI, he was put on BiPAP at the time of admission, and next 12 hours patient had wide QRS rhythm, he lost pulse CODE BLUE was called after 2 rounds of epi ROSC was obtained there was concern for V-fib however he does have A-fib with left bundle branch block, his troponins were not remarkably high, echo showed mildly reduced EF, he was admitted as septic shock to the ICU, required Levophed along dobutamine and vasopressin at some point which was gradually weaned off, for his A-fib he was put on amiodarone drip which we have discontinued on 10/14, transition to p.o. regimen, please note his A1c is below 7 however his blood sugar was above 400 with high anion gap I started insulin drip which improved his metabolic acidosis and hyperglycemia. He was given bicarb drip on admission which was running through D5, I have discontinued bicarb drip as well, off sedation 10/14 since 5 AM, able to follow some commands. Patient was extubated 10/15/2023. A-fib plus left bundle branch block most likely cause of wide QRS rhythm. Cardiology on board. # Comfort measures #Cardiac arrest related to severe sepsis secondary to COVID-19 #Concern for V-fib, A-fib with RVR with left bundle branch block? #Systolic CHF exacerbation #History of CABG #CHEYENNE most likely secondary to cardiorenal and shock #COVID-19 related pneumonia, septic shock # Vent dependent Respiratory failure secondary to hypoxic hypercarbic respite failure - resolved #Dysphagia #Possible Stroke? #Laryngeal edema #Pooled Pharyngeal secretion -Please see subjective part of this note above ? As per family wishes we will transition to comfort measures at this time. Family does not want to pursue any additional workup for laryngeal edema, dysphagia, stroke. They would like to keep the patient comfortable as he would not have wanted to be in this situation. Family would like to keep him DNR/DNI at this time. ? Conversation took place in presence of nursing staff. -Family?with case management to set up placement possibly at [facility]. Attestations 2 Medical Necessity Statement*: Comfort measures Diagnoses New onset of congestive heart failure I50.9 Non-STEMI (non-ST elevated myocardial infarction) I21.4 Hx of CABG Z95.1 Atrial fibrillation with RVR I48.91 Ventricular fibrillation I49.01 Cardiac arrest I46.9 Pure hypercholesterolemia E78.00 Hyperlipidemia type: pure hypercholesterolemia Metabolic acidosis E87.20 Hyperkalemia E87.5 COVID-19 U07.1 Sepsis A41.9 Septic shock A41.9; R65.21 Other coma depth, at hospital admission R40.2443 Altered mental status type: coma Coma depth: other Coma timing: at hospital admission Metabolic encephalopathy G93.41 Anoxic encephalopathy G93.1 Acute respiratory failure with hypoxia J96.01
--- NOTE | 2023-10-18 17:52 | P.PN_ITS ---
Subjective 2 Subjective: Patient still has difficulty in communicating. The vital signs remained stable. No recurrence of any malignant arrhythmias on the monitor . The family has decided to keep the patient just on comfort care only. Medications: Medication Review Details: Current Medications Acetaminophen (Acetaminophen 325 Mg Tablet) 650 mg PO Q4H PRN PRN Reason: Temperature greater than 100.5 Acetaminophen (Acetaminophen 650 Mg Supp) 650 mg NM Q4H PRN PRN Reason: Temperature greater than 100.5 Albuterol Sulfate (Albuterol 2.5 Mg/3 Ml Neb) 2.5 mg INHALATION Q4H.RESPIRATORY PRN PRN Reason: SHORTNESS OF BREATH Artificial Tears (Artificial Tears Op Soln 15 Ml Btl) 2 drop EYE-BOTH Q2H PRN PRN Reason: DRY EYE(S) Atropine Sulfate (Atropine 1% Op Soln 2 Ml Btl) 3 drop SUBLINGUAL Q4H PRN PRN Reason: Excessive Secretions, Rattling Bisacodyl (Bisacodyl 10 Mg Supp) 10 mg NM DAILY PRN PRN Reason: Fecal Impaction Camphor/Menthol/Phenol (Blistex Lip Oint 7 Gm Tube) 1 applic TOPICAL Q2H PRN PRN Reason: DRY LIPS Diphenhydramine HCl (Diphenhydramine 25 Mg Capsule) 25 mg PO Q4H PRN PRN Reason: ITCHING Epinephrine (Racepinephrine 0.5 Ml Neb) 0.5 ml INHALATION Q4H.RESPIRATORY PRN PRN Reason: Stridor Glycerin (Glycerin Adult Supp) 1 each NM DAILY PRN PRN Reason: CONSTIPATION Glycopyrrolate (Glycopyrrolate 0.2 Mg/Ml Sdv 2 Ml) 0.2 mg IV Q4H PRN PRN Reason: Excessive Secretions, Rattling Lorazepam (Lorazepam 2 Mg/Ml Inj 1 Ml) 1 - 2 mg IVP Q8H PRN PRN Reason: Anxiety, Agitation or Restless Lorazepam (Lorazepam 2 Mg/Ml Inj 1 Ml) 2 mg IVP Q30M PRN PRN Reason: SEIZURES Morphine Sulfate (Morphine 4 Mg/Ml Sdv 1 Ml) 2 - 10 mg IVP Q15M PRN PRN Reason: Moderate To Severe Pain or SOB Morphine Sulfate (Morphine 10 Mg/0.5 Ml Oral Liq Ud) 2 - 10 mg SUBLINGUAL Q2H PRN PRN Reason: Moderate To Severe Pain or SOB Ondansetron HCl (Ondansetron 2 Mg/Ml Sdv 2 Ml) 4 mg IVP Q8H PRN PRN Reason: NAUSEA AND VOMITING Saliva Substitute (Saliva Stimulant [place] 30 Ml Btl) 1 spray MUCOUS MEM Q2H PRN PRN Reason: DRY MOUTH Vitals/I&O/Wt Last Vital Signs Temp 97.8 F 10/18/23 04:23 Pulse 77 10/18/23 14:00 Resp 29 H 10/18/23 12:44 BP 133/65 10/18/23 12:44 Pulse Ox 92 10/18/23 12:44 O2 Del Method Room Air 10/18/23 09:08 O2 Flow Rate 2 10/11/23 16:40 FiO2 30 10/15/23 13:21 10/18/23 10/18/23 10/18/23 06:59 14:59 22:59 Intake Total 50 / 495.585 280 / 280 Output Total 250 / 1350 550 / 550 Balance -200 / -854.415 -270 / -270 Weight last 48 hrs Weight 189 lb 9 oz Weight 189 lb 14.4 oz Weight 189 lb 14.4 oz Weight 189 lb 14.4 oz Physical Exam 2 Narrative: GENERAL: The patient is alert and oriented to person. HEENT: Minimal pallor. No icterus or lymphadenopathy.Oral cavity: There are no mucous membrane lesions. NECK: Trachea appears to be central. No masses noted. No JVD or thyromegaly appreciated. RESPIRATORY: Chest is symmetrical. No intercostals muscle retraction or any accessory muscle activation. There is no chest wall tenderness. Breath sounds are heard bilaterally. No rales or rhonchi heard. No evidence of any consolidation. BREASTS: Deferred. HEART: The heart sounds are normal. No S3 or S4. Short systolic murmur in the lower sternal border. No diastolic murmurs. No pericardial rub ABDOMEN: No vessel pulsations or distention. No tenderness. No organomegaly appreciated. Bowel sounds are normally heard. : Deferred. RECTAL: Deferred. LYMPHATIC: No lymphadenopathy noted in the neck. EXTREMITIES: Trace edema with no cyanosis. MUSCULOSKELETAL: No acute joint deformities or swelling SKIN: There are no significant rashes or ecchymosis NEUROPSYCHIATRIC: Patient is alert and oriented to person. No focal motor deficit. Urinary Catheter Management: Napoles: Cath Placed During This Visit: yes Reason for Continuing Indwelling Catheter: Accurate Measurement of Urinary Output in Critically Ill Patients Urinary Catheter Date of Insertion: 10/11/23 Urinary Catheter Time of Insertion: 17:30 Data 10/18/23 04:20 10/18/23 04:20 Other Labs: Laboratory Last Values WBC 4.56 10^3/uL (3.29-11.43) 10/18/23 04:20 RBC 3.39 10^6/uL (3.85-5.65) L 10/18/23 04:20 Hgb 10.60 g/dL (11.27-16.99) L 10/18/23 04:20 Hct 33.6 % (37-53) L 10/18/23 04:20 MCV 99.1 fl (82-101) 10/18/23 04:20 MCH 31.3 pg (27-33) 10/18/23 04:20 MCHC 31.5 g/dL (30-55) 10/18/23 04:20 RDW 13.8 % (12.1-15.1) 10/18/23 04:20 Plt Count 209 10^3/cmm (157-399) 10/18/23 04:20 MPV 9.8 fL (7.4-10.4) 10/18/23 04:20 Neut % (Auto) 78.7 % 10/18/23 04:20 Lymph % (Auto) 11.4 % 10/18/23 04:20 [place] % (Auto) 8.6 % 10/18/23 04:20 Eos % (Auto) 0.2 % 10/18/23 04:20 Baso % (Auto) 0.0 % 10/18/23 04:20 Neut # (Auto) 3.59 10^3/uL (1.8-7.7) 10/18/23 04:20 Lymph # (Auto) 0.5 10^3/uL (0.8-4.8) L 10/18/23 04:20 [place] # (Auto) 0.4 10^3/uL (0.2-0.9) 10/18/23 04:20 Eos # (Auto) 0.0 10^3/uL (0.0-0.8) 10/18/23 04:20 Baso # (Auto) 0.0 10^3/uL (0.0-0.1) 10/18/23 04:20 Nucleated RBC % (auto) 0 % 10/18/23 04:20 Nucleated RBCs # 0.0 /100WBC 10/18/23 04:20 PT 16.10 SECONDS (12.1-14.9) H 10/11/23 16:26 INR 1.25 (0.8-1.2) H 10/11/23 16:26 APTT 35.2 SECONDS (23.9-36.7) 10/11/23 16:26 D-Dimer 1.56 ug/mLFEU (0-0.59) H 10/11/23 16:16 Specimen Type Arterial 10/15/23 04:25 Sample Site Radial, right 10/15/23 04:25 ABG pH 7.43 (7.35-7.45) 10/15/23 04:25 ABG pCO2 42.9 mmHg (35-45) 10/15/23 04:25 ABG pO2 85.8 mmHg (80.0-100.0) 10/15/23 04:25 ABG PO2/FiO2 Ratio 0 10/15/23 04:25 ABG HCO3 28.1 mmol/L (22-26) H 10/15/23 04:25 ABG O2 Saturation 100.0 10/12/23 06:25 ABG Base Excess 3.3 mmol/L (-2.0-2.0) H 10/15/23 04:25 David Test Pos 10/15/23 04:25 A-a O2 Gradient 57.9 mmHg (5-10) H 10/12/23 06:25 Hematocrit 33.3 % (42-52) L 10/15/23 04:25 Hgb O2 Saturation 98.6 % (95-100) 10/12/23 06:25 Carboxyhemoglobin 0.7 %THgb (0.4-20.1) 10/12/23 06:25 Methemoglobin 0.7 % (0.4-1.5) 10/12/23 06:25 Total Hemoglobin 13.2 g/dL (14-18) L 10/12/23 06:25 Sodium 135.0 mmol/L (131-143) 10/12/23 06:25 Potassium 5.1 mmol/L (3.5-5.0) H 10/12/23 06:25 Glucose 493.0 mg/dL (70-115) H 10/12/23 06:25 Ionized Calcium 1.0 mmol/L (1.1-1.4) L 10/12/23 06:25 O2 Delivery Device Vent 10/15/23 04:25 O2 Liters/Min 2.0 % 10/11/23 16:45 FiO2 30.0 % 10/15/23 04:25 Tidal Volume 0.40 10/15/23 04:25 PEEP 6.0 cmH20 10/15/23 04:25 Regrader ID [email or web address] 10/15/23 04:25 Sodium 145 mmol/L (136-145) 10/18/23 04:20 Potassium 3.5 mmol/L (3.5-5.1) 10/18/23 04:20 Chloride 103 mmol/L (98-107) 10/18/23 04:20 Carbon Dioxide 28 mmol/L (22-29) 10/18/23 04:20 Anion Gap 17.5 (5-19) 10/18/23 04:20 BUN 45 mg/dL (8-23) H 10/18/23 04:20 Creatinine 1.2 mg/dL (0.7-1.2) 10/18/23 04:20 GFR Calculation Not Reportable 10/18/23 04:20 Glucose 176 mg/dL (65-115) H 10/18/23 04:20 POC Glucose 148 mg/dL (70-110) H 10/18/23 10:43 Calculated Osmolality 316 mOsm/kg (285-295) H 10/18/23 04:20 Lactic Acid 3.3 mmol/L (0.5-2.2) H 10/12/23 13:45 Lactic Acid (Sepsis) 4.3 mmol/L (0.5-2.2) H* 10/12/23 16:45 Lactate 4.3 mmol/L (0.5-2.2) H* 10/12/23 08:34 Calcium 7.7 mg/dL (8.5-10.5) L 10/18/23 04:20 Phosphorus 3.9 mg/dL (2.5-4.5) 10/17/23 04:10 Magnesium 2.3 mg/dL (1.7-2.3) 10/18/23 04:20 Total Bilirubin 0.7 mg/dL (0.15-1.2) 10/14/23 03:59 AST 78 U/L (0-40) H 10/14/23 03:59 ALT 120 U/L (0-41) H 10/14/23 03:59 Alkaline Phosphatase 78 U/L (40-130) 10/14/23 03:59 Ammonia 18 umol/L (16-60) 10/11/23 16:26 Creatine Kinase 467 U/L (39-308) H* 10/15/23 04:50 Troponin T Baseline 29 ng/L (0-15) H 10/12/23 06:22 Troponin T 120 Minute 61.52 ng/L (0-15) H 10/12/23 08:34 Delta Troponin T 32.52 ABS# (0-10) H* 10/12/23 08:34 Troponin T Hi Sens 6Hr 131.8 ng/L (0-15) H 10/12/23 13:45 Troponin T Hi Sens 6Hr Delta 102.8 ng/L (0-12) H* 10/12/23 13:45 C-Reactive Protein 286.6 mg/L (0.0-4.9) H 10/12/23 04:52 NT-Pro-B Natriuret Pep 91402 pg/mL (0-450) H 10/11/23 16:26 Total Protein 5.4 g/dL (6.6-8.7) L 10/14/23 03:59 Albumin 2.5 g/dL (3.5-5.2) L 10/14/23 03:59 Globulin 2.9 g/dL (1.3-4.6) 10/14/23 03:59 Vitamin B12 576 pg/mL (232-1245) 10/11/23 16:26 Procalcitonin 1.01 ng/mL (0-0.5) H 10/11/23 16:26 TSH 1.43 uIU/mL (0.27-4.20) 10/11/23 16:26 Urine Color Yellow (Yellow) 10/11/23 17:47 Urine Appearance Clear (CLEAR) 10/11/23 17:47 Urine pH 5 (5-7) 10/11/23 17:47 Ur Specific [place] 1.020 (1.005-1.030) 10/11/23 17:47 Urine Protein 1+ (Negative) H 10/11/23 17:47 Urine Glucose (UA) 4+ (Normal) H 10/11/23 17:47 Urine Ketones 2+ (Negative) H 10/11/23 17:47 Urine Blood 2+ (Negative) H 10/11/23 17:47 Urine Nitrate Negative (Negative) 10/11/23 17:47 Urine Bilirubin Neg (Negative) 10/11/23 17:47 Urine Urobilinogen 1 mg/dL (Negative) H 10/11/23 17:47 Ur Leukocyte Esterase Negative (Negative) 10/11/23 17:47 Urine RBC 5-10 /hpf (0-2) H 10/11/23 17:47 Urine WBC 0-4 /hpf (0-5) H 10/11/23 17:47 Ur Squamous Epith Cells 0-4 /hpf (0-5) H 10/11/23 17:47 Amorphous Sediment Trace /hpf 10/11/23 17:47 Urine Bacteria Trace /hpf (NONE) 10/11/23 17:47 Urine Mucus 2+ /hpf 10/11/23 17:47 Urine Opiates Screen Negative ng/mL (Negative) 10/11/23 17:47 Ur Barbiturates Screen Negative ng/mL (Negative) 10/11/23 17:47 Ur Phencyclidine Scrn Negative ng/mL (Negative) 10/11/23 17:47 Ur Amphetamines Screen Negative ng/mL (Negative) 10/11/23 17:47 U Benzodiazepines Scrn Negative ng/mL (Negative) 10/11/23 17:47 Urine Cocaine Screen Negative ng/mL (Negative) 10/11/23 17:47 U Marijuana (THC) Screen Negative ng/mL (Negative) 10/11/23 17:47 Adenovirus (PCR) Not detected (NOT DETECT) 10/11/23 18:20 C. pneumoniae DNA (PCR) Not detected (NOT DETECT) 10/11/23 18:20 Coronavirus 229E (PCR) Not detected (NOT DETECT) 10/11/23 18:20 Human Metapneumovir PCR Not detected (NOT DETECT) 10/11/23 18:20 Influenza A (H1) PCR Not detected (NOT DETECT) 10/11/23 18:20 Influ A (H1/09) PCR Not detected (NOT DETECT) 10/11/23 18:20 Influenza A (H3) PCR Not detected (NOT DETECT) 10/11/23 18:20 Influenza Type A Ag negative (Negative) 10/11/23 18:20 Influenza Type A (PCR) Not detected (NOT DETECT) 10/11/23 18:20 Influenza Type B Ag negative (Negative) 10/11/23 18:20 Influenza Type B (PCR) Not detected (NOT DETECT) 10/11/23 18:20 M. pneumoniae (PCR) Not detected (NOT DETECT) 10/11/23 18:20 Parainfluenza 1 (PCR) Not detected (NOT DETECT) 10/11/23 18:20 Parainfluenza 2 (PCR) Not detected (NOT DETECT) 10/11/23 18:20 Parainfluenza 3 (PCR) Not detected (NOT DETECT) 10/11/23 18:20 Parainfluenza 4 (PCR) Not detected (NOT DETECT) 10/11/23 18:20 RSV Type A (PCR) Not detected (NOT DETECT) 10/11/23 18:20 RSV Type B (PCR) Not detected (NOT DETECT) 10/11/23 18:20 Entero/Rhino (PCR) Not detected (NOT DETECT) 10/11/23 18:20 SARS-CoV-2 (PCR) Detected (NOT DETECT) A 10/11/23 18:20 SARS-CoV-2 Ag (Rapid) negative (Negative) 10/11/23 18:20 MRSA (PCR) Not detected (NOT DETECTED) 10/12/23 18:12 A&P Assessment and plan (1) Ventricular fibrillation: Has no recurrence of malignant ventricular arrhythmia. 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 Possible Non ST lesion myocardial infarction. May discontinue the Lovenox Qualifiers: [place] vs. transplanted heart: [place] heart Qualified Code(s): I25.10 - Atherosclerotic heart disease of [place] coronary artery without angina pectoris (4) Metabolic encephalopathy: Significant improvement but still has difficulty in communication. Has underlying dementia. (5) New onset of congestive heart failure: The heart failure is currently compensated. (6) Atrial fibrillation with RVR: Patient is in intermittent atrial fibrillation. Currently seems to be in sinus rhythm. Plan Discussed with Dr. Bond Since the patient is only on comfort care, I may sign off at this point. Feel free to contact me with any further questions regarding his cardiovascular status Attestations 2 Medical Necessity Statement*: Deferred to the primary attending Coding Level of Care Code 35730 Diagnoses Ventricular fibrillation I49.01 Hypotension, unspecified hypotension type I95.9 Hypotension type: unspecified hypotension type Atherosclerosis of [place] coronary artery of [place] heart without angina pectoris I25.10 [place] vs. transplanted heart: [place] heart Metabolic encephalopathy G93.41 New onset of congestive heart failure I50.9 Atrial fibrillation with RVR I48.91
[2023-10-18] MEDS: morphine 4 mg/mL SDV 1 mL IVP (18:04)
[2023-10-18] MEDS: LORazepam 2 mg/mL INJ 1 mL IVP (21:20)
[2023-10-19 02:45] VITALS: BP 150/83; PULSE 80; RESP 22; TEMP 36.7; O2SAT 94
[2023-10-19] MEDS: morphine 4 mg/mL SDV 1 mL IVP (04:55)
[2023-10-19 05:08] VITALS: PULSE 81
--- NOTE | 2023-10-19 12:50 | PM.DCS ---
Discharge Providers Date of Admission: 10/11/23 18:24 Date of Discharge: October 19, 2023 Attending Provider at Admission: Celestina Escalante MD Attending Provider at Discharge: Ruma Bond MD Primary Care Provider: Alexa Berry DO Diagnoses at Discharge Discharge Diagnosis (1) Ventricular fibrillation: Status: Acute (2) Hypotension: Status: Acute Qualifiers: Hypotension type: unspecified hypotension type Qualified Code(s): I95.9 - Hypotension, unspecified (3) Atherosclerotic heart disease of [place] coronary artery without angina pectoris: Status: Acute Qualifiers: [place] vs. transplanted heart: [place] heart Qualified Code(s): I25.10 - Atherosclerotic heart disease of [place] coronary artery without angina pectoris (4) Metabolic encephalopathy: Status: Acute (5) New onset of congestive heart failure: Status: Acute (6) Atrial fibrillation with RVR: Status: Acute Reason for Visit Reason for Visit: [facility] Hospital Course Hospital Course Patient had a prolonged hospitalization. In short he was discharged from [facility] 2 days prior to admission for COVID 19 related respiratory distress and COVID-19 pneumonia. At our hospitalization he was diagnosed with acute hypoxic hypercarbic respiratory failure, new onset CHF, NSTEMI and was placed on BiPAP at time of admission. Patient did have loss of pulse and had cardiac arrest. CODE BLUE was called. ROSC was eventually obtained. He did have V-fib arrest versus A-fib with left bundle branch blocks. Patient was admitted to ICU with septic shock requiring Levophed dobutamine vasopressin. Amiodarone drip was also started. Eventually patient stabilized and was extubated however since extubation has been unable to speak and has significant laryngeal edema. And severe dysphagia. He has a lot of pooled secretions in his pharynx. He was evaluated by ENT during hospitalization. Further workup was ordered with neck CT and another laryngoscope however patient's family declined to pursue aggressive measures at this time. Brainstem stroke suspected possibly by neurology. Patient will follow some commands that sometimes however is confused. MRI head was to be pursued however family is declining further workup at this time. PEG tube was offered as well however in accordance with patient's wishes family has elected to pursue comfort measures at this time. DPOA is patient's sister who made the decision along with patient's niece. Patient would not have wanted to be this way. He will be discharged to care home facility with hospice at this time. [facility] to take over at this point. Physical Exam Narrative: Able to follow some commands. Unable to speak however. Has his mouth open and has a lot of secretions. Unable to assess for orientation. Will not follow all commands. Does move all 4 extremities however unable to swallow. Some movements may be nonpurposeful. Does require frequent suctioning. Napoles catheter in place Abdomen soft Normal S1-S2, rhonchi at bases Heart exam: Normal S1-S2 Rhonchi bilaterally at bases. Urinary Catheter Management: Napoles: Cath Placed During This Visit: yes Reason for Continuing Indwelling Catheter: Hospice/Comfort/Palliative Care Urinary Catheter Date of Insertion: 10/11/23 Urinary Catheter Time of Insertion: 17:30 Discharge Data Studies Completed and Pending Completed Studies During Hospitalization Category Date Time Status CT head thrombolytic 84071 Stat Cat Scan 10/11/23 16:[address] head wo con* 15600 Stat Cat Scan 10/16/23 10:50 Completed CXRP [XR chest 1V portable 76615] Routine Exams 10/12/23 09:01 Completed CXRP [XR chest 1V portable 03336] Stat Exams 10/11/23 16:28 Completed CXRP [XR chest 1V portable 37922] Stat Exams 10/12/23 07:10 Completed CV. echo complete* [id number] Routine Ultrasound 10/11/23 17:44 Completed US carotid duplex bilateral [CV carotid duplex BI* Ultrasound 10/16/23 13:05 Completed 81516] Routine Laboratory Results WBC 4.56 10^3/uL (3.29-11.43) 10/18/23 04:20 RBC 3.39 10^6/uL (3.85-5.65) L 10/18/23 04:20 Hgb 10.60 g/dL (11.27-16.99) L 10/18/23 04:20 Hct 33.6 % (37-53) L 10/18/23 04:20 MCV 99.1 fl (82-101) 10/18/23 04:20 MCH 31.3 pg (27-33) 10/18/23 04:20 MCHC 31.5 g/dL (30-55) 10/18/23 04:20 RDW 13.8 % (12.1-15.1) 10/18/23 04:20 Plt Count 209 10^3/cmm (157-399) 10/18/23 04:20 MPV 9.8 fL (7.4-10.4) 10/18/23 04:20 Neut % (Auto) 78.7 % 10/18/23 04:20 Lymph % (Auto) 11.4 % 10/18/23 04:20 [place] % (Auto) 8.6 % 10/18/23 04:20 Eos % (Auto) 0.2 % 10/18/23 04:20 Baso % (Auto) 0.0 % 10/18/23 04:20 Neut # (Auto) 3.59 10^3/uL (1.8-7.7) 10/18/23 04:20 Lymph # (Auto) 0.5 10^3/uL (0.8-4.8) L 10/18/23 04:20 [place] # (Auto) 0.4 10^3/uL (0.2-0.9) 10/18/23 04:20 Eos # (Auto) 0.0 10^3/uL (0.0-0.8) 10/18/23 04:20 Baso # (Auto) 0.0 10^3/uL (0.0-0.1) 10/18/23 04:20 Nucleated RBC % (auto) 0 % 10/18/23 04:20 Nucleated RBCs # 0.0 /100WBC 10/18/23 04:20 PT 16.10 SECONDS (12.1-14.9) H 10/11/23 16:26 INR 1.25 (0.8-1.2) H 10/11/23 16:26 APTT 35.2 SECONDS (23.9-36.7) 10/11/23 16:26 D-Dimer 1.56 ug/mLFEU (0-0.59) H 10/11/23 16:16 Specimen Type Arterial 10/15/23 04:25 Sample Site Radial, right 10/15/23 04:25 ABG pH 7.43 (7.35-7.45) 10/15/23 04:25 ABG pCO2 42.9 mmHg (35-45) 10/15/23 04:25 ABG pO2 85.8 mmHg (80.0-100.0) 10/15/23 04:25 ABG PO2/FiO2 Ratio 0 10/15/23 04:25 ABG HCO3 28.1 mmol/L (22-26) H 10/15/23 04:25 ABG O2 Saturation 100.0 10/12/23 06:25 ABG Base Excess 3.3 mmol/L (-2.0-2.0) H 10/15/23 04:25 David Test Pos 10/15/23 04:25 A-a O2 Gradient 57.9 mmHg (5-10) H 10/12/23 06:25 Hematocrit 33.3 % (42-52) L 10/15/23 04:25 Hgb O2 Saturation 98.6 % (95-100) 10/12/23 06:25 Carboxyhemoglobin 0.7 %THgb (0.4-20.1) 10/12/23 06:25 Methemoglobin 0.7 % (0.4-1.5) 10/12/23 06:25 Total Hemoglobin 13.2 g/dL (14-18) L 10/12/23 06:25 Sodium 135.0 mmol/L (131-143) 10/12/23 06:25 Potassium 5.1 mmol/L (3.5-5.0) H 10/12/23 06:25 Glucose 493.0 mg/dL (70-115) H 10/12/23 06:25 Ionized Calcium 1.0 mmol/L (1.1-1.4) L 10/12/23 06:25 O2 Delivery Device Vent 10/15/23 04:25 O2 Liters/Min 2.0 % 10/11/23 16:45 FiO2 30.0 % 10/15/23 04:25 Tidal Volume 0.40 10/15/23 04:25 PEEP 6.0 cmH20 10/15/23 04:25 Family [employer] Divorce Legal [employer] ID [email or web address] 10/15/23 04:25 Sodium 145 mmol/L (136-145) 10/18/23 04:20 Potassium 3.5 mmol/L (3.5-5.1) 10/18/23 04:20 Chloride 103 mmol/L (98-107) 10/18/23 04:20 Carbon Dioxide 28 mmol/L (22-29) 10/18/23 04:20 Anion Gap 17.5 (5-19) 10/18/23 04:20 BUN 45 mg/dL (8-23) H 10/18/23 04:20 Creatinine 1.2 mg/dL (0.7-1.2) 10/18/23 04:20 GFR Calculation Not Reportable 10/18/23 04:20 Glucose 176 mg/dL (65-115) H 10/18/23 04:20 POC Glucose 148 mg/dL (70-110) H 10/18/23 10:43 Calculated Osmolality 316 mOsm/kg (285-295) H 10/18/23 04:20 Lactic Acid 3.3 mmol/L (0.5-2.2) H 10/12/23 13:45 Lactic Acid (Sepsis) 4.3 mmol/L (0.5-2.2) H* 10/12/23 16:45 Lactate 4.3 mmol/L (0.5-2.2) H* 10/12/23 08:34 Calcium 7.7 mg/dL (8.5-10.5) L 10/18/23 04:20 Phosphorus 3.9 mg/dL (2.5-4.5) 10/17/23 04:10 Magnesium 2.3 mg/dL (1.7-2.3) 10/18/23 04:20 Total Bilirubin 0.7 mg/dL (0.15-1.2) 10/14/23 03:59 AST 78 U/L (0-40) H 10/14/23 03:59 ALT 120 U/L (0-41) H 10/14/23 03:59 Alkaline Phosphatase 78 U/L (40-130) 10/14/23 03:59 Ammonia 18 umol/L (16-60) 10/11/23 16:26 Creatine Kinase 467 U/L (39-308) H* 10/15/23 04:50 Troponin T Baseline 29 ng/L (0-15) H 10/12/23 06:22 Troponin T 120 Minute 61.52 ng/L (0-15) H 10/12/23 08:34 Delta Troponin T 32.52 ABS# (0-10) H* 10/12/23 08:34 Troponin T Hi Sens 6Hr 131.8 ng/L (0-15) H 10/12/23 13:45 Troponin T Hi Sens 6Hr Delta 102.8 ng/L (0-12) H* 10/12/23 13:45 C-Reactive Protein 286.6 mg/L (0.0-4.9) H 10/12/23 04:52 NT-Pro-B Natriuret Pep 44727 pg/mL (0-450) H 10/11/23 16:26 Total Protein 5.4 g/dL (6.6-8.7) L 10/14/23 03:59 Albumin 2.5 g/dL (3.5-5.2) L 10/14/23 03:59 Globulin 2.9 g/dL (1.3-4.6) 10/14/23 03:59 Vitamin B12 576 pg/mL (232-1245) 10/11/23 16:26 Procalcitonin 1.01 ng/mL (0-0.5) H 10/11/23 16:26 TSH 1.43 uIU/mL (0.27-4.20) 10/11/23 16:26 Urine Color Yellow (Yellow) 10/11/23 17:47 Urine Appearance Clear (CLEAR) 10/11/23 17:47 Urine pH 5 (5-7) 10/11/23 17:47 Ur Specific [place] 1.020 (1.005-1.030) 10/11/23 17:47 Urine Protein 1+ (Negative) H 10/11/23 17:47 Urine Glucose (UA) 4+ (Normal) H 10/11/23 17:47 Urine Ketones 2+ (Negative) H 10/11/23 17:47 Urine Blood 2+ (Negative) H 10/11/23 17:47 Urine Nitrate Negative (Negative) 10/11/23 17:47 Urine Bilirubin Neg (Negative) 10/11/23 17:47 Urine Urobilinogen 1 mg/dL (Negative) H 10/11/23 17:47 Ur Leukocyte Esterase Negative (Negative) 10/11/23 17:47 Urine RBC 5-10 /hpf (0-2) H 10/11/23 17:47 Urine WBC 0-4 /hpf (0-5) H 10/11/23 17:47 Ur Squamous Epith Cells 0-4 /hpf (0-5) H 10/11/23 17:47 Amorphous Sediment Trace /hpf 10/11/23 17:47 Urine Bacteria Trace /hpf (NONE) 10/11/23 17:47 Urine Mucus 2+ /hpf 10/11/23 17:47 Urine Opiates Screen Negative ng/mL (Negative) 10/11/23 17:47 Ur Barbiturates Screen Negative ng/mL (Negative) 10/11/23 17:47 Ur Phencyclidine Scrn Negative ng/mL (Negative) 10/11/23 17:47 Ur Amphetamines Screen Negative ng/mL (Negative) 10/11/23 17:47 U Benzodiazepines Scrn Negative ng/mL (Negative) 10/11/23 17:47 Urine Cocaine Screen Negative ng/mL (Negative) 10/11/23 17:47 U Marijuana (THC) Screen Negative ng/mL (Negative) 10/11/23 17:47 Adenovirus (PCR) Not detected (NOT DETECT) 10/11/23 18:20 C. pneumoniae DNA (PCR) Not detected (NOT DETECT) 10/11/23 18:20 Coronavirus 229E (PCR) Not detected (NOT DETECT) 10/11/23 18:20 Human Metapneumovir PCR Not detected (NOT DETECT) 10/11/23 18:20 Influenza A (H1) PCR Not detected (NOT DETECT) 10/11/23 18:20 Influ A (H1/09) PCR Not detected (NOT DETECT) 10/11/23 18:20 Influenza A (H3) PCR Not detected (NOT DETECT) 10/11/23 18:20 Influenza Type A Ag negative (Negative) 10/11/23 18:20 Influenza Type A (PCR) Not detected (NOT DETECT) 10/11/23 18:20 Influenza Type B Ag negative (Negative) 10/11/23 18:20 Influenza Type B (PCR) Not detected (NOT DETECT) 10/11/23 18:20 M. pneumoniae (PCR) Not detected (NOT DETECT) 10/11/23 18:20 Parainfluenza 1 (PCR) Not detected (NOT DETECT) 10/11/23 18:20 Parainfluenza 2 (PCR) Not detected (NOT DETECT) 10/11/23 18:20 Parainfluenza 3 (PCR) Not detected (NOT DETECT) 10/11/23 18:20 Parainfluenza 4 (PCR) Not detected (NOT DETECT) 10/11/23 18:20 RSV Type A (PCR) Not detected (NOT DETECT) 10/11/23 18:20 RSV Type B (PCR) Not detected (NOT DETECT) 10/11/23 18:20 Entero/Rhino (PCR) Not detected (NOT DETECT) 10/11/23 18:20 SARS-CoV-2 (PCR) Detected (NOT DETECT) A 10/11/23 18:20 SARS-CoV-2 Ag (Rapid) negative (Negative) 10/11/23 18:20 MRSA (PCR) Not detected (NOT DETECTED) 10/12/23 18:12 Vitals Last Vital Signs Temp 98.1 F 10/19/23 02:45 Pulse 81 10/19/23 05:08 Resp 22 H 10/19/23 02:45 BP 150/83 10/19/23 02:45 Pulse Ox 94 10/19/23 02:45 O2 Del Method Room Air 10/19/23 02:45 O2 Flow Rate 2 10/11/23 16:40 FiO2 30 10/15/23 13:21 Discharge Plan Discharge Patient Disposition: Hospice - Medical Facility Condition: Stable Prescriptions: Continued No Known Home Medications Discharge Orders: Discharge Order (Routine); Ordered 10/19/23 Ordered By: Ruma Bond Referrals: [facility] [Outside] [facility] [Outside] Alexa Berry DO [Primary Care Provider] - Patient Instructions: Heart Failure (DC), Altered Mental Status (ED), CHF Stoplight, Opioid Safety, Post Heart Attack Stoplight Activity Restrictions/Additional Instructions: Hospice NPO. Patient has severe dysphagia and laryngeal edema. Discharge Attestations Time Spent in Discharge Care*: greater than 30 min Quality Metrics Clinical Quality Measures [ No reported AMI, CVA or VTE this stay] Coding Level of Care Code 03866 Total time (in minutes) for Discharge: 30 Diagnoses Ventricular fibrillation I49.01 Hypotension, unspecified hypotension type I95.9 Hypotension type: unspecified hypotension type Atherosclerosis of [place] coronary artery of [place] heart without angina pectoris I25.10 [place] vs. transplanted heart: [place] heart Metabolic encephalopathy G93.41 New onset of congestive heart failure I50.9 Atrial fibrillation with RVR I48.91
[2023-10-19] MEDS: morphine 10 mg/0.5 mL oral liq UD SUBLINGUAL (21:50)
[2023-10-19] MEDS: LORazepam 2 mg/mL INJ 1 mL IVP (22:01)
--- NOTE | 2023-10-19 23:59 | PC.NURSE ---
Patient continues with restlessnes. Patient has removed all clothing and covers this night. Breathing becoming slightly agonal. Will continue to monitor.
[2023-10-20] MEDS: morphine 10 mg/0.5 mL oral liq UD SUBLINGUAL ×2 (00:06→04:57)
[2023-10-20] MEDS: atropine 1% op soln 2 mL Btl 3 DROP SUBLINGUAL (02:10)
--- NOTE | 2023-10-20 09:08 | PC.NURSE ---
Patient left via [facility] to [facility] at 0920. Wendy at [facility] is given an updated report and Kristyn is also notified that patient is on the way.
--- NOTE | 2023-10-20 10:05 | PC.SOCIAL ---
IMM Update pg 2 of IMM updated. Msg left w/ patients niece. Copy dated, initialed and placed in chart.
== END 2023-10-20 09:30 | disposition hospice, inpatient (51) | DRG 871 ==
LOC: ER 17:40 → ICU 19:51 → CSU 10-16 22:51
PROVIDERS: Student in an Organized Health Care Education/Training Program; Admitting Provider Internal Medicine; Emergency Provider Emergency Medicine; PCP Family Medicine; Visit Provider Internal Medicine
DX: A41.89 Other specified sepsis (principal); G93.41 Metabolic encephalopathy; U07.1 COVID-19; J12.82 Pneumonia due to coronavirus disease 2019; R65.21 Severe sepsis with septic shock; J96.02 Acute respiratory failure with hypercapnia; J96.01 Acute respiratory failure with hypoxia; I50.23 Acute on chronic systolic (congestive) heart failure; I46.8 Cardiac arrest due to other underlying condition; I49.01 Ventricular fibrillation; I21.4 Non-ST elevation (NSTEMI) myocardial infarction; N17.9 Acute kidney failure, unspecified; I13.0 Hypertensive heart and chronic kidney disease with heart failure and stage 1 through stage 4 chronic kidney disease, or unspecified chronic kidney disease; I48.20 Chronic atrial fibrillation, unspecified; E87.20 Acidosis, unspecified; E87.1 Hypo-osmolality and hyponatremia; G93.1 Anoxic brain damage, not elsewhere classified; I25.10 Atherosclerotic heart disease of native coronary artery without angina pectoris; Z95.1 Presence of aortocoronary bypass graft; E78.00 Pure hypercholesterolemia, unspecified; F03.90 Unspecified dementia, unspecified severity, without behavioral disturbance, psychotic disturbance, mood disturbance, and anxiety; M19.90 Unspecified osteoarthritis, unspecified site; Z86.73 Personal history of transient ischemic attack (TIA), and cerebral infarction without residual deficits; E11.51 Type 2 diabetes mellitus with diabetic peripheral angiopathy without gangrene; E11.65 Type 2 diabetes mellitus with hyperglycemia; Z79.4 Long term (current) use of insulin; E11.22 Type 2 diabetes mellitus with diabetic chronic kidney disease; N18.9 Chronic kidney disease, unspecified; I44.7 Left bundle-branch block, unspecified; E87.5 Hyperkalemia; Z66 Do not resuscitate; Z51.5 Encounter for palliative care; R13.10 Dysphagia, unspecified; R49.0 Dysphonia; J37.0 Chronic laryngitis
CPT/HCPCS: 36415; 36416; 36592; 36600; 51702; 70450; 71045; 80048; 80051; 80053; 80306; 81001; 82140; 82330; 82550; 82607; 82803; 82805; 82962; 83605; 83735; 83880; 84100; 84145; 84443; 84484; 85025; 85378; 85610; 85730; 86140; 87040; 87070; 87205; 87426; 87486; 87581; 87633; 87641; 87804; 92507; 92523; 92526; 92610; 93005; 93306; 93880; 94002; 94003; 94640; 94660; 94799; 96365; 96367; 96372; 96375; 96376; 97162; 97166; 97530; 99291; A4222; C9113; J0131; J0248; J0283; J0330; J0696; J1100; J1250; J1650; J1815; J1940; J2060; J2270; J2543; J2598; J2704; J3010; J3370; J3475; J3480; J3490; J7030; J7042; J7050; J7070; J7799